=== PATIENT | female | born 1955 | race Two or more races ===

== ENCOUNTER → 2017-03-17 | Outpatient (CLI) | payer OTHER ==
[~2017-03-17] MED LIST: AMLO5TAB2 PO
[2017-03-17 13:29] LABS: Basophils # (auto) 0 uL; Basophils % (auto) 0.4 % (0.0-2.0); CONDITION Y; Eosinophils # (auto) 0 uL; Eosinophils % (auto) 0.3 % (0.0-7.0); Hematocrit 42.5 % (36.0-46.0); Hemoglobin 14.3 g/dL (12.2-16.2); Lymphocytes # (auto) 2.6 uL; Lymphocytes % (auto) 30.5 % (10.0-50.0); Mean Corpuscular Hemoglobin 31.4 pg (28.0-32.0); Mean Corpuscular Hgb Conc. 33.6 g/dL (32.0-36.0); Mean Corpuscular Volume 93.4 fL (80.0-100.0); Mean Platelet Volume 9.2 fL (7.4-10.4); Monocytes # (auto) 0.4 uL; Monocytes % (auto) 5.1 % (0.0-12.0); Neutrophils # (auto) 5.4 uL; Neutrophils % (auto) 63.7 % (37.0-80.0); Platelet Count (auto) 322 10^3/uL (140-450); Red Cell Distribution Width 15.1 % (11.6-16.0); White Blood Cell 8.6 10^3/uL (4.4-10.8)
[2017-03-17 14:03] LABS: Albumin 4.3 g/dL (3.4-5.0); BUN/Creatinine Ratio 15.7; Bilirubin, Total 0.6 mg/dL (0.2-1.0); Potassium 3.5 mmol/L (3.5-5.1)
[2017-03-17 14:06] LABS: Urine Bilirubin Negative (Negative); Urine Blood Negative /uL (Negative); Urine Color Yellow (Yellow); Urine Glucose Normal (Normal); Urine Ketone Negative (Negative); Urine Mucus FEW (None Seen); Urine RBC 4 /hpf (0 - 4); Urine Squamous Epithelial Cell MOD /hpf (<5); Urine Urobilinogen Normal (Negative); Urine pH 6.5 (5.0-8.0)
[2017-03-17 14:07] LABS: Urine Nitrite POSITIVE (Negative)
== END | disposition home or self-care (01) ==
LOC: LAB 13:08
PROVIDERS: ATTEND Internal Medicine
DX: Z00.00 Encounter for general adult medical examination without abnormal findings (principal); E78.2 Mixed hyperlipidemia; I10 Essential (primary) hypertension; E55.9 Vitamin D deficiency, unspecified
CPT/HCPCS: 36415; 80053; 80061; 81001; 82306; 84439; 84443; 84481; 85025

== ENCOUNTER 2017-07-04 08:18 | Day surgery (SDC) | payer OTHER ==
[2017-06-30 13:00] LABS: Basophils # (auto) 0 uL; Basophils % (auto) 0.7 % (0.0-2.0); Eosinophils # (auto) 0 uL; Eosinophils % (auto) 0.3 % (0.0-7.0); Hemoglobin 11.8 g/dL (12.2-16.2); Lymphocytes # (auto) 1.9 uL; Lymphocytes % (auto) 33.9 % (10.0-50.0); Mean Corpuscular Hemoglobin 29.6 pg (28.0-32.0); Mean Corpuscular Hgb Conc. 32.7 g/dL (32.0-36.0); Mean Corpuscular Volume 90.6 fL (80.0-100.0); Monocytes # (auto) 0.4 uL; Neutrophils # (auto) 3.3 uL; Neutrophils % (auto) 58.1 % (37.0-80.0); Nucleated Red Blood Cells % 0.4 %; Platelet Count (auto) 281 10^3/uL (140-450); Red Blood Cells 3.98 10^6/uL (4.0-5.20); Red Cell Distribution Width 14.1 % (11.8-14.3); White Blood Cell 5.6 10^3/uL (4.4-10.8)
[2017-06-30 13:23] LABS: INR 0.92 (0.9-1.15)
[~2017-07-04] VITALS: Ht 170.2 cm; Wt 54.4 kg
[~2017-07-04 08:18] MED LIST changes: +GEMF600T3 PO
[2017-07-04] MEDS ORDERED: LIDOCAINE VISCOUS 2% 15ML UD ONE (08:20)
[2017-07-04] MEDS ORDERED: SODIUM CHLORIDE LOCK 10 ML ONE (08:20)
[2017-07-04] MEDS ORDERED: diphenhdrAMINE HCL 50 MG/1 ML VL ONE (08:21)
[2017-07-04] MEDS: MIDAZOLAM HCL 5 MG/ML-1ML VIAL ONE ×2 (09:53→09:56)
[2017-07-04] MEDS: fentaNYL CITRATE 100 MCG/2 ML VL ONE ×2 (09:53→09:56)
[2017-07-04 10:48] VITALS: BP 117/51
== END 2017-07-04 10:58 | disposition home or self-care (01) ==
LOC: GI 08:18
PROVIDERS: ATTEND Internal Medicine Gastroenterology
DX: K29.60 Other gastritis without bleeding (principal); K25.9 Gastric ulcer, unspecified as acute or chronic, without hemorrhage or perforation; F17.210 Nicotine dependence, cigarettes, uncomplicated
CPT/HCPCS: 36415; 43239; 85025; 85610; 85730; J1200; J2250; J3010

== ENCOUNTER → 2018-05-28 | Outpatient (CLI) | payer OTHER ==
[~2018-05-28] MED LIST changes: +AMLO5TAB13 PO; -AMLO5TAB2 PO; -GEMF600T3 PO; +GEMF600T7 PO
[2018-05-28 16:09] LABS: Hepatitis B Surface Antibody Negative
[2018-05-28 16:43] LABS: Hepatitis B Surface Antigen Negative (Negative)
[2018-05-28 17:30] LABS: Hepatitis C Antibody Negative (Negative)
[2018-05-28 17:31] LABS: Hepatitis A Ab IgM Negative; Hepatitis B Core IgM Negative; Hepatitis B Core Total AB Negative
== END | disposition home or self-care (01) ==
LOC: LAB 15:14
PROVIDERS: ATTEND Internal Medicine
DX: Z20.5 Contact with and (suspected) exposure to viral hepatitis (principal)
CPT/HCPCS: 36415; 86704; 86705; 86706; 86709; 86803; 87340

== ENCOUNTER → 2018-07-08 | Outpatient (CLI) | payer OTHER | END | disposition home or self-care (01) | LOC: LAB 13:30 | PROVIDERS: ATTEND Internal Medicine Gastroenterology | DX: R10.9 Unspecified abdominal pain (principal) | CPT/HCPCS: 82270 ==

== ENCOUNTER → 2018-07-31 | Outpatient (CLI) | payer OTHER ==
[2018-07-31 13:40] LABS: Basophils # (auto) 0.1 uL; Basophils % (auto) 0.8 % (0.0-2.0); Eosinophils # (auto) 0.1 uL; Eosinophils % (auto) 0.6 % (0.0-7.0); Hematocrit 39.4 % (36.0-46.0); Hemoglobin 13.2 g/dL (12.2-16.2); Lymphocytes # (auto) 1.7 uL; Lymphocytes % (auto) 18.2 % (10.0-50.0); Mean Corpuscular Hemoglobin 33.2 pg (28.0-32.0); Mean Corpuscular Hgb Conc. 33.6 g/dL (32.0-36.0); Mean Corpuscular Volume 98.7 fL (80.0-100.0); Monocytes # (auto) 0.4 uL; Monocytes % (auto) 4.8 % (0.0-12.0); Neutrophils # (auto) 6.9 uL; Neutrophils % (auto) 75.6 % (37.0-80.0); Platelet Count (auto) 269 10^3/uL (140-450); Red Blood Cells 3.99 10^6/uL (4.0-5.20); Red Cell Distribution Width 13.9 % (11.8-14.3); White Blood Cell 9.1 10^3/uL (4.4-10.8)
[2018-07-31 14:05] LABS: Urine Bacteria NONE SEEN /hpf (None Seen); Urine Blood Negative /uL (Negative); Urine Hyaline Cast FEW /lpf (0 - 2); Urine Mucus FEW (None Seen); Urine Specific Gravity 1.016 (1.001-1.035); Urine WBC 8 /hpf (0 - 5)
[2018-07-31 14:24] LABS: Free T4 (Free Thyroxine) 0.94 ng/dL (0.89-1.76)
[2018-07-31 14:26] LABS: Albumin 4.3 g/dL (3.4-5.0); BUN/Creatinine Ratio 25.6; Calcium 11.5 mg/dL (8.5-10.1); Potassium 3.9 mmol/L (3.5-5.1)
[2018-07-31 14:31] LABS: Bilirubin, Total 0.5 mg/dL (0.2-1.0); Total Protein 7.9 g/dL (6.4-8.2)
== END | disposition home or self-care (01) ==
LOC: LAB 13:15
PROVIDERS: ATTEND Internal Medicine
DX: E55.9 Vitamin D deficiency, unspecified (principal); D64.9 Anemia, unspecified; E87.6 Hypokalemia; I10 Essential (primary) hypertension
CPT/HCPCS: 36415; 80053; 80061; 81001; 82306; 82607; 83540; 83615; 84439; 84443; 85025; 85652

== ENCOUNTER → 2018-10-26 | Outpatient (CLI) | payer OTHER ==
[2018-10-26 13:35] LABS: Potassium 3.5 mmol/L (3.5-5.1)
[2018-10-26 13:42] LABS: Calcium 11.5 mg/dL (8.5-10.1)
== END | disposition home or self-care (01) ==
LOC: LAB 12:12
PROVIDERS: ATTEND Internal Medicine
DX: E87.6 Hypokalemia (principal)
CPT/HCPCS: 36415; 82310; 83970; 84132

== ENCOUNTER → 2019-03-03 | Outpatient (CLI) | payer OTHER ==
[2019-03-03 13:46] LABS: Alanine Aminotransferase 22 U/L (13-56); Anion Gap 11 (5-15); Aspartate Aminotransferase 25 U/L (15-37); BUN/Creatinine Ratio 14.7; Blood Urea Nitrogen 15 mg/dL (7-18); Calcium 11.2 mg/dL (8.5-10.1); Carbon Dioxide 23 mmol/L (21-32); Chloride 104 mmol/L (98-107); GFR African American 70 mL/min; GFR Non-African American 58 mL/min; Glucose 171 mg/dL (74-106); Phosphorus 1.3 mg/dL (2.5-4.90); Potassium 3.7 mmol/L (3.5-5.1); Sodium 138 mmol/L (136-145)
[2019-03-03 13:49] LABS: Alkaline Phosphatase 130 U/L (45-117); Bilirubin, Total 0.6 mg/dL (0.2-1.0); Total Protein 7.9 g/dL (6.4-8.2)
[2019-03-03 14:18] LABS: Creatinine Clearance, Urine 64.08 mL/min (75-115); Creatinine, Urine 64.9 mg/dL (30.0-125.0)
[2019-03-04 08:07] LABS: Immunoglobulin G, Serum 593 mg/dL (700-1600)
== END | disposition home or self-care (01) ==
LOC: LAB 12:53
PROVIDERS: ATTEND Internal Medicine
DX: Z01.818 Encounter for other preprocedural examination (principal); E83.52 Hypercalcemia
CPT/HCPCS: 36415; 80053; 82306; 82340; 82575; 82784; 83970; 84100; 86334

== ENCOUNTER → 2020-03-31 | Outpatient (CLI) | payer OTHER ==
[~2020-03-31] MED LIST changes: -AMLO5TAB13 PO; +AMLO5TAB15 PO
[2020-03-31 12:23] LABS: Basophils # (auto) 0 10 ^3/uL (0-0.2); Basophils % (auto) 0.7 % (0.0-2.0); Eosinophils # (auto) 0.1 10 ^3/uL (0-0.8); Eosinophils % (auto) 1.4 % (0.0-7.0); Hematocrit 40.1 % (36.0-46.0); Hemoglobin 12.9 g/dL (12.2-16.2); Lymphocytes # (auto) 1.4 10 ^3/uL (0.4-5.4); Lymphocytes % (auto) 23.4 % (10.0-50.0); Mean Corpuscular Hemoglobin 29.9 pg (28.0-32.0); Mean Corpuscular Hgb Conc. 32.1 g/dL (32.0-36.0); Mean Corpuscular Volume 93.1 fL (80.0-100.0); Monocytes # (auto) 0.5 10 ^3/uL (0-1.3); Monocytes % (auto) 7.8 % (0.0-12.0); Neutrophils # (auto) 4.1 10 ^3/uL (1.6-8.6); Neutrophils % (auto) 66.7 % (37.0-80.0); Nucleated Red Blood Cells % 0.1 %; Platelet Count (auto) 250 10^3/uL (140-450); Red Blood Cells 4.31 10^6/uL (4.0-5.20); Red Cell Distribution Width 15.2 % (11.8-14.3); White Blood Cell 6.2 10^3/uL (4.4-10.8)
[2020-03-31 12:29] LABS: Urine Bacteria FEW /hpf (None Seen); Urine Blood Negative /uL (Negative); Urine Mucus FEW (None Seen); Urine Specific Gravity 1.019 (1.001-1.035); Urine WBC 639 /hpf (0 - 5); Urine WBC Clumps PRESENT /hpf (None Seen)
[2020-03-31 12:48] LABS: Potassium 3.4 mmol/L (3.5-5.1)
[2020-03-31 13:03] LABS: Albumin 3.7 g/dL (3.4-5.0); BUN/Creatinine Ratio 14.3; Bilirubin, Total 0.4 mg/dL (0.2-1.0); Calcium 10.5 mg/dL (8.5-10.1); Total Protein 7.3 g/dL (6.4-8.2)
== END | disposition home or self-care (01) ==
LOC: LAB 11:56
PROVIDERS: ATTEND Internal Medicine
DX: E83.52 Hypercalcemia (principal); M85.80 Other specified disorders of bone density and structure, unspecified site; E78.5 Hyperlipidemia, unspecified; I10 Essential (primary) hypertension
CPT/HCPCS: 36415; 80053; 80061; 81001; 82043; 83970; 84439; 84443; 85025; 85652

== ENCOUNTER → 2020-04-04 | Outpatient (CLI) | payer OTHER | END | disposition home or self-care (01) | LOC: LAB 13:10 | PROVIDERS: ATTEND Internal Medicine | DX: E78.5 Hyperlipidemia, unspecified (principal) ==

== ENCOUNTER → 2020-05-05 | Outpatient (CLI) | payer OTHER | END | disposition home or self-care (01) | LOC: LAB 14:49 | PROVIDERS: ATTEND Internal Medicine | DX: I10 Essential (primary) hypertension (principal) ==

== ENCOUNTER → 2020-06-02 | Outpatient (CLI) | payer OTHER | END | disposition home or self-care (01) | LOC: LAB 11:36 | PROVIDERS: ATTEND Internal Medicine | DX: E83.52 Hypercalcemia (principal) | CPT/HCPCS: 36415; 82565; 84520 ==

== ENCOUNTER → 2020-06-09 | Outpatient (CLI) | payer OTHER ==
[2020-06-09 13:55] LABS: Calcium 10.2 mg/dL (8.5-10.1); Potassium 4.4 mmol/L (3.5-5.1)
== END | disposition home or self-care (01) ==
LOC: LAB 12:43
PROVIDERS: ATTEND Internal Medicine
DX: Z01.818 Encounter for other preprocedural examination (principal)
CPT/HCPCS: 36415; 80048

== ENCOUNTER → 2021-04-12 | Outpatient (CLI) | payer OTHER ==
[~2021-04-12] MED LIST changes: +AMLO-489 PO; -AMLO5TAB15 PO; +GEMF-19 PO; -GEMF600T7 PO
[2021-04-12 08:28] LABS: Basophils # (auto) 0.1 10 ^3/uL (0-0.2); Basophils % (auto) 1.1 % (0.0-2.0); Eosinophils # (auto) 0.1 10 ^3/uL (0-0.8); Eosinophils % (auto) 1.5 % (0.0-7.0); Hematocrit 38.8 % (36.0-46.0); Hemoglobin 12.7 g/dL (12.2-16.2); Lymphocytes # (auto) 2.5 10 ^3/uL (0.4-5.4); Lymphocytes % (auto) 46.2 % (10.0-50.0); Mean Corpuscular Hemoglobin 29.3 pg (28.0-32.0); Mean Corpuscular Hgb Conc. 32.6 g/dL (32.0-36.0); Mean Corpuscular Volume 89.9 fL (80.0-100.0); Monocytes # (auto) 0.4 10 ^3/uL (0-1.3); Neutrophils # (auto) 2.4 10 ^3/uL (1.6-8.6); Neutrophils % (auto) 44.2 % (37.0-80.0); Red Blood Cells 4.32 10^6/uL (4.0-5.20); Red Cell Distribution Width 17.6 % (11.8-14.3); White Blood Cell 5.4 10^3/uL (4.4-10.8)
[2021-04-12 08:31] LABS: Urine Bacteria FEW /hpf (None Seen); Urine Blood Negative /uL (Negative); Urine Hyaline Cast FEW /lpf (0 - 2); Urine Specific Gravity 1.019 (1.001-1.035); Urine WBC 37 /hpf (0 - 5)
[2021-04-12 09:15] LABS: Potassium 3.1 mmol/L (3.5-5.1)
[2021-04-12 09:26] LABS: BUN/Creatinine Ratio 24.7; Bilirubin, Total 0.3 mg/dL (0.2-1.0); Calcium 9.5 mg/dL (8.5-10.1); Total Protein 6.5 g/dL (6.4-8.2)
== END | disposition home or self-care (01) ==
LOC: LAB 07:54
PROVIDERS: ATTEND Internal Medicine
DX: I10 Essential (primary) hypertension (principal)
CPT/HCPCS: 36415; 80053; 80061; 81001; 83970; 84439; 84443; 85025; 85652

== ENCOUNTER → 2021-12-18 | Outpatient (CLI) | payer OTHER ==
[2021-12-18 11:57] LABS: Basophils # (auto) 0.1 10 ^3/uL (0-0.2); Eosinophils # (auto) 0 10 ^3/uL (0-0.8); Eosinophils % (auto) 0.8 % (0.0-7.0); Hematocrit 41.2 % (36.0-46.0); Hemoglobin 13.7 g/dL (12.2-16.2); Lymphocytes # (auto) 1.7 10 ^3/uL (0.4-5.4); Lymphocytes % (auto) 31.9 % (10.0-50.0); Mean Corpuscular Hemoglobin 31.1 pg (28.0-32.0); Mean Corpuscular Hgb Conc. 33.3 g/dL (32.0-36.0); Mean Corpuscular Volume 93.5 fL (80.0-100.0); Monocytes # (auto) 0.4 10 ^3/uL (0-1.3); Monocytes % (auto) 8.2 % (0.0-12.0); Neutrophils # (auto) 3.1 10 ^3/uL (1.6-8.6); Neutrophils % (auto) 58.1 % (37.0-80.0); Nucleated Red Blood Cells % 0.2 %; Red Blood Cells 4.41 10^6/uL (4.0-5.20); Red Cell Distribution Width 16.1 % (11.8-14.3); White Blood Cell 5.3 10^3/uL (4.4-10.8)
[2021-12-18 12:10] LABS: INR 1.02 (0.9-1.15)
[2021-12-18 12:30] LABS: Albumin 3.1 g/dL (3.4-5.0); Calcium 9.2 mg/dL (8.5-10.1); Potassium 4.1 mmol/L (3.5-5.1)
[2021-12-18 12:33] LABS: Bilirubin, Total 0.5 mg/dL (0.2-1.0); Total Protein 6.2 g/dL (6.4-8.2)
== END | disposition home or self-care (01) ==
LOC: LAB 11:25
PROVIDERS: ATTEND Internal Medicine
DX: T14.8XXA Other injury of unspecified body region, initial encounter (principal); I10 Essential (primary) hypertension; R53.83 Other fatigue; X58.XXXA Exposure to other specified factors, initial encounter; Y93.89 Activity, other specified; Y92.89 Other specified places as the place of occurrence of the external cause; Y99.8 Other external cause status
CPT/HCPCS: 36415; 80053; 82140; 84439; 84443; 85025; 85610

== ENCOUNTER 2022-08-08 11:30 | Inpatient (IN) | payer OTHER ==
[~2022-08-08] VITALS: Ht 170.2 cm; Wt 54.3 kg
[2022-08-08 12:13] LABS: Basophils # (auto) 0.1 10 ^3/uL (0-0.2); Eosinophils # (auto) 0 10 ^3/uL (0-0.8); Eosinophils % (auto) 0.2 % (0.0-7.0); Hematocrit 43.5 % (36.0-46.0); Hemoglobin 14.2 g/dL (12.2-16.2); Lymphocytes # (auto) 1.5 10 ^3/uL (0.4-5.4); Lymphocytes % (auto) 29.1 % (10.0-50.0); Mean Corpuscular Hemoglobin 30.2 pg (28.0-32.0); Mean Corpuscular Hgb Conc. 32.7 g/dL (32.0-36.0); Mean Corpuscular Volume 92.6 fL (80.0-100.0); Monocytes # (auto) 0.4 10 ^3/uL (0-1.3); Monocytes % (auto) 7.9 % (0.0-12.0); Neutrophils # (auto) 3.3 10 ^3/uL (1.6-8.6); Neutrophils % (auto) 61.8 % (37.0-80.0); Nucleated Red Blood Cells % 0.1 %; Red Cell Distribution Width 16.2 % (11.8-14.3); White Blood Cell 5.3 10^3/uL (4.4-10.8)
[2022-08-08 12:24] LABS: INR 0.92 (0.9-1.15); Partial Thromboplastin Time 28.7 sec (24.6-33.4)
[2022-08-08 12:41] LABS: Albumin 2.6 g/dL (3.4-5.0); Calcium 10.3 mg/dL (8.5-10.1); Magnesium 1.8 mg/dL (1.6-2.6); Potassium 3.8 mmol/L (3.5-5.1)
[2022-08-08 12:44] LABS: Bilirubin, Total 0.4 mg/dL (0.2-1.0); Total Protein 5.6 g/dL (6.4-8.2)
[2022-08-08] MEDS ORDERED: DOCUSATE SOD 100 MG CAP PO PRN (15:00)
[2022-08-08] MEDS ORDERED: ONDANSETRON HCL 4 MG/2 ML VIAL IV PRN (15:00)
[2022-08-08] MEDS ORDERED: hydrALAZINE HCL 20 MG/ML VL IV PRN (15:30)
[2022-08-08] MEDS: HYDROcodone-ACET 5/325MG TAB PO PRN ×2 (15:52→21:22)
[2022-08-08] MEDS ORDERED: MAGN400T6 PO (19:15)
[2022-08-08] MEDS ORDERED: PANT40T PO (19:15)
[2022-08-08] MEDS ORDERED: ALEN70TA74 PO (19:15)
[2022-08-08] MEDS ORDERED: FLUT110A INH (19:15)
[2022-08-08] MEDS ORDERED: TRAM50TA2 PO (19:15)
[2022-08-08] MEDS ORDERED: POTA-264 (19:15)
[2022-08-08 20:00] VITALS: BP 132/82
[2022-08-08] MEDS: GEMFIBROZIL 600 MG TAB PO SCH (21:35)
[2022-08-08 22:00] VITALS: BP 132/82
[2022-08-09] VITALS (9 sets, daily range): BP systolic 78–140; BP diastolic 48–85
[2022-08-09] MEDS: MORPHINE SULFATE INJ 2 MG/ml SYRG IV PRN ×2 (02:45→09:06)
[2022-08-09 06:00] LABS: Basophils # (auto) 0 10 ^3/uL (0-0.2); Basophils % (auto) 0.7 % (0.0-2.0); Eosinophils # (auto) 0 10 ^3/uL (0-0.8); Eosinophils % (auto) 0.4 % (0.0-7.0); Hematocrit 39.9 % (36.0-46.0); Hemoglobin 13.1 g/dL (12.2-16.2); Lymphocytes # (auto) 1.9 10 ^3/uL (0.4-5.4); Lymphocytes % (auto) 31.2 % (10.0-50.0); Mean Corpuscular Hemoglobin 30.9 pg (28.0-32.0); Mean Corpuscular Hgb Conc. 32.9 g/dL (32.0-36.0); Mean Corpuscular Volume 94.2 fL (80.0-100.0); Monocytes # (auto) 0.6 10 ^3/uL (0-1.3); Monocytes % (auto) 10.2 % (0.0-12.0); Neutrophils # (auto) 3.6 10 ^3/uL (1.6-8.6); Neutrophils % (auto) 57.5 % (37.0-80.0); Nucleated Red Blood Cells % 0.2 %; Red Blood Cells 4.24 10^6/uL (4.0-5.20); Red Cell Distribution Width 16.1 % (11.8-14.3); White Blood Cell 6.2 10^3/uL (4.4-10.8)
[2022-08-09 06:24] LABS: Albumin 2.2 g/dL (3.4-5.0); Calcium 9.7 mg/dL (8.5-10.1); Potassium 3.9 mmol/L (3.5-5.1)
[2022-08-09 06:27] LABS: BUN/Creatinine Ratio 27.9
[2022-08-09 06:29] LABS: Bilirubin, Total 0.4 mg/dL (0.2-1.0); Total Protein 4.7 g/dL (6.4-8.2)
[2022-08-09] MEDS ORDERED: BUPIVACAINE 0.25% INJ 50ML VIAL ONE (08:22)
[2022-08-09] MEDS ORDERED: EPINEPHrine HCL 1 MG/1 ML AMP ONE (08:22)
[2022-08-09] MEDS ORDERED: TRANEXAMIC ACID 20 ML ONE (08:22)
[2022-08-09] MEDS ORDERED: VANCOMYCIN HCL 1000 MG VL ONE (08:23)
[2022-08-09] MEDS ORDERED: MORPHINE SULF PF 5 MG/10 ML VIAL ONE ×2 (08:28→10:41)
[2022-08-09] MEDS ORDERED: KETOROLAC TROMETH 30 MG/ML 1ML VIAL ONE (08:29)
[2022-08-09] MEDS: amLODIPine BESYLATE 5 MG TAB PO SCH (10:00)
[2022-08-09] MEDS: GEMFIBROZIL 600 MG TAB PO SCH ×2 (10:00→21:28)
[2022-08-09] MEDS: ENOXAPARIN SOD 40 MG/0.4 ML SYRINGE SC SCH (10:00)
[2022-08-09] MEDS ORDERED: ceFAZolin 1GM/50ML 100 ML IV ONE (10:07)
[2022-08-09] MEDS ORDERED: TETRACAINE 1% INJ 2 ML VIAL IJ ONE (10:19)
[2022-08-09] MEDS ORDERED: fentaNYL CITRATE 100 MCG/2 ML VL ONE (10:36)
[2022-08-09] MEDS ORDERED: MIDAZOLAM HCL 2MG/2ML 2ml VIAL (1mg/ml) ONE (10:36)
[2022-08-09] MEDS ORDERED: LIDOCAINE 2% (LOCAL ANESTH.) PF 5ml SDV ONE (10:38)
[2022-08-09] MEDS ORDERED: ONDANSETRON HCL 4 MG/2 ML VIAL ONE (10:38)
[2022-08-09] MEDS ORDERED: PROPOFOL 10 MG/ML 20 ML IV ONE ×2 (10:39→12:55)
[2022-08-09] MEDS ORDERED: DexAMETHasone SOD PHOS 10MG/1ML VIAL INJ IV PRN (12:45)
[2022-08-09] MEDS ORDERED: HYDROmorphone HCL 2 MG/ML VL/or syr IV PRN (12:45)
[2022-08-09] MEDS ORDERED: NALBUPHINE HCL 10 MG/1ml INJECTION SUBCUT ONE (12:45)
[2022-08-09] MEDS ORDERED: ONDANSETRON HCL 4 MG/2 ML VIAL IV PRN (12:45)
[2022-08-09] MEDS ORDERED: KETOROLAC TROMETH 30 MG/ML 1ML VIAL IV PRN (12:45)
[2022-08-09] MEDS ORDERED: diphenhdrAMINE HCL 50 MG/1 ML VL IV PRN (12:45)
[2022-08-09] MEDS ORDERED: NALOXONE HCL 0.4 MG/ML VIAL IV PRN (12:45)
[2022-08-09] MEDS ORDERED: ENOXAPARIN SOD 40 MG/0.4 ML SYRINGE SC ONE (13:15)
[2022-08-09] MEDS: ceFAZolin 2 GM in D5W 5% 100 ML IV SCH (21:29)
[2022-08-10] VITALS (23 sets, daily range): BP systolic 74–116; BP diastolic 43–74
[2022-08-10] MEDS: ceFAZolin 2 GM in D5W 5% 100 ML IV SCH (05:15)
[2022-08-10 05:41] LABS: Basophils # (auto) 0.1 10 ^3/uL (0-0.2); Basophils % (auto) 0.8 % (0.0-2.0); Eosinophils # (auto) 0 10 ^3/uL (0-0.8); Eosinophils % (auto) 0.1 % (0.0-7.0); Hematocrit 26.5 % (36.0-46.0); Hemoglobin 8.7 g/dL (12.2-16.2); Lymphocytes # (auto) 1.9 10 ^3/uL (0.4-5.4); Lymphocytes % (auto) 25.6 % (10.0-50.0); Mean Corpuscular Hemoglobin 30.9 pg (28.0-32.0); Mean Corpuscular Volume 93.8 fL (80.0-100.0); Monocytes # (auto) 0.5 10 ^3/uL (0-1.3); Monocytes % (auto) 7.3 % (0.0-12.0); Neutrophils # (auto) 4.8 10 ^3/uL (1.6-8.6); Neutrophils % (auto) 66.2 % (37.0-80.0); Red Blood Cells 2.82 10^6/uL (4.0-5.20); White Blood Cell 7.3 10^3/uL (4.4-10.8)
[2022-08-10 05:58] LABS: BUN/Creatinine Ratio 20.3; Calcium 9.1 mg/dL (8.5-10.1); Potassium 4.3 mmol/L (3.5-5.1)
[2022-08-10] MEDS: KETOROLAC TROMETH 30 MG/ML 1ML VIAL IV PRN ×2 (08:31→22:59)
[2022-08-10] MEDS: PANTOPRAZOLE 40 MG TAB PO SCH (08:32)
[2022-08-10] MEDS: ENOXAPARIN SOD 40 MG/0.4 ML SYRINGE SC SCH (08:32)
[2022-08-10] MEDS: amLODIPine BESYLATE 5 MG TAB PO SCH (08:32)
[2022-08-10] MEDS: GEMFIBROZIL 600 MG TAB PO SCH ×2 (08:32→20:35)
[2022-08-10] MEDS: HYDROcodone-ACET 5/325MG TAB PO PRN ×3 (10:51→20:34)
[2022-08-11] MEDS: HYDROcodone-ACET 5/325MG TAB PO PRN ×3 (06:05→16:16)
[2022-08-11] MEDS: ENOXAPARIN SOD 40 MG/0.4 ML SYRINGE SC SCH (08:18)
[2022-08-11] MEDS: PANTOPRAZOLE 40 MG TAB PO SCH (08:18)
[2022-08-11] MEDS: GEMFIBROZIL 600 MG TAB PO SCH ×2 (08:18→21:09)
[2022-08-11 09:01] VITALS: BP 113/59
[2022-08-11] MEDS: amLODIPine BESYLATE 5 MG TAB PO SCH (10:00)
[2022-08-11 14:20] VITALS: BP 100/59
[2022-08-11 17:00] VITALS: BP 105/63
[2022-08-11 22:00] VITALS: BP 104/61
[2022-08-12] MEDS: KETOROLAC TROMETH 30 MG/ML 1ML VIAL IV PRN ×2 (00:46→12:12)
[2022-08-12 05:00] VITALS: BP 99/60
[2022-08-12] MEDS: HYDROcodone-ACET 5/325MG TAB PO PRN ×3 (06:29→21:46)
[2022-08-12 08:30] VITALS: BP 119/68
[2022-08-12] MEDS: amLODIPine BESYLATE 5 MG TAB PO SCH (08:37)
[2022-08-12] MEDS: ENOXAPARIN SOD 40 MG/0.4 ML SYRINGE SC SCH (08:42)
[2022-08-12] MEDS: PANTOPRAZOLE 40 MG TAB PO SCH (08:42)
[2022-08-12] MEDS: GEMFIBROZIL 600 MG TAB PO SCH ×2 (08:42→21:43)
[2022-08-12 12:55] VITALS: BP 102/53
[2022-08-12 14:23] LABS: Hematocrit 21.9 % (36.0-46.0); Hemoglobin 7.4 g/dL (12.2-16.2)
[2022-08-12] MEDS ORDERED: SODIUM FERR GLUC 62.5MG/5ML 125 MG in SODIUM CHL 0.9% 100 ML IV ONE (14:45)
[2022-08-12] MEDS ORDERED: POLYETHYLENE GLYCOL 17 GM PWDR PO ONE (14:45)
[2022-08-12 15:44] LABS: % Iron Saturation 14.7 % (15-50)
[2022-08-12 15:52] LABS: Ferritin 66.4 ng/mL (10-322); Folate (Folic Acid) 8.39 ng/mL (5.38-24)
[2022-08-12 15:53] LABS: Thyroid Stimulating Hormone 6.89 uIU/mL (0.358-3.74)
[2022-08-12 16:57] VITALS: BP 113/69
[2022-08-12] MEDS ORDERED: IRON SUCROSE COMPLEX 200 MG in SODIUM CHL 0.9% 100 ML IV ONE (18:00)
[2022-08-12 18:03] LABS: Urine Bacteria FEW /hpf (None Seen); Urine Blood Negative /uL (Negative); Urine Hyaline Cast FEW /lpf (0 - 2); Urine Mucus FEW (None Seen); Urine Specific Gravity 1.015 (1.001-1.035); Urine WBC 4 /hpf (0 - 5)
[2022-08-12 22:00] VITALS: BP 99/63
[2022-08-13] MEDS: HYDROcodone-ACET 5/325MG TAB PO PRN ×4 (03:48→20:17)
[2022-08-13 05:00] VITALS: BP 92/61
[2022-08-13 05:34] LABS: Eosinophils # (auto) 0.1 10 ^3/uL (0-0.8); Hemoglobin 7.8 g/dL (12.2-16.2); Neutrophils # (auto) 4.5 10 ^3/uL (1.6-8.6); Nucleated Red Blood Cells % 0.1 %; Red Cell Distribution Width 15.5 % (11.8-14.3); White Blood Cell 8.6 10^3/uL (4.4-10.8)
[2022-08-13 05:38] LABS: Basophils # (auto) 0.1 10 ^3/uL (0-0.2); Basophils % (auto) 0.6 % (0.0-2.0); Eosinophils % (auto) 0.9 % (0.0-7.0); Hematocrit 22.7 % (36.0-46.0); Lymphocytes # (auto) 3.2 10 ^3/uL (0.4-5.4); Lymphocytes % (auto) 37.4 % (10.0-50.0); Mean Corpuscular Hgb Conc. 34.6 g/dL (32.0-36.0); Mean Corpuscular Volume 95.5 fL (80.0-100.0); Monocytes # (auto) 0.7 10 ^3/uL (0-1.3); Monocytes % (auto) 8.4 % (0.0-12.0); Neutrophils % (auto) 52.7 % (37.0-80.0); Red Blood Cells 2.37 10^6/uL (4.0-5.20)
[2022-08-13 06:00] LABS: BUN/Creatinine Ratio 32.2; Calcium 10.1 mg/dL (8.5-10.1); Potassium 5.1 mmol/L (3.5-5.1)
[2022-08-13 09:25] VITALS: BP 117/69
[2022-08-13] MEDS: POLYETHYLENE GLYCOL 17 GM PWDR PO SCH (10:47)
[2022-08-13] MEDS: ENOXAPARIN SOD 40 MG/0.4 ML SYRINGE SC SCH (10:48)
[2022-08-13] MEDS: amLODIPine BESYLATE 5 MG TAB PO SCH (10:48)
[2022-08-13] MEDS: PANTOPRAZOLE 40 MG TAB PO SCH ×2 (10:48→21:50)
[2022-08-13] MEDS: GEMFIBROZIL 600 MG TAB PO SCH ×2 (10:48→21:50)
[2022-08-13] MEDS: IRON SUCROSE COMPLEX 200 MG in SODIUM CHL 0.9% 100 ML IV SCH (11:39)
[2022-08-13 12:37] VITALS: BP 103/61
[2022-08-13 16:50] VITALS: BP 102/62
[2022-08-13 23:30] VITALS: BP 100/64
[2022-08-14] VITALS (7 sets, daily range): BP systolic 103–123; BP diastolic 54–71
[2022-08-14] MEDS: KETOROLAC TROMETH 30 MG/ML 1ML VIAL IV PRN ×2 (01:52→10:50)
[2022-08-14 05:34] LABS: Eosinophils # (auto) 0.1 10 ^3/uL (0-0.8); Monocytes # (auto) 0.7 10 ^3/uL (0-1.3); Neutrophils # (auto) 2.7 10 ^3/uL (1.6-8.6); Nucleated Red Blood Cells % 0.1 %; Red Cell Distribution Width 15.7 % (11.8-14.3)
[2022-08-14 05:39] LABS: Albumin 1.9 g/dL (3.4-5.0); Potassium 4.7 mmol/L (3.5-5.1)
[2022-08-14 05:42] LABS: Basophils # (auto) 0 10 ^3/uL (0-0.2); Basophils % (auto) 0.8 % (0.0-2.0); Eosinophils % (auto) 1.3 % (0.0-7.0); Hematocrit 21.5 % (36.0-46.0); Lymphocytes % (auto) 36.2 % (10.0-50.0); Mean Corpuscular Hgb Conc. 32.4 g/dL (32.0-36.0); Mean Corpuscular Volume 95.7 fL (80.0-100.0); Neutrophils % (auto) 48.7 % (37.0-80.0); Red Blood Cells 2.24 10^6/uL (4.0-5.20); White Blood Cell 5.6 10^3/uL (4.4-10.8)
[2022-08-14 05:43] LABS: BUN/Creatinine Ratio 29.7; Bilirubin, Total 0.8 mg/dL (0.2-1.0); Total Protein 4.6 g/dL (6.4-8.2)
[2022-08-14] MEDS: HYDROcodone-ACET 5/325MG TAB PO PRN ×2 (07:02→21:40)
[2022-08-14] MEDS: LEVOTHYROXINE SODIUM 25 MCG TAB PO SCH (07:02)
[2022-08-14] MEDS: PANTOPRAZOLE 40 MG TAB PO SCH ×2 (08:45→21:40)
[2022-08-14] MEDS: amLODIPine BESYLATE 5 MG TAB PO SCH (08:45)
[2022-08-14] MEDS: GEMFIBROZIL 600 MG TAB PO SCH ×2 (08:46→21:40)
[2022-08-14] MEDS: POLYETHYLENE GLYCOL 17 GM PWDR PO SCH (08:46)
[2022-08-14] MEDS: IRON SUCROSE COMPLEX 200 MG in SODIUM CHL 0.9% 100 ML IV SCH (13:25)
[2022-08-14] MEDS ORDERED: dilTIAZem 25 MG/5 ML VIAL IV ONE (17:00)
[2022-08-14 18:05] LABS: Basophils # (auto) 0 10 ^3/uL (0-0.2); Eosinophils # (auto) 0 10 ^3/uL (0-0.8); Neutrophils # (auto) 3.5 10 ^3/uL (1.6-8.6)
[2022-08-14 18:07] LABS: Basophils % (auto) 0.7 % (0.0-2.0); Eosinophils % (auto) 0.7 % (0.0-7.0); Hematocrit 27.5 % (36.0-46.0); Hemoglobin 9.2 g/dL (12.2-16.2); Lymphocytes # (auto) 1.8 10 ^3/uL (0.4-5.4); Lymphocytes % (auto) 29.7 % (10.0-50.0); Mean Corpuscular Hemoglobin 31.9 pg (28.0-32.0); Mean Corpuscular Hgb Conc. 33.5 g/dL (32.0-36.0); Mean Corpuscular Volume 95.1 fL (80.0-100.0); Monocytes # (auto) 0.7 10 ^3/uL (0-1.3); Monocytes % (auto) 11.5 % (0.0-12.0); Neutrophils % (auto) 57.4 % (37.0-80.0); Nucleated Red Blood Cells % 0.1 %; Red Cell Distribution Width 15.7 % (11.8-14.3); White Blood Cell 6.2 10^3/uL (4.4-10.8)
[2022-08-15] MEDS: HYDROcodone-ACET 5/325MG TAB PO PRN ×2 (01:57→09:33)
[2022-08-15 05:26] LABS: White Blood Cell 5.3 10^3/uL (4.4-10.8)
[2022-08-15 05:28] LABS: Hematocrit 26.6 % (36.0-46.0); Hemoglobin 8.8 g/dL (12.2-16.2); Mean Corpuscular Hemoglobin 31.2 pg (28.0-32.0); Mean Corpuscular Volume 94.5 fL (80.0-100.0); Red Blood Cells 2.82 10^6/uL (4.0-5.20); Red Cell Distribution Width 16.2 % (11.8-14.3)
[2022-08-15 05:41] LABS: Albumin 2.1 g/dL (3.4-5.0); Calcium 9.9 mg/dL (8.5-10.1); Magnesium 2.2 mg/dL (1.6-2.6); Potassium 4.5 mmol/L (3.5-5.1)
[2022-08-15 05:46] LABS: BUN/Creatinine Ratio 45.2; Bilirubin, Total 0.8 mg/dL (0.2-1.0); Phosphorus 2.7 mg/dL (2.5-4.90); Total Protein 4.9 g/dL (6.4-8.2)
[2022-08-15] MEDS: LEVOTHYROXINE SODIUM 25 MCG TAB PO SCH (05:59)
[2022-08-15 06:55] LABS: Basophils % (manual) 0 (0.0-2.0); Blast Cells 0; Eosinophils % (manual) 0 (0-7); Myelocytes % 0; Promyelocytes % 0; Reactive Lymphocytes 0
[2022-08-15 08:58] LABS: Band Neutrophils % (manual) 1; Lymphocytes % (manual) 27 (10.0-50.0); Metamyelocytes % 2; Monocytes % (manual) 6 (0-12)
[2022-08-15 09:00] VITALS: BP 117/76
[2022-08-15] MEDS: PANTOPRAZOLE 40 MG TAB PO SCH (09:33)
[2022-08-15] MEDS: GEMFIBROZIL 600 MG TAB PO SCH (09:33)
[2022-08-15] MEDS: POLYETHYLENE GLYCOL 17 GM PWDR PO SCH (09:34)
[2022-08-15] MEDS: amLODIPine BESYLATE 5 MG TAB PO SCH (09:34)
[2022-08-15] MEDS ORDERED: POLY33504 PO (10:51)
[2022-08-15] MEDS ORDERED: FERRTAB18 OR (10:51)
[2022-08-15] MEDS ORDERED: ERGO1CAP23 PO (10:51)
[2022-08-15] MEDS ORDERED: LEV25T PO (10:51)
[2022-08-15] MEDS ORDERED: PANT40T PO (10:51)
[2022-08-15] MEDS ORDERED: SODIUM FERR GLUC 62.5MG/5ML 125 MG in SODIUM CHL 0.9% 100 ML IV SCH (12:00)
[2022-08-15 13:17] VITALS: BP 132/76
[2022-08-15 14:04] LABS: Hemoglobin 9.6 g/dL (12.2-16.2)
== END 2022-08-15 14:05 | disposition home health service (06) | DRG 521 ==
LOC: EDBD 11:30 → ER 11:30 → OVERFLOW 15:05 → EAST 17:25 → TELE-EAST 08-09 16:59
PROVIDERS: ADMIT Nurse Practitioner Family; ATTEND Internal Medicine
PROC: 0SRS019 Replacement of Left Hip Joint, Femoral Surface with Metal Synthetic Substitute, Cemented, Open Approach (ICD-10-PCS; principal; 2022-08-09 10:46)
PROC: 30233N1 Transfusion of Nonautologous Red Blood Cells into Peripheral Vein, Percutaneous Approach (ICD-10-PCS; 2022-08-14)
DX: S72.012A Unspecified intracapsular fracture of left femur, initial encounter for closed fracture (principal); E43 Unspecified severe protein-calorie malnutrition; S02.82XA Fracture of other specified skull and facial bones, left side, initial encounter for closed fracture; I16.1 Hypertensive emergency; Z68.1 Body mass index [BMI] 19.9 or less, adult; E78.5 Hyperlipidemia, unspecified; R00.0 Tachycardia, unspecified; D64.9 Anemia, unspecified; E03.9 Hypothyroidism, unspecified; F17.210 Nicotine dependence, cigarettes, uncomplicated; Z20.822 Contact with and (suspected) exposure to COVID-19; I10 Essential (primary) hypertension; W01.0XXA Fall on same level from slipping, tripping and stumbling without subsequent striking against object, initial encounter; M81.0 Age-related osteoporosis without current pathological fracture; Z90.49 Acquired absence of other specified parts of digestive tract; Z91.81 History of falling; Z98.51 Tubal ligation status; Y93.89 Activity, other specified; Y92.89 Other specified places as the place of occurrence of the external cause; Y99.8 Other external cause status
CPT/HCPCS: 36415; 71045; 72170; 73501; 73502; 73560; 80048; 80053; 80320; 81001; 82270; 82306; 82607; 82728; 82746; 83540; 83550; 83615; 83735; 84100; 84439; 84443; 85007; 85014; 85018; 85025; 85027; 85045; 85610; 85730; 86850; 86900; 86901; 86920; 87426; 93005; 93306; 93926; 93970; 94762; 97110; 97116; 97163; 97530; A4565; G0378; J0171; J0690; J1756; J1885; J2001; J2250; J2405; J2704; J3490; J7060

== ENCOUNTER → 2022-08-20 | Outpatient (CLI) | payer OTHER ==
[~2022-08-20] MED LIST changes: +ALEN70TA74 PO; +ERGO1CAP23 PO; +FERRTAB18 OR; +FLUT110A INH; +LEV25T PO; +MAGN400T6 PO; +PANT40T PO; +POLY33504 PO; +TRAM50TA2 PO
[2022-08-20 12:40] LABS: Basophils # (auto) 0.1 10 ^3/uL (0-0.2); Eosinophils # (auto) 0 10 ^3/uL (0-0.8); Eosinophils % (auto) 0.3 % (0.0-7.0); Mean Corpuscular Volume 97.9 fL (80.0-100.0); Monocytes # (auto) 0.4 10 ^3/uL (0-1.3)
[2022-08-20 12:42] LABS: Basophils % (auto) 0.7 % (0.0-2.0); Hemoglobin 10.9 g/dL (12.2-16.2); Lymphocytes # (auto) 1.4 10 ^3/uL (0.4-5.4); Lymphocytes % (auto) 17.8 % (10.0-50.0); Mean Corpuscular Hemoglobin 33.3 pg (28.0-32.0); Monocytes % (auto) 4.8 % (0.0-12.0); Neutrophils # (auto) 5.9 10 ^3/uL (1.6-8.6); Neutrophils % (auto) 76.4 % (37.0-80.0); Red Blood Cells 3.26 10^6/uL (4.0-5.20); Red Cell Distribution Width 16.7 % (11.8-14.3); White Blood Cell 7.7 10^3/uL (4.4-10.8)
== END | disposition home or self-care (01) ==
LOC: LAB 12:29
PROVIDERS: ATTEND Internal Medicine
DX: I10 Essential (primary) hypertension (principal)
CPT/HCPCS: 36415; 85025

== ENCOUNTER → 2022-11-26 | Outpatient (CLI) | payer MEDICARE ==
[2022-11-26 11:47] LABS: Basophils # (auto) 0.1 10 ^3/uL (0-0.2); Eosinophils # (auto) 0 10 ^3/uL (0-0.8); Eosinophils % (auto) 0.3 % (0.0-7.0); Hematocrit 44.4 % (36.0-46.0); Hemoglobin 15.4 g/dL (12.2-16.2); Lymphocytes # (auto) 1.7 10 ^3/uL (0.4-5.4); Lymphocytes % (auto) 29.9 % (10.0-50.0); Mean Corpuscular Hgb Conc. 34.8 g/dL (32.0-36.0); Mean Corpuscular Volume 94.9 fL (80.0-100.0); Monocytes # (auto) 0.5 10 ^3/uL (0-1.3); Monocytes % (auto) 8.5 % (0.0-12.0); Neutrophils # (auto) 3.3 10 ^3/uL (1.6-8.6); Neutrophils % (auto) 60.3 % (37.0-80.0); Nucleated Red Blood Cells % 0.1 %; Red Blood Cells 4.68 10^6/uL (4.0-5.20); Red Cell Distribution Width 13.7 % (11.8-14.3); White Blood Cell 5.5 10^3/uL (4.4-10.8)
[2022-11-26 12:16] LABS: Albumin 3.2 g/dL (3.4-5.0); Potassium 3.8 mmol/L (3.5-5.1)
[2022-11-26 12:21] LABS: BUN/Creatinine Ratio 17.7 (10.0-20.0); Bilirubin, Total 0.5 mg/dL (0.2-1.0); Total Protein 6.9 g/dL (6.4-8.2)
[2022-11-26 12:27] LABS: Free T4 (Free Thyroxine) 0.62 ng/dL (0.89-1.76)
[2022-11-26 12:52] LABS: Urine Bacteria FEW /hpf (None Seen); Urine Blood TRACE /uL (Negative); Urine Specific Gravity 1.016 (1.001-1.035); Urine WBC 155 /hpf (0 - 5); Urine WBC Clumps PRESENT /hpf (None Seen)
[2022-11-29 12:26] LABS: Urine Bacteria FEW /hpf (None Seen); Urine Blood Negative /uL (Negative); Urine Hyaline Cast FEW /lpf (0 - 2); Urine Specific Gravity 1.009 (1.001-1.035); Urine WBC 135 /hpf (0 - 5)
== END | disposition home or self-care (01) ==
LOC: LAB 11:31
PROVIDERS: ATTEND Internal Medicine
DX: I10 Essential (primary) hypertension (principal); E03.9 Hypothyroidism, unspecified; Z86.2 Personal history of diseases of the blood and blood-forming organs and certain disorders involving the immune mechanism
CPT/HCPCS: 36415; 80053; 80061; 81001; 82607; 83540; 84439; 84443; 85025

== ENCOUNTER → 2023-02-27 | Outpatient (CLI) | payer OTHER ==
[~2023-02-27] MED LIST changes: -AMLO-489 PO; +AMLO1TAB22 PO; -GEMF-19 PO; +GEMF-66 PO
[2023-02-27 10:56] LABS: Potassium 3.3 mmol/L (3.5-5.1)
[2023-02-27 11:05] LABS: Albumin 2.8 g/dL (3.4-5.0); BUN/Creatinine Ratio 26.1 (10.0-20.0); Calcium 9.6 mg/dL (8.5-10.1)
[2023-02-27 11:07] LABS: Bilirubin, Total 0.5 mg/dL (0.2-1.0); Total Protein 5.8 g/dL (6.4-8.2)
== END | disposition home or self-care (01) ==
LOC: LAB 09:35
PROVIDERS: ATTEND Internal Medicine Endocrinology, Diabetes & Metabolism
DX: E03.9 Hypothyroidism, unspecified (principal); E21.0 Primary hyperparathyroidism
CPT/HCPCS: 36415; 80053; 82306; 82330; 82951; 83970; 84155; 84165; 84439; 84443

== ENCOUNTER → 2023-04-25 | Outpatient (CLI) | payer OTHER ==
[2023-04-25 11:43] LABS: Basophils # (auto) 0.1 10 ^3/uL (0-0.2); Eosinophils # (auto) 0 10 ^3/uL (0-0.8); Eosinophils % (auto) 0.2 % (0.0-7.0); Monocytes # (auto) 0.3 10 ^3/uL (0-1.3); Nucleated Red Blood Cells % 0.1 %; White Blood Cell 7.6 10^3/uL (4.4-10.8)
[2023-04-25 11:45] LABS: Basophils % (auto) 1.2 % (0.0-2.0); Hematocrit 44.2 % (36.0-46.0); Hemoglobin 14.9 g/dL (12.2-16.2); Lymphocytes # (auto) 1.5 10 ^3/uL (0.4-5.4); Mean Corpuscular Hemoglobin 34.6 pg (28.0-32.0); Mean Corpuscular Hgb Conc. 33.7 g/dL (32.0-36.0); Mean Corpuscular Volume 102.7 fL (80.0-100.0); Monocytes % (auto) 4.1 % (0.0-12.0); Neutrophils # (auto) 5.7 10 ^3/uL (1.6-8.6); Neutrophils % (auto) 74.5 % (37.0-80.0); Red Blood Cells 4.31 10^6/uL (4.0-5.20); Red Cell Distribution Width 13.7 % (11.8-14.3)
[2023-04-25 11:57] LABS: INR 1.01 (0.9-1.15); Prothrombin Time 10.6 sec (9.3-11.8)
[2023-04-25 12:54] LABS: Alanine Aminotransferase 26 U/L (7-40); Albumin 3.3 g/dL (3.2-4.8); Alkaline Phosphatase 181 U/L (46-116); Anion Gap 9.8 (5-15); Aspartate Aminotransferase 35 U/L (13-40); BUN/Creatinine Ratio 15.2 (10.0-20.0); Blood Urea Nitrogen 10 mg/dL (9-23); Calcium 10.7 mg/dL (8.5-10.1); Carbon Dioxide 28.2 mmol/L (20-30); Chloride 101 mmol/L (98-107); Glucose 104 mg/dL (74-106); Sodium 139 mmol/L (136-145)
[2023-04-25 12:55] LABS: Bilirubin, Total 0.6 mg/dL (0.2-1.0); Total Protein 5.7 g/dL (5.7-8.2)
[2023-04-25 14:46] LABS: Potassium 2.9 mmol/L (3.5-5.1)
== END | disposition home or self-care (01) ==
LOC: LAB 11:25
PROVIDERS: ATTEND Internal Medicine
DX: R73.01 Impaired fasting glucose (principal); E87.6 Hypokalemia
CPT/HCPCS: 36415; 80053; 82306; 83036; 84439; 84443; 85025; 85610

== ENCOUNTER 2023-09-29 14:13 | Inpatient (IN) | payer MEDICARE, OTHER ==
[~2023-09-29] VITALS: Ht 165.1 cm; Wt 45.7 kg
[2023-09-29 16:03] LABS: Basophils # (auto) 0.1 10 ^3/uL (0-0.2); Basophils % (auto) 0.6 % (0.0-2.0); Eosinophils # (auto) 0 10 ^3/uL (0-0.8); Eosinophils % (auto) 0.1 % (0.0-7.0); Hematocrit 37.4 % (36.0-46.0); Hemoglobin 12.2 g/dL (12.2-16.2); Lymphocytes # (auto) 1.6 10 ^3/uL (0.4-5.4); Lymphocytes % (auto) 16.2 % (10.0-50.0); Mean Corpuscular Hemoglobin 35.1 pg (28.0-32.0); Mean Corpuscular Hgb Conc. 32.7 g/dL (32.0-36.0); Mean Corpuscular Volume 107.3 fL (80.0-100.0); Monocytes # (auto) 0.4 10 ^3/uL (0-1.3); Monocytes % (auto) 4.4 % (0.0-12.0); Neutrophils # (auto) 7.7 10 ^3/uL (1.6-8.6); Neutrophils % (auto) 78.7 % (37.0-80.0); Red Blood Cells 3.49 10^6/uL (4.0-5.20); Red Cell Distribution Width 12.9 % (11.8-14.3); White Blood Cell 9.8 10^3/uL (4.4-10.8)
[2023-09-29 16:10] LABS: Chloride 110 mmol/L (98-107); Potassium 3.7 mmol/L (3.5-5.1); Sodium 141 mmol/L (136-145)
[2023-09-29 16:11] LABS: Anion Gap 5 (5-15); Calcium 9.5 mg/dL (8.5-10.1); Carbon Dioxide 26 mmol/L (20-30)
[2023-09-29 16:16] LABS: BUN/Creatinine Ratio 12.3 (10.0-20.0); Blood Urea Nitrogen 8 mg/dL (9-23); Glucose 158 mg/dL (74-106)
[2023-09-29] MEDS ORDERED: APIX5TAB4 PO (17:53)
[2023-09-29] MEDS: IOHEXOL 350 MG/ML 100ML IJ ONE ×2 (21:23)
[2023-09-29] MEDS ORDERED: ONDANSETRON HCL 4 MG/2 ML VIAL IV PRN (22:00)
[2023-09-29] MEDS ORDERED: NITROGLYCERIN 0.4 MG SL TAB SL PRN (22:00)
[2023-09-29] MEDS ORDERED: MORPHINE SULFATE INJ 2 MG/ml SYRG IV PRN (22:00)
[2023-09-29] MEDS ORDERED: DOCUSATE SOD 100 MG CAP PO PRN (22:00)
[2023-09-29 22:23] LABS: INR 1.17 (0.9-1.15); Partial Thromboplastin Time 27.4 SEC (24.5-34.5); Prothrombin Time 12.2 sec (9.3-11.8)
[2023-09-29] MEDS: HEPARIN SODIUM (PORCINE) 5000 UNITS/ML 1ML VIAL IV ONE (22:23)
[2023-09-29] MEDS: ENOXAPARIN SOD 100 MG/1 ML SYRINGE SC ONE (22:24)
[2023-09-29] MEDS: HEPARIN DRIP/D5W 100UNITS/ML 250 ML IV SCH (22:24)
[2023-09-29] MEDS: HYDROcodone-ACET 5/325MG TAB PO ONE (22:26)
[2023-09-29 23:11] VITALS: PULSE 88; RESP 18; O2SAT 98
[2023-09-30] VITALS (9 sets, daily range): BP systolic 106–128; BP diastolic 65–80; PULSE 73–92; RESP 18–20; TEMP 97.5–98.2; O2SAT 96–99
[2023-09-30] MEDS: MORPHINE SULFATE INJ 2 MG/ml SYRG IV PRN (04:06)
[2023-09-30 05:23] LABS: Basophils # (auto) 0 10 ^3/uL (0-0.2); Eosinophils # (auto) 0 10 ^3/uL (0-0.8); Hemoglobin 9.7 g/dL (12.2-16.2); Lymphocytes # (auto) 2.9 10 ^3/uL (0.4-5.4); Monocytes # (auto) 0.4 10 ^3/uL (0-1.3); Monocytes % (auto) 6.6 % (0.0-12.0); Neutrophils # (auto) 2.9 10 ^3/uL (1.6-8.6); White Blood Cell 6.3 10^3/uL (4.4-10.8)
[2023-09-30 05:26] LABS: Basophils % (auto) 0.6 % (0.0-2.0); Eosinophils % (auto) 0.2 % (0.0-7.0); Hematocrit 28.1 % (36.0-46.0); Mean Corpuscular Hemoglobin 36.6 pg (28.0-32.0); Mean Corpuscular Hgb Conc. 34.4 g/dL (32.0-36.0); Mean Corpuscular Volume 106.4 fL (80.0-100.0); Neutrophils % (auto) 46.6 % (37.0-80.0); Red Blood Cells 2.64 10^6/uL (4.0-5.20); Red Cell Distribution Width 12.7 % (11.8-14.3)
[2023-09-30 05:41] LABS: Alanine Aminotransferase 17 U/L (7-40); Alkaline Phosphatase 200 U/L (46-116); Anion Gap 4 (5-15); BUN/Creatinine Ratio 14.1 (10.0-20.0); Blood Urea Nitrogen 9 mg/dL (9-23); Calcium 8.7 mg/dL (8.7-10.4); Carbon Dioxide 26 mmol/L (20-30); Chloride 111 mmol/L (98-107); Glucose 94 mg/dL (74-106); Potassium 3.2 mmol/L (3.5-5.1); Sodium 141 mmol/L (136-145)
[2023-09-30 05:42] LABS: Albumin 2.2 g/dL (3.2-4.8); Aspartate Aminotransferase 24 U/L (13-40); Bilirubin, Total 0.4 mg/dL (0.2-1.0); Total Protein 4.2 g/dL (5.7-8.2)
[2023-09-30 05:49] LABS: INR 1.23 (0.9-1.15); Prothrombin Time 12.7 sec (9.3-11.8)
[2023-09-30 06:08] LABS: Partial Thromboplastin Time > 139.0 SEC (24.5-34.5)
[2023-09-30] MEDS: LEVOTHYROXINE SODIUM 25 MCG TAB PO SCH (06:10)
[2023-09-30] MEDS ORDERED: ALENDRONATE SODIUM 10 MG TAB PO SCH (06:45)
[2023-09-30] MEDS: HEPARIN DRIP/D5W 100UNITS/ML 250 ML IV SCH (07:30)
[2023-09-30] MEDS: NICOTINE 21MG/24 HR TOPICAL PATCH TD SCH (09:51)
[2023-09-30] MEDS: FLOVENT 110 MCG IN SCH (09:52)
[2023-09-30] MEDS: GEMFIBROZIL 600 MG TAB PO SCH (09:52)
[2023-09-30] MEDS: POTASSIUM CHL 10 Meq TABLET PO SCH (09:52)
[2023-09-30] MEDS: THIAMINE HCL 100 MG TAB PO SCH (09:52)
[2023-09-30] MEDS: FOLIC ACID 1 MG TAB PO SCH (09:52)
[2023-09-30] MEDS: PANTOPRAZOLE 40 MG TAB PO SCH (09:53)
[2023-09-30] MEDS: MAGNESIUM OXIDE 400 MG TAB PO SCH (09:53)
[2023-09-30] MEDS: MULTIPLE VITAMIN TAB PO SCH (09:53)
[2023-09-30] MEDS ORDERED: amLODIPine BESYLATE 5 MG TAB PO SCH (10:00)
[2023-09-30 12:33] LABS: Magnesium 1.4 mg/dL (1.6-2.6)
[2023-09-30] MEDS: SODIUM CHLORIDE 0.9% 1,000 ML IV SCH (12:43)
[2023-09-30] MEDS: POTASSIUM CHLORIDE 40 MEQ, LIDOCAINE 1% (LOCAL ANESTH.) 4 ML in SODIUM CHL 0.9% 250 ML IV ONE (12:44)
[2023-09-30 14:09] LABS: INR 1.18 (0.9-1.15); Prothrombin Time 12.3 sec (9.3-11.8)
[2023-09-30 17:17] LABS: Urine Bacteria NONE SEEN /hpf (None Seen); Urine Blood TRACE /uL (Negative); Urine Clarity HAZY (Clear); Urine Color Colorless (Yellow); Urine Protein, UAD Negative (Negative); Urine Specific Gravity 1.016 (1.001-1.035); Urine Urobilinogen Normal (Negative); Urine WBC 25 /hpf (0 - 5); Urine pH 7.5 (5.0-8.0)
[2023-09-30 17:26] LABS: Carcinoembryonic Antigen 15.65 ng/mL (<=5.0)
[2023-09-30 17:27] LABS: Amphetamine Screen, Urine Neg (NEGATIVE); Barbiturate Scree,Urine Neg (NEGATIVE); Benzodiazephine Screen, Urine Neg (NEGATIVE)
[2023-09-30 17:27] LABS: Folate (Folic Acid) 19.21 ng/mL (>5.38)
[2023-09-30 17:28] LABS: Cannabinoid Screen, Urine Pos (NEGATIVE); Cocaine Screen, Urine Neg (NEGATIVE); Opiate Scree,Urine Neg (NEGATIVE); Phencyclidine Screen, Urine Neg (NEGATIVE)
[2023-09-30 19:54] LABS: INR 1.17 (0.9-1.15); Partial Thromboplastin Time 52.4 SEC (24.5-34.5); Prothrombin Time 12.2 sec (9.3-11.8)
[2023-10-01] VITALS (8 sets, daily range): BP systolic 101–125; BP diastolic 63–83; PULSE 72–85; RESP 15–19; TEMP 97.7–98.3; O2SAT 97–99
[2023-10-01 01:53] LABS: INR 1.18 (0.9-1.15); Partial Thromboplastin Time 49.5 SEC (24.5-34.5); Prothrombin Time 12.3 sec (9.3-11.8)
[2023-10-01 06:47] LABS: Albumin 2.1 g/dL (3.2-4.8); Alkaline Phosphatase 173 U/L (46-116); Anion Gap 4 (5-15); Aspartate Aminotransferase 28 U/L (13-40); BUN/Creatinine Ratio 12.2 (10.0-20.0); Blood Urea Nitrogen 6 mg/dL (9-23); Calcium 8.3 mg/dL (8.5-10.1); Carbon Dioxide 22 mmol/L (20-30); Chloride 113 mmol/L (98-107); Glucose 90 mg/dL (74-106); Sodium 139 mmol/L (136-145)
[2023-10-01 06:48] LABS: Bilirubin, Total 0.5 mg/dL (0.2-1.0); Total Protein 3.9 g/dL (5.7-8.2)
[2023-10-01 06:49] LABS: Basophils # (auto) 0 10 ^3/uL (0-0.2); Basophils % (auto) 0.7 % (0.0-2.0); Eosinophils # (auto) 0 10 ^3/uL (0-0.8); Hemoglobin 8.6 g/dL (12.2-16.2); Monocytes # (auto) 0.4 10 ^3/uL (0-1.3); Neutrophils # (auto) 1.8 10 ^3/uL (1.6-8.6); Neutrophils % (auto) 37.7 % (37.0-80.0); Nucleated Red Blood Cells % 0.1 %
[2023-10-01 06:50] LABS: Eosinophils % (auto) 0.5 % (0.0-7.0); Hematocrit 25.9 % (36.0-46.0); Lymphocytes # (auto) 2.6 10 ^3/uL (0.4-5.4); Lymphocytes % (auto) 53.7 % (10.0-50.0); Mean Corpuscular Hemoglobin 35.9 pg (28.0-32.0); Mean Corpuscular Hgb Conc. 33.3 g/dL (32.0-36.0); Mean Corpuscular Volume 107.6 fL (80.0-100.0); Monocytes % (auto) 7.4 % (0.0-12.0); Red Blood Cells 2.41 10^6/uL (4.0-5.20); Red Cell Distribution Width 12.6 % (11.8-14.3); White Blood Cell 4.9 10^3/uL (4.4-10.8)
[2023-10-01 07:08] LABS: Alanine Aminotransferase < 9 U/L (7-40)
[2023-10-01 08:06] LABS: Cancer Antigen (CA) 125 27.2 U/mL (0.0-38.1)
[2023-10-01 09:38] LABS: INR 1.15 (0.9-1.15); Partial Thromboplastin Time 52.3 SEC (24.5-34.5)
[2023-10-01] MEDS: APIXABAN 5 MG TAB PO SCH (10:06)
[2023-10-01] MEDS: ERGOCALCIFEROL 50,000 UNIT(1.25MG) CAP PO SCH (10:07)
[2023-10-01] MEDS ORDERED: PANT40TA2 PO (10:07)
[2023-10-01] MEDS ORDERED: POTA1TAB61 PO (10:09)
[2023-10-01 12:06] LABS: CA 27.29 15.2 U/mL (0.0-38.6)
[2023-10-01] MEDS: GADOTERATE MEG 10 MMOL/20ml INJ (0.5MMOL/ml) IV ONE (14:25)
[2023-10-01] MEDS: ENOXAPARIN SOD 40 MG/0.4 ML SYRINGE SC SCH (22:13)
[2023-10-02 05:00] VITALS: BP 123/84; PULSE 80; RESP 17; TEMP 98.1; O2SAT 99
[2023-10-02 06:48] LABS: Chloride 111 mmol/L (98-107); Potassium 3.9 mmol/L (3.5-5.1); Sodium 138 mmol/L (136-145)
[2023-10-02 06:49] LABS: Anion Gap 6 (5-15); Calcium 8.5 mg/dL (8.7-10.4); Carbon Dioxide 21 mmol/L (20-30)
[2023-10-02 06:52] LABS: Basophils # (auto) 0 10 ^3/uL (0-0.2); Eosinophils # (auto) 0 10 ^3/uL (0-0.8); Eosinophils % (auto) 0.3 % (0.0-7.0); Hemoglobin 9.3 g/dL (12.2-16.2); Lymphocytes # (auto) 1.7 10 ^3/uL (0.4-5.4)
[2023-10-02 06:54] LABS: Glucose 152 mg/dL (74-106)
[2023-10-02 06:55] LABS: BUN/Creatinine Ratio 13.8 (10.0-20.0); Blood Urea Nitrogen 8 mg/dL (9-23)
[2023-10-02 06:56] LABS: Basophils % (auto) 0.4 % (0.0-2.0); Hematocrit 27.6 % (36.0-46.0); Lymphocytes % (auto) 34.1 % (10.0-50.0); Mean Corpuscular Hemoglobin 36.2 pg (28.0-32.0); Mean Corpuscular Hgb Conc. 33.6 g/dL (32.0-36.0); Mean Corpuscular Volume 107.7 fL (80.0-100.0); Monocytes # (auto) 0.4 10 ^3/uL (0-1.3); Monocytes % (auto) 8.7 % (0.0-12.0); Neutrophils # (auto) 2.9 10 ^3/uL (1.6-8.6); Neutrophils % (auto) 56.5 % (37.0-80.0); Nucleated Red Blood Cells % 0.1 %; Red Blood Cells 2.57 10^6/uL (4.0-5.20); Red Cell Distribution Width 12.7 % (11.8-14.3); White Blood Cell 5.1 10^3/uL (4.4-10.8)
[2023-10-02] MEDS ORDERED: NIC21P TD (07:34)
[2023-10-02] MEDS ORDERED: FOLI-119 PO (07:34)
[2023-10-02] MEDS ORDERED: ERGO1CAP23 PO (07:34)
[2023-10-02] MEDS ORDERED: APIX5TAB PO (07:34)
[2023-10-02] MEDS ORDERED: PANT40T PO (07:34)
[2023-10-02] MEDS ORDERED: THIA100T10 PO (07:34)
[2023-10-02 08:00] VITALS: PULSE 79
[2023-10-02 08:15] VITALS: BP 120/84; PULSE 77; PULSE 98; RESP 18; TEMP 98.1; O2SAT 97
[2023-10-02 09:00] VITALS: BP 99/65; PULSE 77; RESP 18; TEMP 98.1; O2SAT 97
[2023-10-02] MEDS: APIXABAN 5 MG TAB PO SCH (10:15)
[2023-10-02 10:56] VITALS: BP 120/84; PULSE 77; RESP 18; TEMP 98.1; O2SAT 97
[2023-10-08] MEDS ORDERED: APIXABAN 5 MG TAB PO SCH (10:00)
[2023-10-09] MEDS ORDERED: APIXABAN 5 MG TAB PO SCH (10:00)
== END 2023-10-02 12:23 | disposition home or self-care (01) | DRG 175 ==
LOC: ER 14:13 → TELE 22:00 → TELE-WESTW 23:15
PROVIDERS: ADMIT Internal Medicine; ATTEND Internal Medicine
DX: I26.92 Saddle embolus of pulmonary artery without acute cor pulmonale (principal); E43 Unspecified severe protein-calorie malnutrition; I82.402 Acute embolism and thrombosis of unspecified deep veins of left lower extremity; Z68.1 Body mass index [BMI] 19.9 or less, adult; M19.90 Unspecified osteoarthritis, unspecified site; I10 Essential (primary) hypertension; E78.5 Hyperlipidemia, unspecified; E03.9 Hypothyroidism, unspecified; E87.6 Hypokalemia; F17.210 Nicotine dependence, cigarettes, uncomplicated; F10.10 Alcohol abuse, uncomplicated; D53.9 Nutritional anemia, unspecified
CPT/HCPCS: 36415; 71045; 71275; 72195; 73502; 73562; 74181; 80048; 80053; 80061; 80307; 81001; 82270; 82306; 82378; 82607; 82746; 83036; 83605; 83615; 83690; 83735; 83880; 84443; 84484; 85025; 85610; 85730; 86300; 86301; 86304; 86850; 86900; 86901; 93306; 93926; G0378; J2001

== ENCOUNTER → 2023-12-12 | Outpatient (CLI) | payer OTHER ==
[~2023-12-12] MED LIST changes: +APIX5TAB PO; +APIX5TAB4 PO; -FERRTAB18 OR; -FLUT110A INH; +FOLI-119 PO; +NIC21P TD; +PANT40TA2 PO; -POLY33504 PO; +POTA-215 PO; +THIA100T10 PO; -TRAM50TA2 PO
[2023-12-12 11:58] LABS: Basophils # (auto) 0 10 ^3/uL (0-0.2); Basophils % (auto) 0.8 % (0.0-2.0); Eosinophils # (auto) 0 10 ^3/uL (0-0.8); Eosinophils % (auto) 0.4 % (0.0-7.0); Hematocrit 30.5 % (36.0-46.0); Lymphocytes # (auto) 1.3 10 ^3/uL (0.4-5.4); Lymphocytes % (auto) 32.1 % (10.0-50.0); Mean Corpuscular Hemoglobin 34.2 pg (28.0-32.0); Mean Corpuscular Hgb Conc. 32.7 g/dL (32.0-36.0); Mean Corpuscular Volume 104.6 fL (80.0-100.0); Monocytes # (auto) 0.4 10 ^3/uL (0-1.3); Monocytes % (auto) 8.4 % (0.0-12.0); Neutrophils # (auto) 2.4 10 ^3/uL (1.6-8.6); Neutrophils % (auto) 58.3 % (37.0-80.0); Nucleated Red Blood Cells % 0.1 %; Red Blood Cells 2.92 10^6/uL (4.0-5.20); Red Cell Distribution Width 15.6 % (11.8-14.3); White Blood Cell 4.2 10^3/uL (4.4-10.8)
[2023-12-12 12:13] LABS: Prothrombin Time 10.5 sec (9.3-11.8)
[2023-12-12 12:31] LABS: Albumin 2.9 g/dL (3.2-4.8); Alkaline Phosphatase 170 U/L (46-116); Anion Gap 9 (5-15); Aspartate Aminotransferase 22 U/L (13-40); BUN/Creatinine Ratio 16.9 (10.0-20.0); Blood Urea Nitrogen 11 mg/dL (9-23); Calcium 9.3 mg/dL (8.5-10.1); Carbon Dioxide 21 mmol/L (20-30); Chloride 109 mmol/L (98-107); Glucose 129 mg/dL (74-106); Sodium 139 mmol/L (136-145)
[2023-12-12 12:32] LABS: Bilirubin, Total 0.3 mg/dL (0.2-1.0); Total Protein 5.1 g/dL (5.7-8.2)
[2023-12-12 12:39] LABS: Alanine Aminotransferase < 9 U/L (7-40)
== END | disposition home or self-care (01) ==
LOC: LAB 11:25
PROVIDERS: ATTEND Internal Medicine
DX: I10 Essential (primary) hypertension (principal)
CPT/HCPCS: 36415; 80053; 84439; 84443; 85025; 85610

== ENCOUNTER → 2024-03-19 | Outpatient (CLI) | payer OTHER ==
[2024-03-19 11:27] LABS: Basophils # (auto) 0 10 ^3/uL (0-0.2); Basophils % (auto) 0.9 % (0.0-2.0); Eosinophils # (auto) 0 10 ^3/uL (0-0.8); Eosinophils % (auto) 0.7 % (0.0-7.0); Hematocrit 30.6 % (36.0-46.0); Hemoglobin 10.2 g/dL (12.2-16.2); Lymphocytes # (auto) 1.4 10 ^3/uL (0.4-5.4); Lymphocytes % (auto) 39.7 % (10.0-50.0); Mean Corpuscular Hemoglobin 33.7 pg (28.0-32.0); Mean Corpuscular Hgb Conc. 33.5 g/dL (32.0-36.0); Mean Corpuscular Volume 100.7 fL (80.0-100.0); Monocytes # (auto) 0.3 10 ^3/uL (0-1.3); Monocytes % (auto) 8.3 % (0.0-12.0); Neutrophils # (auto) 1.8 10 ^3/uL (1.6-8.6); Neutrophils % (auto) 50.4 % (37.0-80.0); Nucleated Red Blood Cells % 0.1 %; Red Blood Cells 3.04 10^6/uL (4.0-5.20); Red Cell Distribution Width 17.5 % (11.8-14.3); White Blood Cell 3.6 10^3/uL (4.4-10.8)
[2024-03-19 11:41] LABS: INR 1.16 (0.9-1.15); Prothrombin Time 12.2 sec (9.3-11.8)
[2024-03-19 11:55] LABS: Alanine Aminotransferase 13 U/L (7-40); Albumin 3.1 g/dL (3.2-4.8); Alkaline Phosphatase 288 U/L (46-116); Anion Gap 10 (5-15); Aspartate Aminotransferase 23 U/L (13-40); BUN/Creatinine Ratio 13.6 (10.0-20.0); Bilirubin, Total 0.7 mg/dL (0.2-1.0); Blood Urea Nitrogen 9 mg/dL (9-23); Calcium 9.8 mg/dL (8.7-10.4); Carbon Dioxide 24 mmol/L (20-30); Chloride 110 mmol/L (98-107); Glucose 161 mg/dL (74-106); Lipase 15 U/L (12-53); Potassium 3.4 mmol/L (3.5-5.1); Sodium 144 mmol/L (136-145); Total Protein 5.4 g/dL (5.7-8.2)
[2024-03-19 12:07] LABS: % Iron Saturation 35.6 % (15-50)
== END | disposition home or self-care (01) ==
LOC: LAB 10:57
PROVIDERS: ATTEND Internal Medicine Gastroenterology
DX: R19.7 Diarrhea, unspecified (principal)
CPT/HCPCS: 36415; 80053; 80202; 82746; 83540; 83550; 83690; 85025; 85610; 86301

== ENCOUNTER → 2024-04-19 | Outpatient (CLI) | payer OTHER ==
[2024-04-19 10:26] LABS: Basophils # (auto) 0 10 ^3/uL (0-0.2); Basophils % (auto) 0.4 % (0.0-2.0); Eosinophils # (auto) 0 10 ^3/uL (0-0.8); Eosinophils % (auto) 0.3 % (0.0-7.0); Hematocrit 29.7 % (36.0-46.0); Hemoglobin 10.1 g/dL (12.2-16.2); Lymphocytes # (auto) 1.3 10 ^3/uL (0.4-5.4); Lymphocytes % (auto) 31.7 % (10.0-50.0); Mean Corpuscular Hemoglobin 35.9 pg (28.0-32.0); Mean Corpuscular Volume 105.4 fL (80.0-100.0); Monocytes # (auto) 0.3 10 ^3/uL (0-1.3); Monocytes % (auto) 7.1 % (0.0-12.0); Neutrophils # (auto) 2.5 10 ^3/uL (1.6-8.6); Neutrophils % (auto) 60.5 % (37.0-80.0); Nucleated Red Blood Cells % 0.1 %; Platelet Count (auto) 211 10^3/uL (140-450); Red Blood Cells 2.82 10^6/uL (4.0-5.20); Red Cell Distribution Width 14.5 % (11.8-14.3); White Blood Cell 4.2 10^3/uL (4.4-10.8)
[2024-04-19 10:56] LABS: % Iron Saturation 85.9 % (15-50)
[2024-04-19 10:58] LABS: Alanine Aminotransferase 18 U/L (7-40); Albumin 2.8 g/dL (3.2-4.8); Alkaline Phosphatase 245 U/L (46-116); Anion Gap 7 (5-15); Aspartate Aminotransferase 34 U/L (13-40); BUN/Creatinine Ratio 12.7 (10.0-20.0); Bilirubin, Total 0.4 mg/dL (0.2-1.0); Blood Urea Nitrogen 9 mg/dL (9-23); Calcium 9.4 mg/dL (8.7-10.4); Carbon Dioxide 26 mmol/L (20-30); Chloride 107 mmol/L (98-107); Glucose 128 mg/dL (74-106); Potassium 3.3 mmol/L (3.5-5.1); Sodium 140 mmol/L (136-145); Total Protein 5.1 g/dL (5.7-8.2)
[2024-04-19 11:09] LABS: INR 1.15 (0.9-1.15); Prothrombin Time 12.1 sec (9.3-11.8)
[2024-04-19 11:24] LABS: Wright Stain Ready for Review
[2024-04-20 09:06] LABS: Immunoglobulin A 241 mg/dL (87-352); Immunoglobulin G, Serum 881 mg/dL (586-1602); Immunoglobulin M 147 mg/dL (26-217)
[2024-04-20 10:32] LABS: Albumin 2.7 g/dL (2.9-4.4); Alpha-1-Globulin 0.2 g/dL (0.0-0.4); Alpha-2-Globulin 0.5 g/dL (0.4-1.0); Globulin Total 2.3 g/dL (2.2-3.9)
== END | disposition home or self-care (01) ==
LOC: LAB 10:03
PROVIDERS: ATTEND Internal Medicine
DX: I10 Essential (primary) hypertension (principal); D64.9 Anemia, unspecified; R61 Generalized hyperhidrosis; M89.9 Disorder of bone, unspecified; E83.51 Hypocalcemia
CPT/HCPCS: 36415; 80053; 82330; 82784; 83540; 83550; 83615; 84155; 84156; 84165; 84166; 85025; 85610; 86334

== ENCOUNTER → 2024-05-11 | Outpatient (CLI) | payer OTHER, MEDICARE ==
[2024-05-11 12:20] LABS: Basophils # (auto) 0 10 ^3/uL (0-0.2); Eosinophils # (auto) 0 10 ^3/uL (0-0.8); Eosinophils % (auto) 0.2 % (0.0-7.0); Hematocrit 28.5 % (36.0-46.0); Hemoglobin 9.7 g/dL (12.2-16.2); Monocytes # (auto) 0.3 10 ^3/uL (0-1.3); Neutrophils # (auto) 2.3 10 ^3/uL (1.6-8.6); Nucleated Red Blood Cells % 0.1 %; Red Cell Distribution Width 13.9 % (11.8-14.3); White Blood Cell 3.9 10^3/uL (4.4-10.8)
[2024-05-11 12:22] LABS: Basophils % (auto) 0.9 % (0.0-2.0); Lymphocytes # (auto) 1.3 10 ^3/uL (0.4-5.4); Mean Corpuscular Hemoglobin 36.4 pg (28.0-32.0); Mean Corpuscular Hgb Conc. 34.1 g/dL (32.0-36.0); Mean Corpuscular Volume 106.6 fL (80.0-100.0); Monocytes % (auto) 7.4 % (0.0-12.0); Neutrophils % (auto) 59.5 % (37.0-80.0); Platelet Count (auto) 255 10^3/uL (140-450); Red Blood Cells 2.68 10^6/uL (4.0-5.20)
[2024-05-11 12:57] LABS: Alanine Aminotransferase 24 U/L (7-40); Alkaline Phosphatase 295 U/L (46-116); Anion Gap 7 (5-15); Aspartate Aminotransferase 43 U/L (13-40); BUN/Creatinine Ratio 8.6 (10.0-20.0); Blood Urea Nitrogen 6 mg/dL (9-23); Calcium 8.9 mg/dL (8.7-10.4); Carbon Dioxide 22 mmol/L (20-30); Chloride 112 mmol/L (98-107); Glucose 110 mg/dL (74-106); Potassium 3.9 mmol/L (3.5-5.1); Sodium 141 mmol/L (136-145)
[2024-05-11 12:58] LABS: Bilirubin, Total 0.4 mg/dL (0.2-1.0); Total Protein 5.3 g/dL (5.7-8.2)
[2024-05-12 08:06] LABS: Complement C3 57 mg/dL (82-167); Rheumatoid Arthritis Factor 10.9 IU/mL (<14.0); Thyroid Peroxidase (TPO) Ab 14 IU/mL (0-34)
[2024-05-12 11:07] LABS: Anti-Nuclear Antibody Direct Negative (Negative); Anti-dsDNA Antibody <1 IU/mL (0-9); Antiscleroderma-70 Antibody <0.2 AI (0.0-0.9); RNP Antibody <0.2 AI (0.0-0.9); Sjogren's Anti-SS-A Antibody <0.2 AI (0.0-0.9); Sjogren's Anti-SS-B Antibody <0.2 AI (0.0-0.9); Smith Antibody <0.2 AI (0.0-0.9)
[2024-05-13 13:07] LABS: Anti-Striated Muscle Antibody Negative (Neg:<1:100)
[2024-05-13 14:08] LABS: Actin (Smooth Muscle) Antibody 3 Units (0-19); Mitochondrial (M2) Antibody <20.0 Units (0.0-20.0)
[2024-05-14 12:07] LABS: Antithrombin III Antigen 121 % (72-124); Protein S-Functional 107 % (63-140)
[2024-05-14 21:06] LABS: Anticardiolipin IgG Antibody <9 GPL U/mL (0-14); Anticardiolipin IgM Antibody <9 MPL U/mL (0-12)
== END | disposition home or self-care (01) ==
LOC: LAB 11:19
PROVIDERS: ATTEND Internal Medicine
DX: I26.09 Other pulmonary embolism with acute cor pulmonale (principal); R22.2 Localized swelling, mass and lump, trunk
CPT/HCPCS: 36415; 80053; 81241; 83615; 85025; 85301; 85302; 85306; 86147; 86160; 86225; 86235; 86376; 86431

== ENCOUNTER → 2024-06-14 | Outpatient (CLI) | payer OTHER ==
[~2024-06-14] MED LIST changes: +BUPIVACAINE HCL 0.25% P/F 10 ML VIAL ONE; +LIDOCAINE 2%HCL (LOCAL ANESTH.) INJ 10ml MDV ONE
[2024-06-14 11:37] LABS: Basophils # (auto) 0 10 ^3/uL (0-0.2); Eosinophils # (auto) 0 10 ^3/uL (0-0.8); Lymphocytes # (auto) 1.5 10 ^3/uL (0.4-5.4); Monocytes # (auto) 0.3 10 ^3/uL (0-1.3)
[2024-06-14 11:41] LABS: Basophils % (auto) 0.8 % (0.0-2.0); Eosinophils % (auto) 0.5 % (0.0-7.0); Hematocrit 30.3 % (36.0-46.0); Hemoglobin 10.3 g/dL (12.2-16.2); Lymphocytes % (auto) 38.5 % (10.0-50.0); Mean Corpuscular Hemoglobin 35.9 pg (28.0-32.0); Mean Corpuscular Hgb Conc. 33.9 g/dL (32.0-36.0); Mean Corpuscular Volume 106.1 fL (80.0-100.0); Monocytes % (auto) 8.1 % (0.0-12.0); Neutrophils # (auto) 2.1 10 ^3/uL (1.6-8.6); Neutrophils % (auto) 52.1 % (37.0-80.0); Platelet Count (auto) 235 10^3/uL (140-450); Red Blood Cells 2.85 10^6/uL (4.0-5.20); Red Cell Distribution Width 13.6 % (11.8-14.3)
[2024-06-14 11:54] LABS: INR 1.15 (0.9-1.15); Partial Thromboplastin Time 25.9 SEC (24.5-34.5); Prothrombin Time 12.1 sec (9.3-11.8)
== END | disposition home or self-care (01) ==
LOC: LAB 11:05
PROVIDERS: ATTEND Internal Medicine
DX: M89.9 Disorder of bone, unspecified (principal)
CPT/HCPCS: 36415; 85025; 85610; 85730

== ENCOUNTER → 2024-06-15 | Outpatient (CLI) | payer OTHER ==
[~2024-06-15] MED LIST changes: -BUPIVACAINE HCL 0.25% P/F 10 ML VIAL ONE; -LIDOCAINE 2%HCL (LOCAL ANESTH.) INJ 10ml MDV ONE
--- NOTE | 2024-06-15 12:13 | DVH ---
EXAM: CT CT GUIDANCE FOR NEEDLE PLACEME bone marrow biopsy Axial CT images were obtained of the pelvis to localize the posterior superior iliac spine for bone m arrow aspiration and biopsy. Please see procedure note for details. IMPRESSION: 1. CT guidance provided for bone marrow biopsy and aspiration.
--- NOTE | 2024-06-15 12:17 | DVH ---
Trouble: CT-guided bone marrow aspiration and biopsy we left posterior superior iliac spine. History: Abnormal blood cell count. Consent: Informed written consent was obtained from the patient and the guardian. Anesthesia: 1% lidocaine local. 0.5% bullet begin on the periosteum. Intravenous fentanyl and Versed for conscious sedation administered and monitored by the interventional radiology nurse. Total consc ious sedation time was 45 minutes. Vital signs were continuously monitored during conscious sedation. Technique: With the patient prone on the CT table axial CT images the pelvis were obtained. The left posterior superior iliac spine was localized. Overlying skin was prepped and draped in the usual leonid rile fashion. 1% lidocaine was applied to the skin and soft tissue. 0.5% bupivacaine was applied to t he periosteum of the left posterior superior iliac spine. A 14 gauge arrow needle was then advanced i nto the left posterior superior iliac spine using a drill. Approximately 12 cc of bone marrow aspirat e was obtained. Core biopsy of the bone marrow was obtained. The needle was removed. Patient tolera isidoro procedure well without any immediate complications. IMPRESSION: 1. Successful CT-guided bone marrow aspiration and biopsy via left posterior superior iliac spine. Hi stopathology results pending.
== END | disposition home or self-care (01) ==
LOC: CT 10:02
PROVIDERS: ATTEND Internal Medicine
DX: R22.2 Localized swelling, mass and lump, trunk (principal); Z98.51 Tubal ligation status; Z86.718 Personal history of other venous thrombosis and embolism; Z87.891 Personal history of nicotine dependence; Z80.8 Family history of malignant neoplasm of other organs or systems
CPT/HCPCS: 10005; 38222; 72192; 77012

== ENCOUNTER 2024-09-05 02:47 | Inpatient (IN) | payer OTHER, MEDICAID ==
[~2024-09-05] VITALS: Ht 157.5 cm; Wt 57.3 kg
[2024-09-05] VITALS (9 sets, daily range): BP systolic 82; BP diastolic 42; PULSE 58–67; RESP 14–18; O2SAT 95–100
--- NOTE | 2024-09-05 04:07 | ED.PDOC ---
History of Present Illness HPI Comments 69-year-old female came to ER via EMS due to bilateral lower extremity swelling. Per EMS, patient was picked up at home, has history of hypertension and Alzheimer's dementia. Was noted with a past few days to be progressively getting weak, lethargic and bipedal edema. Noted also unexplained weight loss. Patient is very emaciated. Patient recently discharged at [facility]. On scene patient hypotensive at 75/50 mmHg with a blood sugar of 120. 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 Allergies: Coded Allergies: NO KNOWN ALLERGIES (Unverified , 06/30/17) Home Meds Active Scripts Thiamine Hcl (VITAMIN B-1) 100 Mg Tb, 100 MG PO DAILY for 30 Days, #30 TAB Prov:[facility] PEREZ 10/02/23 Pantoprazole Sodium Sesquihydr (Pantoprazole Sodium) 40 Mg Tab, 40 MG PO DAILY for 30 Days, #30 TAB Prov:[facility] PEREZ 10/02/23 Nicotine (Nicoderm 21MG/24HR) 1 Patch Ph, 1 PATCH TD DAILY for 30 Days, #30 PATCH Prov:[facility] PEREZ [facility] 10/02/23 Folic Acid (Folic Acid) 1 Mg Tab, 1 MG PO DAILY for 30 Days, #30 TAB Prov:[facility] PEREZ [facility] 10/02/23 Ergocalciferol (VITAMIN D 36244 UNIT) 50,000 [place], [address] UNIT PO Q7D for 10 Days, #30 CAP Prov:[facility] PEREZ 10/02/23 Apixaban Base (ELIQUIS) 5 Mg Tab, 5 MG PO BID for 30 Days, #60 TAB Take apixaban 10 mg p.o. twice daily for 7 days. Afterwards apixaban 5 mg p.o. twice daily for at least 3 months Prov:[facility]IS[facility] PEREZ 10/02/23 Apixaban Base (Eliquis Starter Pack) 5 Mg Tab, 10 MG PO BID for 7 Days, #28 TAB Prov:MATTHIAS JEAN MD 09/29/23 Levothyroxine Sodium (Levothyroxine Sodium) 25 Mcg Tab, 75 MCG PO QAM for 30 Days, #30 TAB Prov:JUANJO BAEZ MD 08/15/22 Reported Medications Potassium Chloride (Klor-Con M10) 10 Meq Tab, 1 TAB PO DAILY 10/01/23 Pantoprazole Sodium Sesquihydr (Protonix) 40 Mg Tab, 1 TAB PO DAILY 10/01/23 Magnesium Oxide (Magnesium Oxide) 400 Mg Tab, 1 TAB PO DAILYPRN 08/08/22 Alendronate Sodium (Alendronate Sodium) 70 Mg Tab, 1 TAB PO QWEEKLY 08/08/22 Gemfibrozil (Gemfibrozil) 600 Mg Tab, 600 MG PO BID for 30 Days 06/30/17 Amlodipine Besylate (Amlodipine Besylate) 5 Mg Tab, 5 MG PO DAILY 01/26/13 Information Source: Emergency Med Personnel Mode of Arrival: EMS Severity: Moderate Timing: Days Duration: Since onset Review of Systems REVIEW OF SYSTEMS: No fever, no chills, or fatigue HEENT: No sore throat, no earache, no congestion, no neck pain. Cardiac: No chest pain. No palpitations. Lungs: No shortness of breath, no cough. GI: No nausea, no vomiting, no diarrhea, no constipation, no abdominal pain : No dysuria, frequency, or urgency. No hematuria. Musculoskeletal: No joint pain , no joint swelling, no extremity edema. Skin: No rash, no itching. Neuro: No headache, no dizziness, no weakness (+) Unable to complete due to patients dementia Vital Signs Vital Signs Date Time Temp Pulse Resp B/P (MAP) Pulse Ox O2 Delivery O2 Flow Rate FiO2 09/05/24 03:31 98.2 84 20 75/52 (60) 99 Physical Exam General: Awake, alert and oriented. No acute distress. Skin: Skin in warm, dry and intact. Appropriate color for ethnicity. Nailbeds pink with no cyanosis. HEENT: The head is normocephalic and atraumatic. Conjunctivae are clear without exudates or hemorrhage. Sclera is non-icteric. EOM are intact. No signs of nystagmus. Eyelids are normal in appearance without swelling or lesions. Oral mucosa is pink and moist Neck: The neck is supple with normal range of motion. No JVD. Cardiac: Heart rate and rhythm are normal. No murmurs, gallops, or rubs are auscultated. Respiratory: No signs of respiratory distress. Lung sounds are clear in all lobes bilaterally without rales, ronchi, or wheezes. Abdominal: Abdomen is soft, non-tender without distention. Bowel sounds are present and normoactive in all four quadrants. Extremities: Upper and lower extremities are atraumatic in appearance without deformity or edema. Neurological: The patient is awake, alert and oriented to person, place, and time with normal speech. Speech is clear. There is no facial asymmetry. Psychiatric: Appropriate mood and affect. Good judgement and insight. No visual or auditory hallucinations. Past Medical History PAST MEDICAL HISTORY: Alzheimer, Dementia, High Lipids, HTN Surgical History: Pt Confused LINE SUPPLY History: Pt Confused Family History Family History: Pt Confused Social History Smoker: Pt Confused Alcohol: Pt Confused Drugs: Pt Confused Lives In: Home Was a procedure done? Was a procedure done?: No Differential Dx Considerations may include: Anemia, electrolyte imbalance, malnutrition, failure to thrive, sepsis, pneumonia, UTI X-Ray, Labs, Meds, VS Vital Signs Date Time Temp Pulse Resp B/P (MAP) Pulse Ox O2 Delivery O2 Flow Rate FiO2 09/05/24 03:31 98.2 84 20 75/52 (60) 99 Lab Test 09/05/24 03:47 09/05/24 03:30 Range/Units Ammonia 23 11-32 umol/L Creatine Kinase 416 H 34-145 U/L White Blood Count 4.3 L 4.4-10.8 10^3/uL Red Blood Count 2.30 L 4.0-5.20 10^6/uL Hemoglobin 8.7 L 12.2-16.2 g/dL Hematocrit 25.5 L 36.0-46.0 % Mean Corpuscular Volume 110.7 H 80.0-100.0 fL Mean Corpuscular Hemoglobin 37.6 H 28.0-32.0 pg Mean Corpuscular Hemoglobin Concent 34.0 32.0-36.0 g/dL Red Cell Distribution Width 15.4 H 11.8-14.3 % Platelet Count 127 L 140-450 10^3/uL Mean Platelet Volume 10.7 6.9-10.8 fL Neutrophils (%) (Auto) 80.6 H 37.0-80.0 % Lymphocytes (%) (Auto) 14.9 10.0-50.0 % Monocytes (%) (Auto) 3.3 0.0-12.0 % Eosinophils (%) (Auto) 0.4 0.0-7.0 % Basophils (%) (Auto) 0.8 0.0-2.0 % Neutrophils # (Auto) 3.5 1.6-8.6 10 ^3/uL Lymphocytes # (Auto) 0.6 0.4-5.4 10 ^3/uL Monocytes # (Auto) 0.1 0-1.3 10 ^3/uL Eosinophils # (Auto) 0 0-0.8 10 ^3/uL Basophils # (Auto) 0 0-0.2 10 ^3/uL Nucleated Red Blood Cells 1.7 % Platelet Estimate Pending Prothrombin Time 14.4 H 9.3-11.8 sec Prothrombin Time INR 1.36 H 0.9-1.15 Sodium Level 142 136-145 mmol/L Potassium Level 3.9 3.5-5.1 mmol/L Chloride Level 107 98-107 mmol/L Carbon Dioxide Level 23 20-31 mmol/L Anion Gap 12 5-15 Blood Urea Nitrogen 28 H 9-23 mg/dL Creatinine 2.70 H 0.550-1.02 mg/dL Glomerular Filtration Rate Calc 18 >90 mL/min BUN/Creatinine Ratio 10.4 10.0-20.0 Serum Glucose 109 H 74-106 mg/dL Calcium Level 7.9 L 8.7-10.4 mg/dL Total Bilirubin 1.5 H 0.2-1.0 mg/dL Aspartate Amino Transferase (AST) 105 H 13-40 U/L Alanine Aminotransferase (ALT) 57 H 7-40 U/L Alkaline Phosphatase 610 H 46-116 U/L Troponin I High Sensitivity 11 </=34 ng/L B-Type Natriuretic Peptide 87.08 0-100 pg/mL Total Protein 4.1 L 5.7-8.2 g/dL Albumin 1.9 L 3.2-4.8 g/dL Time of 1ST Reevaluation: 03:57 Reevaluation 1ST: Unchanged Patient Education/Counseling: Other (Patient has dementia) Family Education/Counseling: No Family Present Departure 1 Departure Time of Disposition: 05:25 Impression: Primary Impression: Alzheimer's dementia Additional Impressions: Hypoalbuminemia Hepatic failure Renal failure Pulmonary edema Ascites Anasarca Disposition: ADMITTED INPATIENT Condition: Guarded Comments 69-year-old female who presented to the emergency department with EMS. Patient has a history of Alzheimer's, appears cachetic severe lower extremity edema. She lives alone with her . Unable to care for herself. Chest x-ray showing mild pulmonary edema. She has large hematoma over her left lower extremity and apparent acute hepatic failure. Her LFTs are elevated. Her albumin is 1.9. She also has acute renal failure with a GFR of 18. Patient admitted for further treatment, evaluation and monitoring. CT head, chest abdomen and pelvis pending. Coagulation studies pending. Patient administered Lasix and antibiotics in the ED. Critical Care Note Critical Care Time?: Yes (35 min-critical care time only) Critical care comment: Hypotension Stability Stability form required: No I personally scribed for STACY LUA MD ([email or web address]) on 09/05/24 at 04:07. Electronically submitted by Abhishek Gonsalez ([email or web address]). STACY LUA MD Sep 05, 2024 04:07
[2024-09-05 04:32] LABS: Basophils # (auto) 0 10 ^3/uL (0-0.2); Eosinophils # (auto) 0 10 ^3/uL (0-0.8); Hemoglobin 8.7 g/dL (12.2-16.2); Lymphocytes # (auto) 0.6 10 ^3/uL (0.4-5.4)
[2024-09-05 04:37] LABS: Basophils % (auto) 0.8 % (0.0-2.0); Eosinophils % (auto) 0.4 % (0.0-7.0); Hematocrit 25.5 % (36.0-46.0); Lymphocytes % (auto) 14.9 % (10.0-50.0); Mean Corpuscular Hemoglobin 37.6 pg (28.0-32.0); Mean Corpuscular Volume 110.7 fL (80.0-100.0); Monocytes # (auto) 0.1 10 ^3/uL (0-1.3); Monocytes % (auto) 3.3 % (0.0-12.0); Neutrophils # (auto) 3.5 10 ^3/uL (1.6-8.6); Neutrophils % (auto) 80.6 % (37.0-80.0); Nucleated Red Blood Cells % 1.7 %; Platelet Count (auto) 127 10^3/uL (140-450); Red Cell Distribution Width 15.4 % (11.8-14.3); White Blood Cell 4.3 10^3/uL (4.4-10.8)
[2024-09-05 04:49] LABS: Anion Gap 12 (5-15); BUN/Creatinine Ratio 10.4 (10.0-20.0); Carbon Dioxide 23 mmol/L (20-31); Potassium 3.9 mmol/L (3.5-5.1); Sodium 142 mmol/L (136-145)
[2024-09-05 04:51] LABS: Alanine Aminotransferase 57 U/L (7-40); Albumin 1.9 g/dL (3.2-4.8); Alkaline Phosphatase 610 U/L (46-116); Aspartate Aminotransferase 105 U/L (13-40); Bilirubin, Total 1.5 mg/dL (0.2-1.0); Blood Urea Nitrogen 28 mg/dL (9-23); Calcium 7.9 mg/dL (8.7-10.4); Chloride 107 mmol/L (98-107); Glucose 109 mg/dL (74-106); Total Protein 4.1 g/dL (5.7-8.2)
--- NOTE | 2024-09-05 05:14 | DVH ---
EXAM: XY CHEST XRAY 1 VIEW Indication: Rule out pulmonary edema, shortness of breath Technique: Single frontal view of the chest was obtained Comparison: XY CHEST PORTABLE on DOS: 09/30/23, CXRP on DOS: 08/08/22, CHEST PORTABLE on DOS: 08/08/22 FINDINGS: Lines and Tubes: None Lungs: Mild pulmonary edema. Ill-defined right lower lung opacity. Pleura: No effusion. No pneumothorax. Cardiomediastinal contours: Unremarkable Bones: No acute osseous abnormality. IMPRESSION: Mild pulmonary edema. Ill-defined right lower lung opacity which may reflect atelectasis or developin g pneumonia.
--- NOTE | 2024-09-05 05:15 | DVH ---
CLINICAL INDICATION: Pain TECHNIQUE: 4 radiographic views of the left tibia/ fibula were obtained. Comparison: None FINDINGS/IMPRESSION: There is no evidence of acute fracture or dislocation. Postsurgical changes are visualized in the proximal tibia.
[2024-09-05] MEDS: FUROSEMIDE 20 MG/2 ML VIAL IV ONE (05:30)
--- NOTE | 2024-09-05 05:38 | DVH ---
EXAM: CT HEAD WITHOUT CONTRAST INDICATION: ams TECHNIQUE: CT of the head without intravenous contrast. Radiation Dose Information: CT Dose: CTDI volume is 25 mGy. Dose-length product is 250 mGy*cm The dose indicators for CT are the volume Computed Tomography (CT) Dose Index (CTDIvol) and the Dose Length Product (DLP), and are measured in units of mGy and mGy-cm, respectively. These indicators are not patient dose, but values generated from the CT scanner acquisition factors. The report includes radiation exposure data for exposures received during this examination. COMPARISON: None FINDINGS: There is no evidence of acute intracranial hemorrhage, extra-axial collection, mass effect, midline s hift, herniation or hydrocephalus. The ventricles, sulci and cisterns are age appropriate. The erazo-white differentiation is intact. Patchy periventricular and subcortical white matter hypoattenuation is nonspecific but may be related to small vessel ischemic disease. The visualized paranasal sinuses and mastoid air cells are clear. The surrounding soft tissues and osseous structures are unremarkable. IMPRESSION: No acute intracranial abnormality.
[2024-09-05 05:40] LABS: INR 1.36 (0.9-1.15); Prothrombin Time 14.4 sec (9.3-11.8)
--- NOTE | 2024-09-05 05:48 | DVH ---
History: failure to thrive Comparison Study: None available at time of dictation. TECHNIQUE: Multidetector CT of the chest, abdomen and pelvis was performed from lower neck to pubic s ymphysis without the use of intravenous contrast. Axial, coronal and sagittal multiplanar reformats w ere performed by the technologist on a separate workstation. Radiation Dose : CTDIvol 5.8 mGy, DLP 403.3 mGy*cm. FINDINGS: Evaluation is limited due to streak artifact from upper extremities. Lower neck: Normal thyroid. Lungs: No focal consolidation, suspicious pulmonary nodules or pulmonary masses. Pulmonary emphysema. Heart/Vascular Structures: Normal heart size. Calcifications at the aortic root. Moderate coronary ar aubrie atherosclerotic vascular disease. Lymph Nodes: No adenopathy. Pleura: Small bilateral pleural effusions with adjacent atelectasis. Liver: Diffuse hypoattenuation of the liver suggestive of fatty infiltration. Non-contrast appearance of liver. Gallbladder and Biliary Tree: Unremarkable. Spleen: Unremarkable. Pancreas: Unremarkable. Adrenal Glands: Unremarkable. Kidneys: Nonobstructive left renal calcification measuring 5 mm. Bladder: Unremarkable. Bowel: Diffuse colonic wall thickening. The appendix is not visualized; however, no secondary finding s of acute appendicitis identified. Peritoneum: No pneumoperitoneum. Large volume ascites. Lymphadenopathy: No enlarged lymph nodes. Vasculature: The visualized abdominal aorta is normal in size and caliber. Evaluation of the vascular structures is limited due to lack of intravenous contrast. Severe atherosclerotic vascular disease o f the abdominal aorta and its branches. Pelvic Organs: Unremarkable. Musculoskeletal: No acute osseous abnormality. Dextroscoliosis. Status post left hip arthroplasty. Soft tissues: Unremarkable. IMPRESSION: Severe hepatic steatosis. Large volume ascites. Small bilateral pleural effusions and bibasilar atelectasis. Findings suggestive of colitis. All CT scans at this medical facility are performed using dose modulation techniques as appropriate t o a performed exam including the following: Automated exposure control was utilized; adjustment of th e MA and/or KV according to patient size; and use of iterative reconstruction technique.
[2024-09-05] MEDS: CEFEPIME 1GM/ 50ML 50 ML IV ONE (06:23)
[2024-09-05 06:53] LABS: Macrocytosis Moderate
[2024-09-05 06:54] LABS: Large Platelets FEW; Platelet Estimate Decrea
[2024-09-05 06:55] LABS: Target Cell FEW
--- NOTE | 2024-09-05 08:07 | DVH ---
CLINICAL HISTORY: Bilateral lower extremity edema. COMPARISON: BLDVT on DOS: 08/08/22 TECHNIQUE: Bilateral lower extremity venous duplex exam was performed. Grayscale, color flow, and spe ctral waveform analysis was performed. The deep veins of the lower extremity were evaluated for compr ession, phasic flow, and augmentation. FINDINGS: There is acute DVT in the right lower extremity involving the proximal to mid femoral vein. The right common femoral and popliteal veins are patent with normal spontaneous phasic flow, yaquelin sibility, and augmentation. There is also flow demonstrated at the trifurcation in the calf. No flow demonstrated in the posterior tibial vein. Acute occlusive DVT of the left lower extremity at proximal aspect of the femoral vein, incompletely occlusive, with some flow visualized at the level of the DVT. The left common femoral and popliteal v eins are patent with normal spontaneous phasic flow, compressibility, and augmentation. There is flow demonstrated at the trifurcation. Left posterior tibial vein not visualized. Incidental note is made of a cystic structure in the popliteal fossa measuring up to 5.8 x 2.3 x 4.4 cm, likely popliteal cyst IMPRESSION: 1. Acute DVT in the right lower extremity involving the proximal to mid femoral vein. 2. Acute DVT in the left lower extremity involving the proximal femoral vein. Findings were reported to Dr. Liz by the electronic masking system operator at approximately 7:40 a.m..
[2024-09-05] MEDS ORDERED: ALBUTEROL SULF 2.5 MG/0.5ML(0.5%) NEB SOLN NEB PRN (11:00)
[2024-09-05] MEDS ORDERED: HEPARIN SODIUM (PORCINE) 5000 UNITS/ML 1ML VIAL IV ONE ×2 (11:00)
[2024-09-05] MEDS ORDERED: HEPARIN DRIP/D5W 100UNITS/ML 250 ML IV SCH (11:00)
[2024-09-05] MEDS ORDERED: NITROGLYCERIN 0.4 MG SL TAB SL PRN (11:30)
[2024-09-05] MEDS: SODIUM CHLORIDE 0.9% 2,000 ML IV ONE (11:30)
[2024-09-05] MEDS ORDERED: ACETAMINOPHEN 325 MG TAB PO PRN (11:30)
[2024-09-05] MEDS: SODIUM CHLORIDE 0.9% 1,000 ML IV SCH (11:30)
[2024-09-05] MEDS ORDERED: MORPHINE SULFATE INJ 2 MG/ml SYRG IV PRN (11:30)
[2024-09-05] MEDS ORDERED: ONDANSETRON HCL 4 MG/2 ML VIAL IV PRN (11:30)
[2024-09-05] MEDS: ERGOCALCIFEROL 50,000 UNIT(1.25MG) CAP PO SCH (11:45)
[2024-09-05] MEDS ORDERED: PATIENTS OWN MEDICATION (Alendronate Sodium 1 TAB) PO SCH (11:45)
--- NOTE | 2024-09-05 12:14 | DVH ---
INDICATION: Elevated liver enzyme TECHNIQUE: Multiple real-time sonographic images of the abdomen were obtained. COMPARISON: CT 09/05/2024 FINDINGS: Liver is increased in echogenicity. The liver measures 16.2 cm. No intrahepatic biliary ductal dilatation is noted. The gallbladder wall is surgically absent. The common duct measures 0.9 cm and likely within normal limits status post cholecystectomy. The right kidney measures 9.0 cm. No hydronephrosis. The left kidney measures 7.2 cm. No hydronephros is. Bilateral renal cysts are noted measuring up to 2.1 cm. The spleen measures 6.9 cm, within normal limits. The echogenicity is within normal limits. The pancreas is not well visualized due to obscuration from bowel gas. The visualized portions of the IVC and aorta are grossly unremarkable. Moderate ascites is noted. Bilateral pleural effusions are noted. IMPRESSION: 1. Hepatic steatosis. 2. Cholecystectomy. 3. Moderate volume ascites. 4. Bilateral pleural effusions.
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
[2024-09-05 12:51] LABS: % Iron Saturation 57.4 % (15-50)
[2024-09-05 13:03] LABS: INR 1.36 (0.9-1.15); Prothrombin Time 14.4 sec (9.3-11.8)
[2024-09-05 13:04] LABS: Partial Thromboplastin Time 35.3 SEC (24.5-34.5)
[2024-09-05] MEDS: HEPARIN DRIP/D5W 100UNITS/ML 250 ML IV SCH (13:50)
[2024-09-05] MEDS: IPRATROPIUM BROM 0.5 MG/2.5ML INH SOL NEB SCH (14:05)
[2024-09-05] MEDS: ALBUTEROL SULF 2.5 MG/0.5ML(0.5%) NEB SOLN NEB SCH (14:05)
[2024-09-05 14:29] LABS: Basophils # (auto) 0 10 ^3/uL (0-0.2); Eosinophils # (auto) 0 10 ^3/uL (0-0.8); Hemoglobin 8.5 g/dL (12.2-16.2); Lymphocytes # (auto) 0.5 10 ^3/uL (0.4-5.4); Monocytes # (auto) 0.1 10 ^3/uL (0-1.3); Red Blood Cells 2.33 10^6/uL (4.0-5.20)
[2024-09-05 14:33] LABS: Basophils % (auto) 0.6 % (0.0-2.0); Eosinophils % (auto) 0.5 % (0.0-7.0); Hematocrit 26.1 % (36.0-46.0); Lymphocytes % (auto) 14.8 % (10.0-50.0); Mean Corpuscular Hemoglobin 36.8 pg (28.0-32.0); Mean Corpuscular Hgb Conc. 32.7 g/dL (32.0-36.0); Mean Corpuscular Volume 112.4 fL (80.0-100.0); Monocytes % (auto) 2.9 % (0.0-12.0); Neutrophils # (auto) 2.5 10 ^3/uL (1.6-8.6); Neutrophils % (auto) 81.2 % (37.0-80.0); Nucleated Red Blood Cells % 1.6 %; Platelet Count (auto) 101 10^3/uL (140-450); Red Cell Distribution Width 15.4 % (11.8-14.3); White Blood Cell 3.1 10^3/uL (4.4-10.8)
[2024-09-05] MEDS: ALBUTEROL SULF 2.5 MG/0.5ML(0.5%) NEB SOLN ONE ×2 (18:50→22:14)
[2024-09-05] MEDS: IPRATROPIUM BROM 0.5 MG/2.5ML INH SOL ONE ×2 (18:50→22:14)
[2024-09-05 21:28] LABS: INR 1.72 (0.9-1.15); Prothrombin Time 17.5 sec (9.3-11.8)
[2024-09-05] MEDS: PHENYLEPHRINE IV 250 ML IV SCH (22:00)
[2024-09-05] MEDS: ASCORBIC ACID 500 MG TAB PO SCH (22:44)
[2024-09-06] VITALS (38 sets, daily range): BP systolic 80–167; BP diastolic 15–75; PULSE 71–119; RESP 14–34; TEMP 86.1–98.3; O2SAT 90–100
[2024-09-06] LABS: Partial Thromboplastin Time 42.7 SEC (24.5-34.5)
[2024-09-06] MEDS: ALBUMIN 25% 100 ML IV ONE (00:40)
[2024-09-06] MEDS: HEPARIN DRIP/D5W 100UNITS/ML 250 ML IV SCH (00:45)
[2024-09-06 01:39] LABS: Hemoglobin 5.6 g/dL (12.2-16.2)
[2024-09-06] MEDS: PHENTOLAMINE MESYLATE 5 MG INJ VIAL SUBCUT ONE (04:43)
[2024-09-06] MEDS ORDERED: ALENDRONATE SODIUM 10 MG TAB PO SCH (06:00)
[2024-09-06 06:24] LABS: Hematocrit 17.2 % (36.0-46.0); Platelet Count (auto) 82 10^3/uL (140-450); Red Blood Cells 1.53 10^6/uL (4.0-5.20); Red Cell Distribution Width 15.2 % (11.8-14.3); White Blood Cell 2.1 10^3/uL (4.4-10.8)
[2024-09-06 06:30] LABS: Hemoglobin 5.7 g/dL (12.2-16.2)
[2024-09-06 06:31] LABS: Basophils % (manual) 0 (0.0-2.0); Blast Cells 0; Eosinophils % (manual) 0 (0-7); Metamyelocytes % 0; Myelocytes % 0; Promyelocytes % 0; Reactive Lymphocytes 0
[2024-09-06 06:38] LABS: Anion Gap 12 (5-15); BUN/Creatinine Ratio 11.8 (10.0-20.0)
[2024-09-06 06:45] LABS: Alanine Aminotransferase 53 U/L (7-40); Alkaline Phosphatase 396 U/L (46-116); Aspartate Aminotransferase 128 U/L (13-40); Bilirubin, Total 1.4 mg/dL (0.2-1.0); Blood Urea Nitrogen 27 mg/dL (9-23); Calcium 6.7 mg/dL (8.7-10.4); Carbon Dioxide 20 mmol/L (20-31); Chloride 114 mmol/L (98-107); Glucose 140 mg/dL (74-106); Potassium 2.5 mmol/L (3.5-5.1); Sodium 146 mmol/L (136-145); Total Protein 3.6 g/dL (5.7-8.2)
[2024-09-06] MEDS: LEVOTHYROXINE SODIUM 25 MCG TAB PO SCH (07:00)
[2024-09-06] MEDS: IPRATROPIUM BROM 0.5 MG/2.5ML INH SOL ONE ×5 (07:12→22:52)
[2024-09-06] MEDS: ALBUTEROL SULF 2.5 MG/0.5ML(0.5%) NEB SOLN ONE ×5 (07:12→22:52)
[2024-09-06 07:49] LABS: INR 1.65 (0.9-1.15); Prothrombin Time 16.9 sec (9.3-11.8)
[2024-09-06] MEDS: NOREPINEPHRINE 8 MG/250ML KIT 250 ML IV SCH (07:50)
[2024-09-06 07:52] LABS: Band Neutrophils % (manual) 3; Lymphocytes % (manual) 21 (10.0-50.0); Monocytes % (manual) 4 (0-12)
[2024-09-06 07:53] LABS: Platelet Estimate Decreased
[2024-09-06 07:54] LABS: Macrocytosis Moderate; Partial Thromboplastin Time > 139.0 SEC (24.5-34.5)
[2024-09-06] MEDS: VASOPRESSIN 20 UNIT/ML ONE (09:47)
[2024-09-06] MEDS: ETOMIDATE (2MG/ML) 20ML VIAL IV ONE ×2 (09:47→09:49)
[2024-09-06] MEDS: SUCCINYLCHOLINE CHLORIDE 20 MG/ML 10ML VIAL IV ONE ×2 (09:47→09:49)
[2024-09-06] MEDS: VASOPRESSIN 20 UNITS in SODIUM CHL 0.9% 99 ML IV SCH (09:53)
--- NOTE | 2024-09-06 09:59 | ED.PDOC ---
Was a procedure done? Was a procedure done?: Yes Sedation Sedation?: Yes Informed consent obtained: No Sedation start time: 09:50 Sedation end time: 09:51 Sedation total time: 1 minute Intubation Indication: Respiratory Insufficiency, Altered Mental Status Prep: Preoxygenation Pretreated with: Sedation Medicated with: Succinylcholine, Other (ETomidate) Intubation Approach: Orotracheal Informed consent obtained: No (Patient unresponsive, emergent.) Risks/benefits/alt described: No (Patient unresponsive, emergent.) Notes Call to bedside by nurse for emergent intubation due to change in patients mental status and agonal breathing. Intubation performed successfully after one attempt under video laryngoscopy. Tube secured, breath sounds auscultated b/l. Pending radiographic confirmation. (See RT notes for further details) I personally scribed for STACY LUA MD ([email or web address]) on 09/06/24 at 09:59. Electronically submitted by Trent Pond ([email or web address]). STACY LUA MD Sep 06, 2024 09:59
[2024-09-06] MEDS: MULTIPLE VITAMIN TAB PO SCH (10:00)
[2024-09-06] MEDS ORDERED: PATIENTS OWN MEDICATION (Folic Acid 1 MG) PO SCH (10:00)
[2024-09-06] MEDS: FOLIC ACID 1 MG TAB PO SCH (10:00)
[2024-09-06] MEDS ORDERED: MAGNESIUM OXIDE 400 MG TAB PO SCH (10:00)
[2024-09-06] MEDS: NICOTINE 21MG/24 HR TOPICAL PATCH TD SCH (10:00)
[2024-09-06] MEDS: PANTOPRAZOLE 40 MG TAB PO SCH (10:00)
[2024-09-06] MEDS: amLODIPine BESYLATE 5 MG TAB PO SCH (10:00)
[2024-09-06] MEDS: ZINC SULFATE 220mg CAP or TAB PO SCH (10:00)
[2024-09-06] MEDS: THIAMINE HCL 100 MG TAB PO SCH (10:00)
[2024-09-06] MEDS ORDERED: PATIENTS OWN MEDICATION (Magnesium Oxide 1 TAB) PO SCH (10:00)
[2024-09-06] MEDS: GELATIN 1 SPONGE SIZE 100 TOP ONE (10:41)
[2024-09-06] MEDS: Surgicel PA 2X3 INCH TOP ONE (10:41)
[2024-09-06] MEDS: MIDAZOLAM DRIP 50 mg/50mL 50 ML IV SCH (11:00)
--- NOTE | 2024-09-06 11:18 | DVH ---
CLINICAL INFORMATION: 69 years old, Female; SP CENTRAL LINE AND INTUBATION. TECHNIQUE: Single AP portable chest radiograph was obtained. COMPARISON: XY CHEST XRAY 1 VIEW on DOS: 09/05/24, XY CHEST PORTABLE on DOS: 09/30/23, CXRP on DOS: 07/25 01/13 FINDINGS: Interval placement of an endotracheal tube, with the distal tip approximately 2.2 cm above the level of the maricarmen. Right internal jugular central venous catheter reaches the proximal right atrium, just distal to the SVC/RA junction. No pneumothorax. Ill-defined bilateral airspace opacities and interst itial opacities slight increase in opacity in the left upper lobe/perihilar region. IMPRESSION: 1. Interval placement of an endotracheal tube and right internal jugular central venous catheter as d escribed above. 2. No pneumothorax. 3. Bilateral airspace opacities, with increasing airspace opacity in the left upper lobe / perihilar region.
[2024-09-06 11:22] LABS: Base Excess -12.1 mmol/L (-2.0-3.0)
--- NOTE | 2024-09-06 12:22 | DVHPN2 ---
Subjective Patient intubated Reviewed: Care Plan, H&P, Labs, Medications Changes from previous H/P or p: No Changes General: Per HPI Cardiovascular: Edema (3+ pitting edema to bilateral lower extremity) Respiratory: Dry Musculoskeletal: leg pain (Bilateral lower extremity) Skin: Bruising Objective Vitals Vital Signs Date Time Temp Pulse Resp B/P (MAP) Pulse Ox O2 Delivery O2 Flow Rate FiO2 09/06/24 11:35 192/98 09/06/24 11:28 99 19 100 60 09/06/24 10:45 89.1 89.1 09/06/24 06:18 Room Air 0.0 Intake/Output Intake and Output 09/06/24 07:00 Intake Total 2800.0 ml Output Total 5 ml Balance 2795.0 ml IV Total 2800.0 ml Output Urine Total 5 ml General Appearance: severe distress, Other (Encephalopathic) HEENT: Other (Bruising to right neck. JVD noted.) Lungs: Other Cardiovascular: Normal S1, Normal S2 Musculoskeletal: Normal sensory function Skin: Dry, Intact Psych/Mental Status: Other (Altered mental status) Medications Current Medications Medications Dose Ordered Sig/Abebe Route Start Time Stop Time Status Last Admin Dose Admin Albuterol 2.5 mg Q2HPRN PRN NEB 09/05/24 11:00 Albuterol 2.5 mg Q4HR NEB 09/05/24 14:00 09/06/24 11:14 2.5 MG Ipratropium [place] 0.5 mg Q4HR NEB 09/05/24 14:00 09/06/24 11:14 0.5 MG Ondansetron HCl 4 mg Q4HP PRN IV 09/05/24 11:30 Zinc Sulfate 220 mg DAILY PO 09/06/24 10:00 Ascorbic Acid 500 mg BID PO 09/05/24 22:00 Multivitamins 1 tab DAILY PO 09/06/24 10:00 Acetaminophen 650 mg Q6HP PRN PO 09/05/24 11:30 Nitroglycerin 0.4 mg Q5MINP PRN SL 09/05/24 11:30 Morphine Sulfate 2 mg Q30M PRN IV 09/05/24 11:30 Amlodipine Besylate 5 mg DAILY PO 09/06/24 10:00 Ergocalciferol 50,000 unit Q7D PO 09/05/24 11:45 Levothyroxine Sodium 75 mcg QAM PO 09/06/24 07:00 Nicotine 1 patch DAILY TD 09/06/24 10:00 Pantoprazole Sodium 40 mg DAILY PO 09/06/24 10:00 Thiamine HCl 100 mg DAILY PO 09/06/24 10:00 Folic Acid 1 mg DAILY PO 09/06/24 10:00 Magnesium Oxide 400 mg DAILY PO 09/06/24 10:00 Hold Phenylephrine HCl 250 ml @ 30 mls/hr Q8H20M IV 09/05/24 21:45 09/06/24 07:59 135 MLS/HR Norepinephrine Bitartrate 250 ml @ 3.75 mls/hr Q24H IV 09/06/24 07:30 09/06/24 07:50 3.75 MLS/HR Midazolam HCl 50 ml @ 1 mls/hr Q24H IV 09/06/24 09:45 09/06/24 11:00 1 MLS/HR Vasopressin 20 units/Sodium Chloride 100 ml @ 9 mls/hr Q11H7M IV 09/06/24 09:45 09/06/24 09:53 9 MLS/HR Folic Acid 1 mg/ Multivitamins 10 ml/Magnesium Sulfate 8 meq/ Thiamine HCl 100 mg/Dextrose 1,013.2 ml @ 125.001 mls/hr DAILY@1800 INJ 09/06/24 12:00 UNV Potassium Chloride 100 ml @ 50 mls/hr Q2H IV 09/06/24 12:00 09/06/24 15:59 UNV Meropenem 50 ml @ 17 mls/hr Q12HR IV 09/06/24 22:00 UNV Pantoprazole Sodium 40 mg BID IV 09/06/24 22:00 UNV Laboratory Results Laboratory Tests 09/06/24 05:40 Chemistry Test 09/06/24 05:40 Albumin 2.0 g/dL (3.2-4.8) L Calcium Level 6.7 mg/dL (8.7-10.4) L Total Protein 3.6 g/dL (5.7-8.2) L Coagulation Test 09/05/24 20:00 09/06/24 05:40 Prothrombin Time 17.5 sec (9.3-11.8) H 16.9 sec (9.3-11.8) H Prothrombin Time INR 1.72 (0.9-1.15) H 1.65 (0.9-1.15) H Activated Partial Thromboplast Time 42.7 SEC (24.5-34.5) H > 139.0 SEC (24.5-34.5) *H LFT Test 09/06/24 05:40 Alanine Aminotransferase (ALT) 53 U/L (7-40) H Alkaline Phosphatase 396 U/L (46-116) H Aspartate Amino Transferase (AST) 128 U/L (13-40) H Total Bilirubin 1.4 mg/dL (0.2-1.0) H Blood Gas Results Test 09/06/24 11:16 Arterial Blood pH 7.178 (7.350-7.450) FiO2 % 100.0 Labs and/or images reviewed: Labs reviewed by me, Image(s) reviewed by me Assessment/Plan Assessment/Plan Impression: -metabolic encephalopathy -history of alcoholism -? Dementia -bilateral DVTs -liver cirrhosis -probable GI bleed with worsening anemia -hypoalbuminemia -acute kidney injury, hemodynamically mediated,? V MN -acute hypoxic respiratory failure -rule out aspiration pneumonia -shock, probable septic and hemorrhagic etiology -hypothermia Plan: -patient was emergently intubated by the ER doctor. Central line placed by myself. Patient on multiple vasopressors at this time. -continue with 2 units PRBC -continue vasopressor therapy with norepinephrine and phenylephrine -Protonix 40 mg IV b.i.d. -NPO including medications -GI consultation -nephrology consultation -banana bag daily -potassium replacement -repeat CMP and CBC yet 1500 today -vent settings: A.c. 18, tidal volume 400, peep of five, FiO2 titrating down from 100% given recent ABG. -daily ABG, chest x-ray, CBC, CMP. Critical care time spent with patient discussing and formulating plan of care: 40 minutes. This does not include time spent performing procedures. This medical document was created using an electronic medical record system with [employer] system. Although this document has been carefully reviewed, there may still be some phonetic and typographical errors. These areas are purely typographical due to imperfections of the software programs, and do not reflect any compromise in the patient's medical care. Plan discussed with: Patient, Other (RN) My Orders Orders - PAULINO HAMMER CHILDR[employer]'S TUTOR Procedure Category Date Status Time Chest Xray 1 View XY 09/06/24 Resulted 10:46 Respiratory Misc. RT 09/06/24 Transmitted Order 11:00 Ventilator Orders RT 09/06/24 Transmitted 11:24 Folic Acid... PHA 09/06/24 Logged 12:00 Potassium Chl PHA 09/06/24 Logged 20meq/100ml 12:00 Meropenem 500mg Ivpb PHA 09/06/24 Logged (Merrem 500mg/Ns) 22:00 Carcinoembryonic LAB 09/06/24 Logged Antigen 11:48 Pantoprazole PHA 09/06/24 Logged (Protonix) 22:00 Complete Blood Count LAB 09/06/24 Logged 15:00 Comprehensive LAB 09/06/24 Logged Metabolic Panel 15:00 Basic Metabolic Panel LAB 09/07/24 Verified 05:00 Basic Metabolic Panel LAB 09/08/24 Verified 05:00 Basic Metabolic Panel LAB 09/09/24 Verified 05:00 Complete Blood Count LAB 09/07/24 Verified 05:00 Complete Blood Count LAB 09/08/24 Verified 05:00 Complete Blood Count LAB 09/09/24 Verified 05:00 Chest Portable XY 09/07/24 Logged 05:00 Chest Portable XY 09/08/24 Logged 05:00 Chest Portable XY 09/09/24 Logged 05:00 Abg W/ Co-Ox RT 09/07/24 Logged 05:00 Abg W/ Co-Ox RT 09/08/24 Logged 05:00 Abg W/ Co-Ox RT 09/09/24 Logged 05:00 Thyroid Stimulating LAB 09/06/24 Verified Hormone 11:56 Date of Service: Sep 06, 2024 Billing Provider: PAULINO HAMMER CHILDREN'S TUTOR Common Visit Codes: [id number] CARE 30-74 MIN PAULINO HAMMER NP Sep 06, 2024 12:21
--- NOTE | 2024-09-06 12:38 | DVHINCON2 ---
Date of service: Sep 06, 2024 Referring Physician Hospitalist Reason for Consultation Acute kidney injury History of Present Illness 69-year-old female unable to obtain history as patient was intubated. Patient presents to the hospital complaining of weakness. Patient is noted to be hypotensive nephrology consulted due to elevated creatinine level. Baseline renal function is unknown. The patient has a hemoglobin of 5.7 at presentation. Patient has imaging that shows bilateral DVTs. Allergies: Coded Allergies: NO KNOWN ALLERGIES (Unverified , 06/30/17) Home Meds Active Scripts Thiamine Hcl (VITAMIN B-1) 100 Mg Tb, 100 MG PO DAILY for 30 Days, #30 TAB Prov:[facility] 10/02/23 Pantoprazole Sodium Sesquihydr (Pantoprazole Sodium) 40 Mg Tab, 40 MG PO DAILY for 30 Days, #30 TAB Prov:[facility] 10/02/23 Nicotine (Nicoderm 21MG/24HR) 1 Patch Ph, 1 PATCH TD DAILY for 30 Days, #30 PATCH Prov:[facility] 10/02/23 Folic Acid (Folic Acid) 1 Mg Tab, 1 MG PO DAILY for 30 Days, #30 TAB Prov:[facility] 10/02/23 Ergocalciferol (VITAMIN D 57465 UNIT) 50,000 [place], [address] UNIT PO Q7D for 10 Days, #30 CAP Prov:[facility] 10/02/23 Apixaban Base (ELIQUIS) 5 Mg Tab, 5 MG PO BID for 30 Days, #60 TAB Take apixaban 10 mg p.o. twice daily for 7 days. Afterwards apixaban 5 mg p.o. twice daily for at least 3 months Prov:[facility] 10/02/23 Apixaban Base (Eliquis Starter Pack) 5 Mg Tab, 10 MG PO BID for 7 Days, #28 TAB Prov:MATTHIAS JEAN MD 09/29/23 Levothyroxine Sodium (Levothyroxine Sodium) 25 Mcg Tab, 75 MCG PO QAM for 30 Day s, #30 TAB Prov:JUANJO BAEZ MD 08/15/22 Reported Medications Potassium Chloride (Klor-Con M10) 10 Meq Tab, 1 TAB PO DAILY 10/01/23 Pantoprazole Sodium Sesquihydr (Protonix) 40 Mg Tab, 1 TAB PO DAILY 10/01/23 Magnesium Oxide (Magnesium Oxide) 400 Mg Tab, 1 TAB PO DAILYPRN 08/08/22 Alendronate Sodium (Alendronate Sodium) 70 Mg Tab, 1 TAB PO QWEEKLY 08/08/22 Gemfibrozil (Gemfibrozil) 600 Mg Tab, 600 MG PO BID for 30 Days 06/30/17 Amlodipine Besylate (Amlodipine Besylate) 5 Mg Tab, 5 MG PO DAILY 01/26/13 Current Medications Current Medications Medications (Trade) Dose Ordered Sig/Abebe Route PRN Reason Start Time Stop Time Status Last Admin Albuterol (Ventolin Medneb) 2.5 mg Q4HR NEB 09/05/24 14:00 09/06/24 11:14 Ipratropium [place] (Atrovent Medneb) 0.5 mg Q4HR NEB 09/05/24 14:00 09/06/24 11:14 Zinc Sulfate 220 mg DAILY PO 09/06/24 10:00 Ascorbic Acid (Vitamin C Tablet) 500 mg BID PO 09/05/24 22:00 Multivitamins (Mvi Tab) 1 tab DAILY PO 09/06/24 10:00 Amlodipine Besylate (Norvasc Tablet) 5 mg DAILY PO 09/06/24 10:00 Levothyroxine Sodium (Synthroid Tablet) 75 mcg QAM PO 09/06/24 07:00 Nicotine (Nicoderm 21MG/ 24HR) 1 patch DAILY TD 09/06/24 10:00 Pantoprazole Sodium (Protonix Tablet) 40 mg DAILY PO 09/06/24 10:00 09/06/24 12:18 DC Thiamine HCl 100 mg DAILY PO 09/06/24 10:00 Patient Own Medication 1 mg DAILY PO 09/06/24 10:00 09/05/24 11:51 DC Patient Own Medication 1 tab DAILYPRN PO 09/06/24 10:00 09/05/24 11:51 DC Alendronate Sodium (Fosamax) 70 mg QWEEKLY PO 09/06/24 06:00 09/06/24 11:57 DC Folic Acid 1 mg DAILY PO 09/06/24 10:00 Magnesium Oxide (Mag-Ox Tablet) 400 mg DAILY PO 09/06/24 10:00 Hold Phenylephrine HCl 250 ml @ 30 mls/hr Q8H20M IV 09/05/24 21:45 09/06/24 07:59 Heparin Sodium/ Dextrose 250 ml @ 12 mls/hr [id number] IV 09/06/24 00:45 09/06/24 11:57 DC Norepinephrine Bitartrate 250 ml @ 3.75 mls/hr Q24H IV 09/06/24 07:30 09/06/24 07:50 Midazolam HCl 50 ml @ 1 mls/hr Q24H IV 09/06/24 09:45 09/06/24 11:00 Vasopressin 20 units/Sodium Chloride 100 ml @ 9 mls/hr Q11H7M IV 09/06/24 09:45 09/06/24 09:53 Folic Acid 1 mg/ Multivitamins 10 ml/Magnesium Sulfate 8 meq/ Thiamine HCl 100 mg/Dextrose 1,013.2 ml @ 125 mls/ hr DAILY@1800 INJ 09/07/24 18:00 09/10/24 17:59 Potassium Chloride 100 ml @ 50 mls/hr Q2H IV 09/06/24 12:00 09/06/24 15:59 Meropenem 50 ml @ 17 mls/hr Q12HR IV 09/06/24 22:00 Pantoprazole Sodium (Protonix) 40 mg BID IV 09/06/24 22:00 Family History: FH: cancer G8 MOTHER G8 FATHER Review of Systems Can not obtain due to critical illness H&P Exam Vital Signs/I&O Vital Sign Date Time Temp Pulse Resp B/P (MAP) Pulse Ox O2 Delivery O2 Flow Rate FiO2 09/06/24 11:35 192/98 09/06/24 11:28 99 19 100 60 09/06/24 10:45 89.1 89.1 09/06/24 06:18 Room Air 0.0 Intake and Output 09/05/24 09/06/24 19:00 07:00 Intake Total 2800.0 ml Output Total 5 ml Balance 2795.0 ml IV Total 2800.0 ml Output Urine Total 5 ml Physical Exam Critically ill frail appearing female Intubated Multiple bruises Central line Distended abdomen with fluid wave Camacho catheter without urine Labs/Diagnostic Data Labs/Diagnostic Data Laboratory Tests Test 09/06/24 11:16 09/06/24 05:40 09/06/24 01:16 09/05/24 20:00 Range/Units Blood Gas Specimen Type Arterial Blood Gas Sample Site Right radial Blood Gas Patient Temperature 37.0 Arterial Blood Date Drawn [id number] Arterial Blood pH 7.178 *L 7.350-7.450 Arterial Blood Partial Pressure CO2 43.1 32.0-45.0 mmHg Arterial Blood Partial Pressure O2 233.7 H 83.0-108.0 mmHg Arterial Blood HCO3 15.7 L 21.0-28.0 mmol/L Arterial Blood Oxygen Saturation 98.9 H 94.0-98.0 % Arterial Blood Base Excess -12.1 L -2.0-3.0 mmol/L Arterial Blood Oxyhemoglobin 97.9 94.0-98.0 % Arterial Blood Carboxyhemoglobin 0.3 L 0.5-1.5 % Arterial Blood Methemoglobin 0.7 0.0-1.5 % Damián Test Modified Blood Gas Total Hemoglobin 10.50 L 12.0-16.0 g/dL Blood Gas Set Respiration Rate 16.0 Blood Gas Modality Vent - ac FiO2 % 100.0 Blood Gas Tidal Volume 400.0 Blood Gas PEEP or CPAP 5.0 Blood Gas Critical Value Read Back Yes Blood Gas Notified Whom Keenan wheeler np Blood Gas Notified Time [id number] Blood Gas Notified By Randy hare rrt White Blood Count 2.1 L 4.4-10.8 10^3/uL Red Blood Count 1.53 L 4.0-5.20 10^6/uL Hemoglobin 5.7 *L 5.6 #*L 12.2-16.2 g/dL Hematocrit 17.2 L 17.0 #L 36.0-46.0 % Mean Corpuscular Volume 112.0 H 80.0-100.0 fL Mean Corpuscular Hemoglobin 37.0 H 28.0-32.0 pg Mean Corpuscular Hemoglobin Concent 33.0 32.0-36.0 g/dL Red Cell Distribution Width 15.2 H 11.8-14.3 % Platelet Count 82 L 140-450 10^3/uL Mean Platelet Volume 11.1 H 6.9-10.8 fL Neutrophils (%) (Auto) 37.0-80.0 % Lymphocytes (%) (Auto) 10.0-50.0 % Monocytes (%) (Auto) 0.0-12.0 % Basophils (%) (Auto) 0.0-2.0 % Neutrophils # (Auto) 1.6-8.6 10 ^3/uL Lymphocytes # (Auto) 0.4-5.4 10 ^3/uL Monocytes # (Auto) 0-1.3 10 ^3/uL Differential Total Cells Counted 100.0 100 Neutrophils % (Manual) 72 37.0-80.0 Band Neutrophils % (Manual) 3 Lymphocytes % (Manual) 21 10.0-50.0 Monocytes % (Manual) 4 0-12 Eosinophils % (Manual) 0 0-7 Basophils % (Manual) 0 0.0-2.0 Metamyelocytes % (manual) 0 Myelocytes % (Manual) 0 Promyelocytes % (Manual) 0 Blast Cells % (Manual) 0 Nucleated Red Blood Cells 1.0 % Reactive Lymphocytes 0 Platelet Estimate Decreased Macrocytosis Moderate Prothrombin Time 16.9 H 17.5 H 9.3-11.8 sec Prothrombin Time INR 1.65 H 1.72 H 0.9-1.15 Activated Partial Thromboplast Time > 139.0 *H 42.7 H 24.5-34.5 SEC Sodium Level 146 H 136-145 mmol/L Potassium Level 2.5 *L 3.5-5.1 mmol/L Chloride Level 114 H 98-107 mmol/L Carbon Dioxide Level 20 20-31 mmol/L Anion Gap 12 5-15 Blood Urea Nitrogen 27 H 9-23 mg/dL Creatinine 2.28 H 0.550-1.02 mg/dL Glomerular Filtration Rate Calc 22 >90 mL/min BUN/Creatinine Ratio 11.8 10.0-20.0 Serum Glucose 140 H 74-106 mg/dL Calcium Level 6.7 L 8.7-10.4 mg/dL Total Bilirubin 1.4 H 0.2-1.0 mg/dL Aspartate Amino Transferase (AST) 128 H 13-40 U/L Alanine Aminotransferase (ALT) 53 H 7-40 U/L Alkaline Phosphatase 396 H 46-116 U/L Total Protein 3.6 L 5.7-8.2 g/dL Albumin 2.0 L 3.2-4.8 g/dL Carcinoembryonic Antigen 18.56 <=5.0 ng/mL Thyroid Stimulating Hormone (TSH) 1.84 0.55-4.78 uIU/mL Test 09/05/24 14:20 09/05/24 11:59 09/05/24 03:47 09/05/24 03:30 Range/Units White Blood Count 3.1 #L 4.3 L 4.4-10.8 10^3/uL Red Blood Count 2.33 L 2.30 L 4.0-5.20 10^6/uL Hemoglobin 8.5 L 8.7 L 12.2-16.2 g/dL Hematocrit 26.1 L 25.5 L 36.0-46.0 % Mean Corpuscular Volume 112.4 H 110.7 H 80.0-100.0 fL Mean Corpuscular Hemoglobin 36.8 H 37.6 H 28.0-32.0 pg Mean Corpuscular Hemoglobin Concent 32.7 34.0 32.0-36.0 g/dL Red Cell Distribution Width 15.4 H 15.4 H 11.8-14.3 % Platelet Count 101 L 127 L 140-450 10^3/uL Mean Platelet Volume 10.9 H 10.7 6.9-10.8 fL Neutrophils (%) (Auto) 81.2 H 80.6 H 37.0-80.0 % Lymphocytes (%) (Auto) 14.8 14.9 10.0-50.0 % Monocytes (%) (Auto) 2.9 3.3 0.0-12.0 % Eosinophils (%) (Auto) 0.5 0.4 0.0-7.0 % Basophils (%) (Auto) 0.6 0.8 0.0-2.0 % Neutrophils # (Auto) 2.5 3.5 1.6-8.6 10 ^3/uL Lymphocytes # (Auto) 0.5 0.6 0.4-5.4 10 ^3/uL Monocytes # (Auto) 0.1 0.1 0-1.3 10 ^3/uL Eosinophils # (Auto) 0 0 0-0.8 10 ^3/uL Basophils # (Auto) 0 0 0-0.2 10 ^3/uL Nucleated Red Blood Cells 1.6 1.7 % Prothrombin Time 14.4 H 14.4 H 9.3-11.8 sec Prothrombin Time INR 1.36 H 1.36 H 0.9-1.15 Activated Partial Thromboplast Time 35.3 H 24.5-34.5 SEC Serum Osmolality 304 H 278-298 mOsm/kg Iron Level 66 50-170 ug/dL Total Iron Binding Capacity 115 L 250-425 ug/dL Percent Iron Saturation 57.4 H 15-50 % Direct Bilirubin 1.3 H <0.3 mg/dL Ammonia 23 11-32 umol/L Creatine Kinase 416 H 34-145 U/L Platelet Estimate Decrea Large Platelets Few Macrocytosis Moderate Target Cells Few Sodium Level 142 136-145 mmol/L Potassium Level 3.9 3.5-5.1 mmol/L Chloride Level 107 98-107 mmol/L Carbon Dioxide Level 23 20-31 mmol/L Anion Gap 12 5-15 Blood Urea Nitrogen 28 H 9-23 mg/dL Creatinine 2.70 H 0.550-1.02 mg/dL Glomerular Filtration Rate Calc 18 >90 mL/min BUN/Creatinine Ratio 10.4 10.0-20.0 Serum Glucose 109 H 74-106 mg/dL Calcium Level 7.9 L 8.7-10.4 mg/dL Total Bilirubin 1.5 H 0.2-1.0 mg/dL Aspartate Amino Transferase (AST) 105 H 13-40 U/L Alanine Aminotransferase (ALT) 57 H 7-40 U/L Alkaline Phosphatase 610 H 46-116 U/L Troponin I High Sensitivity 11 </=34 ng/L B-Type Natriuretic Peptide 87.08 0-100 pg/mL Total Protein 4.1 L 5.7-8.2 g/dL Albumin 1.9 L 3.2-4.8 g/dL Assessment Acute kidney injury hemodynamically mediated in setting of shock Cirrhosis with ascites History of CHF Nonobstructing kidney stone Acute bilateral DVT Acute respiratory failure Anemia due to blood loss Hypokalemia Replace potassium Start IV fluid Start PRBC Recommend IV heparin Recommend pressors to keep mean arterial pressure greater than 65 Patient is critically ill, critical care time 33 minutes Plan discussed with: Other GRACIA BAY MD Sep 06, 2024 12:38
[2024-09-06] MEDS: SODIUM CHLORIDE 0.9% 1,000 ML IV SCH (12:45)
[2024-09-06] MEDS: NOREPINEPHRINE BITARTRATE 16 MG in SODIUM CHL 0.9% 234 ML IV SCH (13:37)
[2024-09-06] MEDS: FOLIC ACID 1 MG, MULTIPLE VITAMIN 10 ML, MAGNESIUM SULF SDV 50% 8 MEQ, THIAMINE INJ 100... INJ ONE (14:00)
[2024-09-06] MEDS: SODIUM BICARB 8.4% 50Meq/50ml SYR Vial IV ONE (15:00)
[2024-09-06] MEDS: POTASSIUM CHL 20MEQ/100ML 100 ML IV SCH ×2 (15:14→20:08)
[2024-09-06 15:35] LABS: Hemoglobin 9.1 g/dL (12.2-16.2)
[2024-09-06 15:36] LABS: Hematocrit 26.6 % (36.0-46.0); Mean Corpuscular Hemoglobin 33.1 pg (28.0-32.0); Mean Corpuscular Hgb Conc. 34.4 g/dL (32.0-36.0); Mean Corpuscular Volume 96.3 fL (80.0-100.0); Platelet Count (auto) 61 10^3/uL (140-450); Red Blood Cells 2.76 10^6/uL (4.0-5.20); Red Cell Distribution Width 19.5 % (11.8-14.3)
[2024-09-06 15:43] LABS: White Blood Cell 1.7 10^3/uL (4.4-10.8)
[2024-09-06 15:45] LABS: Band Neutrophils % (manual) 0; Basophils % (manual) 0 (0.0-2.0); Blast Cells 0; Eosinophils % (manual) 0 (0-7); Metamyelocytes % 0; Myelocytes % 0; Promyelocytes % 0; Reactive Lymphocytes 0
[2024-09-06 16:00] LABS: Anion Gap 11 (5-15); BUN/Creatinine Ratio 12.7 (10.0-20.0); Carbon Dioxide 27 mmol/L (20-31)
[2024-09-06 16:01] LABS: Alanine Aminotransferase 48 U/L (7-40); Albumin 1.6 g/dL (3.2-4.8); Alkaline Phosphatase 331 U/L (46-116); Aspartate Aminotransferase 115 U/L (13-40); Bilirubin, Total 1.2 mg/dL (0.2-1.0); Blood Urea Nitrogen 28 mg/dL (9-23); Calcium 6.2 mg/dL (8.7-10.4); Chloride 112 mmol/L (98-107); Glucose 205 mg/dL (74-106); Sodium 150 mmol/L (136-145); Total Protein 2.9 g/dL (5.7-8.2)
[2024-09-06 16:03] LABS: Potassium 2.5 mmol/L (3.5-5.1)
[2024-09-06] MEDS: SOD CHL 0.45% 1,000 ML IV SCH (17:15)
[2024-09-06 17:54] LABS: Lymphocytes % (manual) 43 (10.0-50.0); Monocytes % (manual) 7 (0-12)
[2024-09-06 17:55] LABS: Anisocytosis Slight; Platelet Estimate Decreased
[2024-09-06 21:54] LABS: Hematocrit 30.5 % (36.0-46.0); Hemoglobin 10.4 g/dL (12.2-16.2)
[2024-09-06 22:15] LABS: Base Excess -7.6 mmol/L (-2.0-3.0)
[2024-09-06] MEDS: ALBUMIN 5% 250 ML IV ONE (22:30)
[2024-09-06] MEDS: PANTOPRAZOLE 40 MG/10 ML VIAL INJ IV SCH (22:32)
[2024-09-06] MEDS: MEROPENEM 500MG IVPB 50 ML IV SCH (22:32)
[2024-09-07] VITALS (106 sets, daily range): BP systolic 70–115; BP diastolic 38–78; PULSE 98–122; RESP 18–34; TEMP 94.4–99.3; O2SAT 84–100
[2024-09-07] MEDS: VASOPRESSIN 20 UNIT/ML ONE (00:49)
[2024-09-07] MEDS: ALBUMIN 5% 250 ML IV ONE (00:53)
[2024-09-07] MEDS: IPRATROPIUM BROM 0.5 MG/2.5ML INH SOL ONE ×4 (02:30→21:52)
[2024-09-07] MEDS: ALBUTEROL SULF 2.5 MG/0.5ML(0.5%) NEB SOLN ONE ×4 (02:30→21:52)
[2024-09-07] MEDS: EPINEPHrine HCL 250 ML IV SCH (02:46)
[2024-09-07] MEDS: EPINEPHrine HCL 250 ML IV ONE (02:48)
[2024-09-07 04:29] LABS: Hematocrit 27.7 % (36.0-46.0); Hemoglobin 9.2 g/dL (12.2-16.2)
[2024-09-07 04:32] LABS: Sodium 141 mmol/L (136-145)
[2024-09-07 04:33] LABS: Anion Gap 13 (5-15)
[2024-09-07 04:38] LABS: Blood Urea Nitrogen 22 mg/dL (9-23)
[2024-09-07 04:47] LABS: Mean Corpuscular Hemoglobin 32.8 pg (28.0-32.0); Mean Corpuscular Hgb Conc. 33.2 g/dL (32.0-36.0); Platelet Count (auto) 53 10^3/uL (140-450); White Blood Cell 3.3 10^3/uL (4.4-10.8)
[2024-09-07 04:51] LABS: Basophils % (manual) 0 (0.0-2.0); Blast Cells 0; Eosinophils % (manual) 0 (0-7); Promyelocytes % 0; Reactive Lymphocytes 0
[2024-09-07 04:56] LABS: Calcium 6.3 mg/dL (8.7-10.4); Carbon Dioxide 17 mmol/L (20-31); Chloride 111 mmol/L (98-107); Glucose 218 mg/dL (74-106); Potassium 3.5 mmol/L (3.5-5.1)
--- NOTE | 2024-09-07 05:40 | DVH ---
CHEST RADIOGRAPH Indication: line placement, pna Technique: Single frontal view of the chest was obtained COMPARISON: XY CHEST XRAY 1 VIEW on DOS: 09/06/24, XY CHEST XRAY 1 VIEW on DOS: 09/05/24, XY CHEST PORT ABLE on DOS: 09/30/23, CXRP on DOS: 08/08/22, CHEST PORTABLE on DOS: 08/08/22 FINDINGS: Lines and Tubes: Endotracheal tube, enteric catheter and right central venous catheter in satisfactor y position. Lungs: Increased congestion. Pleura: No effusion. No pneumothorax. Cardiomediastinal contours: Unremarkable Bones: Unremarkable IMPRESSION: Increased congestion.
[2024-09-07] MEDS: NOREPINEPHRINE 8 MG/250ML KIT 250 ML IV ONE (07:06)
[2024-09-07] MEDS: NOREPINEPHRINE BITARTRATE 2 ML IV ONE (07:08)
[2024-09-07 07:28] LABS: Band Neutrophils % (manual) 17; Lymphocytes % (manual) 25 (10.0-50.0); Metamyelocytes % 8; Monocytes % (manual) 6 (0-12); Myelocytes % 1
[2024-09-07 07:29] LABS: Platelet Estimate Decreased
[2024-09-07 07:30] LABS: Anisocytosis Slight
[2024-09-07 07:41] LABS: Base Excess -11.6 mmol/L (-2.0-3.0)
[2024-09-07] MEDS: LEVOTHYROXINE SODIUM 25 MCG TAB ONE (07:54)
[2024-09-07] MEDS: LEVOTHYROXINE SODIUM 50 MCG TAB ONE (07:54)
[2024-09-07] MEDS: LEVOTHYROXINE SODIUM 25 MCG TAB PO SCH (07:55)
--- NOTE | 2024-09-07 09:12 | DVHPN2 ---
Subjective Patient intubated and sedated Reviewed: Care Plan, H&P, Labs, Medications Changes from previous H/P or p: Changes General: Per HPI Cardiovascular: Edema (3+ pitting edema to bilateral lower extremity) Respiratory: Dry Musculoskeletal: leg pain (Bilateral lower extremity) Skin: Bruising Objective Vitals Vital Signs Date Time Temp Pulse Resp B/P (MAP) Pulse Ox O2 Delivery O2 Flow Rate FiO2 09/07/24 08:15 117 18 94/53 (67) 09/07/24 08:06 96 45 09/07/24 08:00 97.9 97.9 09/06/24 20:58 Mechanical Ventilator+ 09/06/24 07:30 0 Intake/Output Intake and Output 09/07/24 07:00 Intake Total 6698.250 ml Output Total 28 ml Balance 6670.250 ml Intake Oral 0 ml IV Total 4948.250 ml Blood Product 1400 ml Other 350 ml Output Urine Total 28 ml General Appearance: severe distress, Other (Encephalopathic) HEENT: Other (Bruising to right neck. JVD noted.) Lungs: Other Cardiovascular: Normal S1, Normal S2 Musculoskeletal: Normal sensory function Skin: Dry, Intact Psych/Mental Status: Other (Altered mental status) Medications Current Medications Medications Dose Ordered Sig/Abebe Route Start Time Stop Time Status Last Admin Dose Admin Albuterol 2.5 mg Q2HPRN PRN NEB 09/05/24 11:00 Albuterol 2.5 mg Q4HR NEB 09/05/24 14:00 09/07/24 06:10 2.5 MG Ipratropium [place] 0.5 mg Q4HR NEB 09/05/24 14:00 09/07/24 06:09 0.5 MG Ondansetron HCl 4 mg Q4HP PRN IV 09/05/24 11:30 Zinc Sulfate 220 mg DAILY PO 09/06/24 10:00 Ascorbic Acid 500 mg BID PO 09/05/24 22:00 Multivitamins 1 tab DAILY PO 09/06/24 10:00 Acetaminophen 650 mg Q6HP PRN PO 09/05/24 11:30 Nitroglycerin 0.4 mg Q5MINP PRN SL 09/05/24 11:30 Morphine Sulfate 2 mg Q30M PRN IV 09/05/24 11:30 Ergocalciferol 50,000 unit Q7D PO 09/05/24 11:45 Nicotine 1 patch DAILY TD 09/06/24 10:00 Thiamine HCl 100 mg DAILY PO 09/06/24 10:00 Folic Acid 1 mg DAILY PO 09/06/24 10:00 Magnesium Oxide 400 mg DAILY PO 09/06/24 10:00 Hold Phenylephrine HCl 250 ml @ 30 mls/hr Q8H20M IV 09/05/24 21:45 09/07/24 07:55 135 MLS/HR Midazolam HCl 50 ml @ 1 mls/hr Q24H IV 09/06/24 09:45 09/07/24 06:40 14 MLS/HR Vasopressin 20 units/Sodium Chloride 100 ml @ 9 mls/hr Q11H7M IV 09/06/24 09:45 09/06/24 09:53 9 MLS/HR Folic Acid 1 mg/ Multivitamins 10 ml/Magnesium Sulfate 8 meq/ Thiamine HCl 100 mg/Dextrose 1,013.2 ml @ 125 mls/ hr DAILY@1800 INJ 09/07/24 18:00 09/10/24 17:59 Meropenem 50 ml @ 17 mls/hr Q12HR IV 09/06/24 22:00 09/06/24 22:32 17 MLS/HR Pantoprazole Sodium 40 mg BID IV 09/06/24 22:00 09/06/24 22:32 40 MG Norepinephrine Bitartrate 16 mg/ Sodium Chloride 250 ml @ 1.875 mls/ hr Q24H IV 09/06/24 13:00 09/07/24 07:55 28.125 MLS/HR Sodium Chloride 1,000 ml @ 100 mls/hr Q10H IV 09/06/24 17:15 09/06/24 17:15 100 MLS/HR Epinephrine HCl 250 ml @ 7.5 mls/hr Q24H IV 09/07/24 02:30 09/07/24 02:46 7.5 MLS/HR Levothyroxine Sodium 75 mcg QAM PO 09/08/24 07:00 09/07/24 07:55 75 MCG Laboratory Results Laboratory Tests 09/07/24 04:07 Chemistry Test 09/06/24 15:00 09/07/24 04:07 Albumin 1.6 g/dL (3.2-4.8) L Calcium Level 6.2 mg/dL (8.7-10.4) L 6.3 mg/dL (8.7-10.4) L Total Protein 2.9 g/dL (5.7-8.2) L Coagulation Test 09/07/24 08:39 Prothrombin Time Pending Prothrombin Time INR Pending Activated Partial Thromboplast Time Pending LFT Test 09/06/24 15:00 Alanine Aminotransferase (ALT) 48 U/L (7-40) H Alkaline Phosphatase 331 U/L (46-116) H Aspartate Amino Transferase (AST) 115 U/L (13-40) H Total Bilirubin 1.2 mg/dL (0.2-1.0) H Blood Gas Results Test 09/06/24 11:16 09/06/24 22:11 09/07/24 07:30 Arterial Blood pH 7.178 (7.350-7.450) 7.378 (7.350-7.450) 7.317 (7.350-7.450) FiO2 % 100.0 45.0 45.0 Labs and/or images reviewed: Labs reviewed by me, Image(s) reviewed by me Assessment/Plan Assessment/Plan Impression: -metabolic encephalopathy -history of alcoholism -? Dementia -bilateral DVTs -liver cirrhosis -probable GI bleed with worsening anemia -hypoalbuminemia -acute kidney injury, hemodynamically mediated,? V MN -acute hypoxic respiratory failure -rule out aspiration pneumonia -shock, probable septic and hemorrhagic etiology -hypothermia Plan: Events: Patient now on vasopressors x 4. H&H stable. Now anuric. Pupils sluggish. A line placement -CT head when stable -continue vasopressor therapy with norepinephrine and phenylephrine -Protonix 40 mg IV b.i.d. -NPO including medications -GI consultation -nephrology consultation -banana bag daily -potassium replacement -repeat CMP and CBC yet 1500 today -vent settings: AC 18, TV 400, +5, 50% -daily ABG, chest x-ray, CBC, CMP. Critical care time spent with patient discussing and formulating plan of care: 40 minutes. This does not include time spent performing procedures. This medical document was created using an electronic medical record system with [employer] system. Although this document has been carefully reviewed, there may still be some phonetic and typographical errors. These areas are purely typographical due to imperfections of the software programs, and do not reflect any compromise in the patient's medical care. Plan discussed with: Patient, Other (RN) My Orders Orders - PAULINO HAMMER NP Procedure Category Date Status Time Chest Xray 1 View XY 09/06/24 Resulted 10:46 Respiratory Misc. RT 09/06/24 Transmitted Order 11:00 Ventilator Orders RT 09/06/24 Transmitted 11:24 Meropenem 500mg Ivpb PHA 09/06/24 In Process (Merrem 500mg/Ns) 22:00 Pantoprazole PHA 09/06/24 In Process (Protonix) 22:00 Basic Metabolic Panel LAB 09/08/24 Verified 05:00 Basic Metabolic Panel LAB 09/09/24 Verified 05:00 Complete Blood Count LAB 09/08/24 Verified 05:00 Complete Blood Count LAB 09/09/24 Verified 05:00 Chest Portable XY 09/07/24 Resulted 05:00 Chest Portable XY 09/08/24 Logged 05:00 Chest Portable XY 09/09/24 Logged 05:00 Abg W/ Co-Ox RT 09/07/24 Logged 05:00 Abg W/ Co-Ox RT 09/08/24 Logged 05:00 Abg W/ Co-Ox RT 09/09/24 Logged 05:00 Folic Acid... PHA 09/07/24 In Process 18:00 Mrsa Screen HECTOR 09/07/24 In Process 07:00 PTPTT LAB 09/07/24 In Process 08:22 Gastric Occult Blood LAB 09/07/24 Verified 09:00 Stool Occult Blood LAB 09/07/24 Verified 09:00 Bumetanide Injection PHA 09/07/24 Verified (Bumex Injection) 10:00 Cvp Monitoring ED NURSING 09/07/24 Verified Date of Service: Sep 07, 2024 Billing Provider: PAULINO HAMMER NP Common Visit Codes: [id number] CARE 30-74 MIN PAULINO HAMMER NP Sep 07, 2024 09:12
[2024-09-07 09:40] LABS: INR 1.79 (0.9-1.15); Partial Thromboplastin Time 69.4 SEC (24.5-34.5); Prothrombin Time 17.9 sec (9.3-11.8)
--- NOTE | 2024-09-07 10:12 | DVHNC2 ---
Arterial Puncture Indication: Assess ventilatory status, Assess acid-base status Procedure: Sterile Preparation, Arterial Punct Obtained Location: Right Femoral Informed consent obtained: Yes Notes Indications: Septic shock EBL 5 ml Ultrasound Guidance: [id number] Date of Service: Sep 07, 2024 Billing Provider: PAULINO HAMMER NP Common Visit Codes: PROCEDURE ONLY Procedure Codes: [id number] LINE PAULINO HAMMER NP Sep 07, 2024 10:12
[2024-09-07] MEDS: SODIUM BICARB 8.4% 50Meq/50ml SYR Vial IV ONE ×2 (10:34→22:53)
[2024-09-07] MEDS: BUMETANIDE 2.5mg/10ml (0.25 mg/ml) INJ IV ONE (10:36)
[2024-09-07] MEDS: THIAMINE 100mg/ml INJ (200mg/2ml VIAL) IV SCH (10:36)
[2024-09-07] MEDS: FOLIC ACID 1 MG in D5W 5% 50 ML INJ SCH (11:15)
--- NOTE | 2024-09-07 12:45 | DVHPN2 ---
Progress Note Date Seen: Sep 07, 2024 Medical Necessity Reason Pt with a Central, PICC or Fol: Yes The following are medically ne: Central Line, Camacho Catheter Subjective Patient reports: Feels worse Review of Systems: Deferred Objective vital signs Vital Sign Date Time Temp Pulse Resp B/P (MAP) Pulse Ox O2 Delivery O2 Flow Rate FiO2 09/07/24 12:30 99/64 09/07/24 12:15 108 22 09/07/24 12:00 45 09/07/24 12:00 94.4 94.4 09/07/24 09:35 94 09/07/24 08:00 Mechanical Ventilator+ 09/06/24 07:30 0 Total Intake and Output 09/06/24 09/06/24 09/07/24 15:00 23:00 07:00 Intake Total 1765 ml 2225.625 ml 2707.625 ml Output Total 0 ml 28 ml Balance 1765 ml 2225.625 ml 2679.625 ml medications Current Medications Medications Dose Ordered Sig/Abebe Route Start Time Stop Time Status Last Admin Dose Admin Albuterol 2.5 mg Q2HPRN PRN NEB 09/05/24 11:00 Albuterol 2.5 mg Q4HR NEB 09/05/24 14:00 09/07/24 09:34 2.5 MG Ipratropium [place] 0.5 mg Q4HR NEB 09/05/24 14:00 09/07/24 09:34 0.5 MG Ondansetron HCl 4 mg Q4HP PRN IV 09/05/24 11:30 Acetaminophen 650 mg Q6HP PRN PO 09/05/24 11:30 Nitroglycerin 0.4 mg Q5MINP PRN SL 09/05/24 11:30 Morphine Sulfate 2 mg Q30M PRN IV 09/05/24 11:30 Magnesium Oxide 400 mg DAILY PO 09/06/24 10:00 Hold Phenylephrine HCl 250 ml @ 30 mls/hr Q8H20M IV 09/05/24 21:45 09/07/24 11:45 135 MLS/HR Midazolam HCl 50 ml @ 1 mls/hr Q24H IV 09/06/24 09:45 09/07/24 10:36 10 MLS/HR Vasopressin 20 units/Sodium Chloride 100 ml @ 9 mls/hr Q11H7M IV 09/06/24 09:45 09/07/24 12:30 9 MLS/HR Folic Acid 1 mg/ Multivitamins 10 ml/Magnesium Sulfate 8 meq/ Thiamine HCl 100 mg/Dextrose 1,013.2 ml @ 125 mls/ hr DAILY@1800 INJ 09/07/24 18:00 09/10/24 17:59 Meropenem 50 ml @ 17 mls/hr Q12HR IV 09/06/24 22:00 09/07/24 11:15 17 MLS/HR Pantoprazole Sodium 40 mg BID IV 09/06/24 22:00 09/07/24 10:37 40 MG Norepinephrine Bitartrate 16 mg/ Sodium Chloride 250 ml @ 1.875 mls/ hr Q24H IV 09/06/24 13:00 09/07/24 07:55 28.125 MLS/HR Epinephrine HCl 250 ml @ 7.5 mls/hr Q24H IV 09/07/24 02:30 09/07/24 02:46 7.5 MLS/HR Thiamine HCl 100 mg DAILY IV 09/07/24 10:00 09/07/24 10:36 100 MG Folic Acid 1 mg/ Dextrose 50.2 ml @ 200.8 mls/ hr DAILY INJ 09/07/24 10:00 09/07/24 11:15 200.8 MLS/HR Examination: GENERAL:Abnormal, LUNGS:Abnormal, CVS:Abnormal, ABDOMEN:Abnormal, SKIN:Abnormal, NEURO:Abnormal laboratory and microbiology Laboratory Tests 09/07/24 04:07 Test 09/07/24 04:07 Range/Units Serum Glucose 218 H 74-106 mg/dL Microbiology Date/Time Source Procedure Growth Status 09/06/24 09:55 Sputum Gram Stain - Final Resulted 09/06/24 09:55 Sputum Respiratory Culture - Preliminary Resulted Problem List/Assessment/Plan Problem List/Assessment/Plan Acute kidney injury hemodynamically mediated in setting of shock Cirrhosis with ascites History of CHF Nonobstructing kidney stone Acute bilateral DVT Acute respiratory failure Anemia due to blood loss multiorgan failure shock IV fluid currently unstable on multiple pressors Recommend IV heparin Recommend pressors to keep mean arterial pressure greater than 65 Patient is critically ill, critical care time 33 minutes grim prognosis , expectation of survivial is very low Plan discussed with: Other Dietary Evaluation Review Comments: 1) If GI is accessible consider Jevity 1.2 @ 35 ml/hr x 24hr goal rate as tolerated 2) If pt remains NPO >7 days consider TPN to meet at least 75% of estimated needs 3) Advance pt diet when medically feasible to a 2gm Sodium diet modified per [employer] recommendations Expected Outcomes/Goals: 1) Pt to receive nutrition support within 7 days of NPO status 2) Pt diet to advance 3) F/U in 2-3 days CC Plasma Assessment Blood Product Administration S: [id number] GRACIA BAY MD Sep 07, 2024 12:45
[2024-09-07 14:53] LABS: Sodium 142 mmol/L (136-145)
[2024-09-07 14:54] LABS: Anion Gap 12 (5-15)
[2024-09-07 14:59] LABS: BUN/Creatinine Ratio 11.9 (10.0-20.0)
[2024-09-07 15:06] LABS: Blood Urea Nitrogen 26 mg/dL (9-23); Carbon Dioxide 18 mmol/L (20-31); Chloride 112 mmol/L (98-107); Glucose 204 mg/dL (74-106); Potassium 3.4 mmol/L (3.5-5.1)
[2024-09-07 15:08] LABS: Calcium 5.9 mg/dL (8.7-10.4)
[2024-09-07] MEDS: POTASSIUM CHL 20MEQ/100ML 100 ML IV ONE (15:49)
[2024-09-07] MEDS: CALCIUM GLUC 1,000mg/50ml-NS 50 ML IV ONE (15:49)
[2024-09-07] MEDS: FOLIC ACID 1 MG, MULTIPLE VITAMIN 10 ML, MAGNESIUM SULF SDV 50% 8 MEQ, THIAMINE INJ 100... INJ SCH (17:24)
[2024-09-07] MEDS: PHENYLEPHRINE INJ 80 MG in SODIUM CHL 0.9% 242 ML IV SCH (19:30)
[2024-09-07] MEDS: EPINEPHrine HCL INJECTION 16 MG in D5W 5% 234 ML IV SCH (19:30)
[2024-09-07] MEDS: NOREPINEPHRINE BITARTRATE 32 MG in SODIUM CHL 0.9% 218 ML IV SCH (19:30)
[2024-09-07] MEDS: ALBUMIN 25% 100 ML IV ONE (22:07)
[2024-09-07 22:36] LABS: Base Excess -12.2 mmol/L (-2.0-3.0)
[2024-09-07 23:34] LABS: Hematocrit 25.4 % (36.0-46.0); Hemoglobin 8.5 g/dL (12.2-16.2)
[2024-09-08] VITALS (107 sets, daily range): BP systolic 74–130; BP diastolic 40–75; PULSE 109–120; RESP 15–44; TEMP 97.9–99.5; O2SAT 82–100
[2024-09-08 03:35] LABS: Hemoglobin 8.5 g/dL (12.2-16.2)
[2024-09-08 03:38] LABS: Hematocrit 25.2 % (36.0-46.0); Mean Corpuscular Hemoglobin 33.3 pg (28.0-32.0); Mean Corpuscular Hgb Conc. 33.7 g/dL (32.0-36.0); Mean Corpuscular Volume 98.8 fL (80.0-100.0); Platelet Count (auto) 26 10^3/uL (140-450); Red Blood Cells 2.55 10^6/uL (4.0-5.20); White Blood Cell 11.7 10^3/uL (4.4-10.8)
[2024-09-08 03:43] LABS: Red Cell Distribution Width 21.3 % (11.8-14.3)
[2024-09-08 03:45] LABS: Basophils % (manual) 0 (0.0-2.0); Eosinophils % (manual) 0 (0-7); Promyelocytes % 0; Reactive Lymphocytes 0; Sodium 139 mmol/L (136-145)
[2024-09-08 03:46] LABS: Anion Gap 13 (5-15)
[2024-09-08 03:51] LABS: BUN/Creatinine Ratio 10.4 (10.0-20.0)
[2024-09-08 04:08] LABS: Blood Urea Nitrogen 23 mg/dL (9-23); Calcium 6.3 mg/dL (8.7-10.4); Carbon Dioxide 15 mmol/L (20-31); Chloride 111 mmol/L (98-107); Glucose 187 mg/dL (74-106); Potassium 3.4 mmol/L (3.5-5.1)
[2024-09-08 04:58] LABS: Blast Cells 1; Lymphocytes % (manual) 14 (10.0-50.0); Monocytes % (manual) 2 (0-12)
[2024-09-08 05:00] LABS: Anisocytosis Slight; Platelet Estimate Decreased; Target Cell FEW
[2024-09-08 05:01] LABS: Giant Platelets Few; Large Platelets FEW; Myelocytes % 6; Ovalocytes FEW
[2024-09-08 05:02] LABS: Band Neutrophils % (manual) 39; Metamyelocytes % 7
--- NOTE | 2024-09-08 05:26 | DVH ---
CHEST RADIOGRAPH Indication: line placement, pna Technique: Single frontal view of the chest was obtained Comparison: XY CHEST PORTABLE on DOS: 09/07/24 FINDINGS: Lines and Tubes: The endotracheal tube terminates 0.4 cm above the maricarmen. Right IJ access central ve nous catheter terminates in the right atrium. The enteric tube courses below the left hemidiaphragm a nd the tip extends outside the field of view. Lungs: Bilateral airspace disease is unchanged. Pleura: No effusion. No pneumothorax. Cardiomediastinal contours: Stable cardiovascular silhouette. Bones: No acute osseous abnormality. IMPRESSION: 1. Stable position of the support lines and tubes. 2. Bilateral airspace disease, unchanged.
[2024-09-08 05:37] LABS: Urine Bacteria FEW /hpf (None Seen); Urine Blood 1+ /uL (Negative); Urine Budding Yeast MANY /hpf (None Seen); Urine Clarity Turbid (Clear); Urine Color Yellow (Yellow); Urine Mucus FEW (None Seen); Urine Protein, UAD 1+ (Negative); Urine Specific Gravity 1.009 (1.001-1.035); Urine Squamous Epithelial Cell FEW /hpf (<5); Urine Urobilinogen Normal (Negative); Urine WBC 25 /hpf (0 - 5)
[2024-09-08] MEDS: ALBUTEROL SULF 2.5 MG/0.5ML(0.5%) NEB SOLN ONE ×2 (06:08→12:24)
[2024-09-08] MEDS ORDERED: LEVOTHYROXINE SODIUM 25 MCG TAB PO SCH (07:00)
[2024-09-08] MEDS: DOPamine 1600MCG/ML D5W 250 ML IV SCH (07:27)
[2024-09-08 08:03] LABS: Base Excess -12.4 mmol/L (-2.0-3.0)
[2024-09-08] MEDS: POTASSIUM CHL 20MEQ/100ML 100 ML IV ONE (08:23)
[2024-09-08] MEDS: SODIUM BICARB 8.4% 50Meq/50ml SYR Vial IV ONE (08:24)
[2024-09-08] MEDS: DOBUTamine 1000MCG/ML 250 ML IV SCH (08:25)
--- NOTE | 2024-09-08 09:03 | DVHPN2 ---
Subjective Patient intubated and sedated Reviewed: Care Plan, H&P, Labs, Medications Changes from previous H/P or p: No Changes General: Per HPI Cardiovascular: Edema (3+ pitting edema to bilateral lower extremity) Respiratory: Dry Musculoskeletal: leg pain (Bilateral lower extremity) Skin: Bruising Objective Vitals Vital Signs Date Time Temp Pulse Resp B/P (MAP) Pulse Ox O2 Delivery O2 Flow Rate FiO2 09/08/24 08:25 99/53 09/08/24 08:00 114 20 Mechanical Ventilator+ 45 45 09/08/24 07:15 92 09/08/24 04:15 97.9 97.9 09/06/24 07:30 0 Intake/Output Intake and Output 09/08/24 07:00 Intake Total 5088.893 ml Output Total 225 ml Balance 4863.893 ml Intake Oral 0 ml IV Total 5088.893 ml Output Urine Total 225 ml Stool Total 0 ml General Appearance: severe distress, Other (Encephalopathic) HEENT: Other (Sclerae icteric) Lungs: Other Cardiovascular: Normal S1, Normal S2 Abdomen: Normal bowel sounds, Soft, No tenderness Genitourinary: No Apparent Abnormalities (Camacho catheter) Musculoskeletal: Normal sensory function Skin: Dry, Intact Psych/Mental Status: Other (Altered mental status) Medications Current Medications Medications Dose Ordered Sig/Abebe Route Start Time Stop Time Status Last Admin Dose Admin Albuterol 2.5 mg Q2HPRN PRN NEB 09/05/24 11:00 Albuterol 2.5 mg Q4HR NEB 09/05/24 14:00 09/08/24 06:17 2.5 MG Ipratropium [place] 0.5 mg Q4HR NEB 09/05/24 14:00 09/08/24 06:17 0.5 MG Ondansetron HCl 4 mg Q4HP PRN IV 09/05/24 11:30 Acetaminophen 650 mg Q6HP PRN PO 09/05/24 11:30 Nitroglycerin 0.4 mg Q5MINP PRN SL 09/05/24 11:30 Morphine Sulfate 2 mg Q30M PRN IV 09/05/24 11:30 Magnesium Oxide 400 mg DAILY PO 09/06/24 10:00 Hold Midazolam HCl 50 ml @ 1 mls/hr Q24H IV 09/06/24 09:45 09/07/24 18:54 5 MLS/HR Vasopressin 20 units/Sodium Chloride 100 ml @ 9 mls/hr Q11H7M IV 09/06/24 09:45 09/08/24 03:21 9 MLS/HR Folic Acid 1 mg/ Multivitamins 10 ml/Magnesium Sulfate 8 meq/ Thiamine HCl 100 mg/Dextrose 1,013.2 ml @ 125 mls/ hr DAILY@1800 INJ 09/07/24 18:00 09/10/24 17:59 09/07/24 17:24 125 MLS/HR Meropenem 50 ml @ 17 mls/hr Q12HR IV 09/06/24 22:00 09/07/24 22:02 17 MLS/HR Pantoprazole Sodium 40 mg BID IV 09/06/24 22:00 09/07/24 22:05 40 MG Thiamine HCl 100 mg DAILY IV 09/07/24 10:00 09/07/24 10:36 100 MG Folic Acid 1 mg/ Dextrose 50.2 ml @ 200.8 mls/ hr DAILY INJ 09/07/24 10:00 09/07/24 11:15 200.8 MLS/HR Phenylephrine HCl 80 mg/Sodium Chloride 250 ml @ 7.5 mls/hr Q24H IV 09/07/24 19:30 09/07/24 19:30 33.75 MLS/HR Norepinephrine Bitartrate 32 mg/ Sodium Chloride 250 ml @ 0.938 mls/ hr Q24H IV 09/07/24 19:30 09/07/24 19:30 14.063 MLS/HR Epinephrine HCl 16 mg/Dextrose 250 ml @ 1.875 mls/ hr Q24H IV 09/07/24 19:30 09/07/24 19:30 9.375 MLS/HR Dopamine HCl/ Dextrose 250 ml @ 11.831 mls/ hr Q21H8M IV 09/07/24 23:00 Dobutamine HCl/ Dextrose 250 ml @ 9.465 mls/ hr Q24H IV 09/08/24 08:00 09/08/24 08:25 9.465 MLS/HR Laboratory Results Laboratory Tests 09/08/24 03:10 Chemistry Test 09/07/24 14:14 09/08/24 03:10 Calcium Level 5.9 mg/dL (8.7-10.4) *L 6.3 mg/dL (8.7-10.4) L Urinalysis Test 09/08/24 05:05 Urine Color Yellow (Yellow) Urine Clarity Turbid (Clear) H Urine pH 6.0 (5.0-9.0) Urine Specific [place] 1.009 (1.001-1.035) Urine Protein 1+ (Negative) H Urine Ketones Negative (Negative) Urine Blood 1+ /uL (Negative) H Urine Nitrite Negative (Negative) Urine Bilirubin Negative (Negative) Urine Urobilinogen Normal mg/dL (Negative) Urine Leukocyte Esterase 3+ /uL (Negative) Urine RBC 17 /hpf (0 - 4) Urine WBC 25 /hpf (0 - 5) Urine Squamous Epithelial Cells Few /hpf (<5) Urine Bacteria Few /hpf (None Seen) H Urine Mucus Few (None Seen) Urine Yeast (Budding) Many /hpf (None Seen) Urine Glucose Normal mg/dL (Normal) Blood Gas Results Test 09/07/24 22:31 09/08/24 07:33 Arterial Blood pH 7.270 (7.350-7.450) 7.243 (7.350-7.450) FiO2 % 45.0 45.0 Microbiology Microbiology Date/Time Source Procedure Growth Status 09/07/24 07:00 Nose MRSA Screen - Final Complete 09/06/24 09:55 Sputum Gram Stain - Final Resulted 09/06/24 09:55 Sputum Respiratory Culture - Preliminary Resulted Labs and/or images reviewed: Labs reviewed by me, Image(s) reviewed by me Assessment/Plan Assessment/Plan Impression: -metabolic encephalopathy -history of alcoholism -? Dementia -bilateral DVTs -liver cirrhosis -probable GI bleed with worsening anemia -hypoalbuminemia -acute kidney injury, hemodynamically mediated,? V MN -acute hypoxic respiratory failure -rule out aspiration pneumonia -shock, probable septic and hemorrhagic etiology -hypothermia Plan: Events: Patient continues to be unstable with vasopressors x4. Echocardiogram was performed with ejection fraction preliminary reading of 13%. Minimal urine output. -start Bumex drip -start Dobutrex at fixed dose of 2.5 micrograms/minute -sodium bicarbonate two amps IV push -CT head when stable -continue current vasopressor therapy. -Protonix 40 mg IV b.i.d. -NPO including medications -GI consultation -nephrology consultation -banana bag daily -potassium replacement -repeat CMP and CBC yet 1500 today -vent settings: AC 18, TV 400, +5, 50% -daily ABG, chest x-ray, CBC, CMP. Critical care time spent with patient discussing and formulating plan of care: 40 minutes. This does not include time spent performing procedures. This medical document was created using an electronic medical record system with [employer] dictation system. Although this document has been carefully reviewed, there may still be some phonetic and typographical errors. These areas are purely typographical due to imperfections of the software programs, and do not reflect any compromise in the patient's medical care. Plan discussed with: Patient, Other (RN) My Orders Orders - PAULINO HAMMER NP Procedure Category Date Status Time Gastric Occult Blood LAB 09/07/24 Logged 09:00 Stool Occult Blood LAB 09/07/24 Logged 09:00 Cvp Monitoring ED NURSING 09/07/24 Transmitted Thiamine Inj PHA 09/07/24 In Process 10:00 Folic Acid PHA 09/07/24 In Process 10:00 Dobutamine 1000mcg/Ml PHA 09/08/24 In Process (Dobutrex) 08:00 Potassium Chl PHA 09/08/24 In Process 20meq/100ml 08:00 Comprehensive LAB 09/08/24 Logged Metabolic Panel 07:50 Complete Blood Count LAB 09/09/24 Verified 04:00 Ammonia LAB 09/09/24 Verified 04:00 Albuterol Medneb PHA 09/08/24 Transmitted (Ventolin Medneb) 12:00 Ipratropium Medneb PHA 09/08/24 Transmitted (Atrovent Medneb) 12:00 Bumex Drip PHA 09/08/24 Transmitted 09:00 Date of Service: Sep 08, 2024 Billing Provider: PAULINO HAMMER NP Common Visit Codes: [id number] CARE 30-74 MIN PAULINO HAMMER NP Sep 08, 2024 09:03
[2024-09-08] MEDS: BUMETANIDE INJECTION 25 MG in GIVE UN-DILUTED 0 ML IV SCH (10:15)
[2024-09-08] MEDS: ALBUTEROL SULF 2.5 MG/0.5ML(0.5%) NEB SOLN NEB SCH (12:00)
[2024-09-08] MEDS: IPRATROPIUM BROM 0.5 MG/2.5ML INH SOL NEB SCH (12:00)
[2024-09-08] MEDS: IPRATROPIUM BROM 0.5 MG/2.5ML INH SOL ONE ×2 (12:23→12:28)
--- NOTE | 2024-09-08 12:46 | DVHSR ---
APPROVED REPORT EXAM: Two-dimensional and M-mode echocardiogram with Doppler and color Doppler. Blood Pressure: 95/55 mmHg INDICATION Shock RISK FACTORS Weight: 139 DIMENSIONS LVDd4.5 (3.8-5.7cm)LA (2D)3.2 (1.9-4.0cm)Aortic Root2.2 (2.0-3.7cm) LVDs4.2 (2.5-4.0cm)LA (MM) (1.9-4.0cm)Aortic Cusp Exc2.0 (1.5-2.0cm) EF (%) 13.0 (55-70%)Rt. Atrium3.5 (1.9-4.0cm)Asc. Aorta3.3 cm IVSd0.6 (0.7-1.1cm)RV (D)2.9 (1.8-2.4cm) PWd0.5 (0.7-1.1cm) Mitral Valve MitralMitral Stenosis E/A ratio0.02D MVAcm2 Aortic Valve Aortic ValveAortic Stenosis V10.62m/Karolyn Mean GR.1mmHg V20.72m/Karolyn Peak GR.2mmHg LVOT Diameter2.2 (1.8-2.4cm)Doppler AVA3.27cm2 Tricuspid Valve TR Velocity1.69m/s [id number] Other Information Quality : Technically LimitedRhythm : Technically limited study due to on vent. Conclusion severe global LV dysfunction LVEF 20% dilated LV RV dysfunction noted and enlargement marked left atrium enlarged pleural effusion noted mild to moderate mitral regurg (could be underestimated) at least moderate tricuspid regurg ascites suspected
[2024-09-08 13:56] LABS: Alanine Aminotransferase 32 U/L (7-40); Anion Gap 11 (5-15); Aspartate Aminotransferase 38 U/L (13-40); BUN/Creatinine Ratio 9.7 (10.0-20.0); Bilirubin, Total 1.2 mg/dL (0.2-1.0); Blood Urea Nitrogen 21 mg/dL (9-23); Potassium 3.8 mmol/L (3.5-5.1); Sodium 140 mmol/L (136-145)
[2024-09-08 14:00] LABS: Chloride 111 mmol/L (98-107)
[2024-09-08 14:01] LABS: Albumin 2.2 g/dL (3.2-4.8); Alkaline Phosphatase 392 U/L (46-116); Carbon Dioxide 18 mmol/L (20-31); Glucose 156 mg/dL (74-106); Total Protein 3.4 g/dL (5.7-8.2)
--- NOTE | 2024-09-08 14:53 | DVHPN2 ---
Progress Note Date Seen: Sep 08, 2024 Medical Necessity Reason Pt with a Central, PICC or Fol: Yes The following are medically ne: Central Line, Camacho Catheter Objective vital signs Vital Sign Date Time Temp Pulse Resp B/P (MAP) Pulse Ox O2 Delivery O2 Flow Rate FiO2 09/08/24 14:00 113 09/08/24 14:00 45 09/08/24 13:15 27 90/57 (68) 93 107/60 (76) 09/08/24 12:00 98.7 98.7 09/08/24 08:00 Mechanical Ventilator+ 09/06/24 07:30 0 Total Intake and Output 09/07/24 09/07/24 09/08/24 15:00 23:00 07:00 Intake Total 2148.2 ml 1977.377 ml 963.316 ml Output Total 100 ml 125 ml Balance 2148.2 ml 1877.377 ml 838.316 ml medications Current Medications Medications Dose Ordered Sig/Abebe Route Start Time Stop Time Status Last Admin Dose Admin Albuterol 2.5 mg Q2HPRN PRN NEB 09/05/24 11:00 Ondansetron HCl 4 mg Q4HP PRN IV 09/05/24 11:30 Acetaminophen 650 mg Q6HP PRN PO 09/05/24 11:30 Nitroglycerin 0.4 mg Q5MINP PRN SL 09/05/24 11:30 Morphine Sulfate 2 mg Q30M PRN IV 09/05/24 11:30 Magnesium Oxide 400 mg DAILY PO 09/06/24 10:00 Hold Midazolam HCl 50 ml @ 1 mls/hr Q24H IV 09/06/24 09:45 09/07/24 18:54 5 MLS/HR Vasopressin 20 units/Sodium Chloride 100 ml @ 9 mls/hr Q11H7M IV 09/06/24 09:45 09/08/24 10:17 9 MLS/HR Meropenem 50 ml @ 17 mls/hr Q12HR IV 09/06/24 22:00 09/08/24 09:29 17 MLS/HR Pantoprazole Sodium 40 mg BID IV 09/06/24 22:00 09/08/24 09:29 40 MG Thiamine HCl 100 mg DAILY IV 09/07/24 10:00 09/08/24 09:29 100 MG Folic Acid 1 mg/ Dextrose 50.2 ml @ 200.8 mls/ hr DAILY INJ 09/07/24 10:00 09/08/24 09:28 200.8 MLS/HR Phenylephrine HCl 80 mg/Sodium Chloride 250 ml @ 7.5 mls/hr Q24H IV 09/07/24 19:30 09/08/24 09:55 33.75 MLS/HR Norepinephrine Bitartrate 32 mg/ Sodium Chloride 250 ml @ 0.938 mls/ hr Q24H IV 09/07/24 19:30 09/08/24 12:20 14.063 MLS/HR Epinephrine HCl 16 mg/Dextrose 250 ml @ 1.875 mls/ hr Q24H IV 09/07/24 19:30 09/07/24 19:30 9.375 MLS/HR Dobutamine HCl/ Dextrose 250 ml @ 9.465 mls/ hr Q24H IV 09/08/24 08:00 09/08/24 08:25 9.465 MLS/HR Albuterol 2.5 mg Q6HR NEB 09/08/24 12:00 Ipratropium [place] 0.5 mg Q6HR NEB 09/08/24 12:00 Bumetanide 25 mg/ Miscellaneous 100 ml @ 4 mls/hr Q24H IV 09/08/24 09:00 09/08/24 10:15 4 MLS/HR Examination: GENERAL:Abnormal, LUNGS:Abnormal, CVS:Abnormal laboratory and microbiology Laboratory Tests 09/08/24 13:20 09/08/24 03:10 Test 09/08/24 13:20 Range/Units Serum Glucose 156 H 74-106 mg/dL Microbiology Date/Time Source Procedure Growth Status 09/07/24 07:00 Nose MRSA Screen - Final Complete 09/06/24 09:55 Sputum Gram Stain - Final Resulted 09/06/24 09:55 Respiratory Culture - Preliminary Klebsiella oxytoca Resulted Problem List/Assessment/Plan Problem List/Assessment/Plan Acute kidney injury hemodynamically mediated in setting of shock Cirrhosis with ascites History of CHF ef 25% Nonobstructing kidney stone Acute bilateral DVT Acute respiratory failure Anemia due to blood loss multiorgan failure shock hypocalcemia bumex drip currently replace potassium Recommend IV heparin Recommend pressors to keep mean arterial pressure greater than 65 Patient is critically ill, critical care time 33 minutes grim prognosis Plan discussed with: Other Dietary Evaluation Review Comments: 1) If GI is accessible consider Jevity 1.2 @ 35 ml/hr x 24hr goal rate as tolerated 2) If pt remains NPO >7 days consider TPN to meet at least 75% of estimated needs 3) Advance pt diet when medically feasible to a 2gm Sodium diet modified per [employer] recommendations Expected Outcomes/Goals: 1) Pt to receive nutrition support within 7 days of NPO status 2) Pt diet to advance 3) F/U in 2-3 days CC Plasma Assessment Blood Product Administration S: [id number] GRACIA BAY MD Sep 08, 2024 14:53
[2024-09-08] MEDS: CALCIUM GLUC 1,000mg/50ml-NS 50 ML IV SCH (15:16)
[2024-09-09] VITALS (108 sets, daily range): BP systolic 83–123; BP diastolic 47–93; PULSE 99–113; RESP 14–43; TEMP 97.4–98.4; O2SAT 91–100
[2024-09-09 04:18] LABS: Hemoglobin 9.3 g/dL (12.2-16.2); Mean Corpuscular Volume 100.7 fL (80.0-100.0)
[2024-09-09 04:20] LABS: Hematocrit 28.1 % (36.0-46.0); Mean Corpuscular Hemoglobin 33.2 pg (28.0-32.0); Platelet Count (auto) 25 10^3/uL (140-450); Red Blood Cells 2.79 10^6/uL (4.0-5.20)
[2024-09-09 04:31] LABS: Alanine Aminotransferase 33 U/L (7-40); Albumin 2.2 g/dL (3.2-4.8); Alkaline Phosphatase 467 U/L (46-116); Anion Gap 10 (5-15); Aspartate Aminotransferase 37 U/L (13-40); BUN/Creatinine Ratio 10.1 (10.0-20.0); Bilirubin, Total 1.3 mg/dL (0.2-1.0); Blood Urea Nitrogen 22 mg/dL (9-23); Calcium 6.3 mg/dL (8.7-10.4); Carbon Dioxide 19 mmol/L (20-31); Chloride 111 mmol/L (98-107); Glucose 133 mg/dL (74-106); Sodium 140 mmol/L (136-145); Total Protein 3.5 g/dL (5.7-8.2)
[2024-09-09 04:35] LABS: Red Cell Distribution Width 21.3 % (11.8-14.3)
[2024-09-09 04:36] LABS: Basophils % (manual) 0 (0.0-2.0); Blast Cells 0; Eosinophils % (manual) 0 (0-7); Myelocytes % 0; Promyelocytes % 0; Reactive Lymphocytes 0
--- NOTE | 2024-09-09 05:40 | DVH ---
CHEST RADIOGRAPH Indication: line placement, pna Technique: Single frontal view of the chest was obtained Comparison: XY CHEST PORTABLE on DOS: 09/08/24 FINDINGS: Lines and Tubes: Right central venous catheter terminates in the right atrium. The endotracheal tube terminates 3.1 cm above the maricarmen. The enteric tube terminates in the stomach. Lungs: Bilateral opacities similar to prior study. Pleura: Bilateral pleural effusions similar to prior study. No pneumothorax. Cardiomediastinal contours: Stable cardiovascular silhouette. Bones: No acute osseous abnormality. IMPRESSION: 1. No significant interval change.
[2024-09-09 06:51] LABS: Anisocytosis Slight; Band Neutrophils % (manual) 22; Lymphocytes % (manual) 4 (10.0-50.0); Macrocytosis Slight; Metamyelocytes % 1; Monocytes % (manual) 7 (0-12)
[2024-09-09 06:52] LABS: Platelet Estimate Markedly Decreased
[2024-09-09 06:53] LABS: Stomatocytes Few; Target Cell FEW
[2024-09-09 09:02] LABS: Base Excess -8.8 mmol/L (-2.0-3.0)
--- NOTE | 2024-09-09 09:30 | DVHPN2 ---
Subjective Patient intubated and sedated Reviewed: Care Plan, H&P, Labs, Medications Changes from previous H/P or p: No Changes General: Per HPI Cardiovascular: Edema (3+ pitting edema to bilateral lower extremity) Respiratory: Dry Musculoskeletal: leg pain (Bilateral lower extremity) Skin: Bruising Objective Vitals Vital Signs Date Time Temp Pulse Resp B/P (MAP) Pulse Ox O2 Delivery O2 Flow Rate FiO2 09/09/24 08:32 104/57 09/09/24 07:00 109 23 09/09/24 06:14 96 40 09/09/24 04:00 98.4 98.4 09/08/24 20:00 Mechanical Ventilator+ Intake/Output Intake and Output 09/09/24 07:00 Intake Total 2158.0 ml Output Total 600 ml Balance 1558.0 ml Intake Oral 0 ml IV Total 2158.0 ml Output Urine Total 600 ml Stool Total 0 ml General Appearance: severe distress, Other (Encephalopathic) HEENT: Other (Sclerae icteric) Lungs: Other Cardiovascular: Normal S1, Normal S2 Abdomen: Normal bowel sounds, Soft, No tenderness Genitourinary: No Apparent Abnormalities (Camacho catheter) Musculoskeletal: Normal sensory function Skin: Dry, Intact Psych/Mental Status: Other (Altered mental status) Medications Current Medications Medications Dose Ordered Sig/Abebe Route Start Time Stop Time Status Last Admin Dose Admin Albuterol 2.5 mg Q2HPRN PRN NEB 09/05/24 11:00 Ondansetron HCl 4 mg Q4HP PRN IV 09/05/24 11:30 Acetaminophen 650 mg Q6HP PRN PO 09/05/24 11:30 Nitroglycerin 0.4 mg Q5MINP PRN SL 09/05/24 11:30 Morphine Sulfate 2 mg Q30M PRN IV 09/05/24 11:30 Magnesium Oxide 400 mg DAILY PO 09/06/24 10:00 Hold Midazolam HCl 50 ml @ 1 mls/hr Q24H IV 09/06/24 09:45 09/07/24 18:54 5 MLS/HR Vasopressin 20 units/Sodium Chloride 100 ml @ 9 mls/hr Q11H7M IV 09/06/24 09:45 09/08/24 22:16 9 MLS/HR Meropenem 50 ml @ 17 mls/hr Q12HR IV 09/06/24 22:00 09/08/24 22:11 17 MLS/HR Pantoprazole Sodium 40 mg BID IV 09/06/24 22:00 09/08/24 22:10 40 MG Thiamine HCl 100 mg DAILY IV 09/07/24 10:00 09/08/24 09:29 100 MG Folic Acid 1 mg/ Dextrose 50.2 ml @ 200.8 mls/ hr DAILY INJ 09/07/24 10:00 09/08/24 09:28 200.8 MLS/HR Phenylephrine HCl 80 mg/Sodium Chloride 250 ml @ 7.5 mls/hr Q24H IV 09/07/24 19:30 09/09/24 08:34 33.75 MLS/HR Norepinephrine Bitartrate 32 mg/ Sodium Chloride 250 ml @ 0.938 mls/ hr Q24H IV 09/07/24 19:30 09/09/24 06:02 14.063 MLS/HR Epinephrine HCl 16 mg/Dextrose 250 ml @ 1.875 mls/ hr Q24H IV 09/07/24 19:30 09/07/24 19:30 9.375 MLS/HR Dobutamine HCl/ Dextrose 250 ml @ 9.465 mls/ hr Q24H IV 09/08/24 08:00 09/09/24 08:32 9.465 MLS/HR Albuterol 2.5 mg Q6HR NEB 09/08/24 12:00 09/09/24 06:14 2.5 MG Ipratropium [place] 0.5 mg Q6HR NEB 09/08/24 12:00 09/09/24 06:14 0.5 MG Bumetanide 25 mg/ Miscellaneous 100 ml @ 4 mls/hr Q24H IV 09/08/24 09:00 09/09/24 03:51 4 MLS/HR Laboratory Results Laboratory Tests 09/09/24 03:50 Chemistry Test 09/08/24 13:20 09/09/24 03:50 Albumin 2.2 g/dL (3.2-4.8) L 2.2 g/dL (3.2-4.8) L Calcium Level 6.0 mg/dL (8.7-10.4) *L 6.3 mg/dL (8.7-10.4) L Total Protein 3.4 g/dL (5.7-8.2) L 3.5 g/dL (5.7-8.2) L LFT Test 09/08/24 13:20 09/09/24 03:50 Alanine Aminotransferase (ALT) 32 U/L (7-40) 33 U/L (7-40) Alkaline Phosphatase 392 U/L (46-116) H 467 U/L (46-116) H Aspartate Amino Transferase (AST) 38 U/L (13-40) 37 U/L (13-40) Total Bilirubin 1.2 mg/dL (0.2-1.0) H 1.3 mg/dL (0.2-1.0) H Urinalysis Test 09/08/24 05:05 Urine Color Yellow (Yellow) Urine Clarity Turbid (Clear) H Urine pH 6.0 (5.0-9.0) Urine Specific [place] 1.009 (1.001-1.035) Urine Protein 1+ (Negative) H Urine Ketones Negative (Negative) Urine Blood 1+ /uL (Negative) H Urine Nitrite Negative (Negative) Urine Bilirubin Negative (Negative) Urine Urobilinogen Normal mg/dL (Negative) Urine Leukocyte Esterase 3+ /uL (Negative) Urine RBC 17 /hpf (0 - 4) Urine WBC 25 /hpf (0 - 5) Urine Squamous Epithelial Cells Few /hpf (<5) Urine Bacteria Few /hpf (None Seen) H Urine Mucus Few (None Seen) Urine Yeast (Budding) Many /hpf (None Seen) Urine Glucose Normal mg/dL (Normal) Blood Gas Results Test 09/09/24 07:46 Arterial Blood pH 7.265 (7.350-7.450) FiO2 % 40.0 Microbiology Microbiology Date/Time Source Procedure Growth Status 09/08/24 05:05 Urine - Catheterized Urine Culture - Preliminary Resulted 09/07/24 07:00 Nose MRSA Screen - Final Complete 09/06/24 09:55 Sputum Gram Stain - Final Resulted 09/06/24 09:55 Respiratory Culture - Preliminary Klebsiella oxytoca Yeast, not Basia albicans Resulted Labs and/or images reviewed: Labs reviewed by me, Image(s) reviewed by me Assessment/Plan Assessment/Plan Impression: -metabolic encephalopathy -history of alcoholism -? Dementia -bilateral DVTs -liver cirrhosis -probable GI bleed with worsening anemia -hypoalbuminemia -acute kidney injury, hemodynamically mediated,? V MN -acute hypoxic respiratory failure -rule out aspiration pneumonia -shock, probable septic and hemorrhagic etiology -hypothermia Plan: Events: Patient had improvement with urine output. Continues to have generalized edema. No active bleeding from NG tube. H&H stable. Start tube feeds -continue Bumex drip -continue Dobutrex at fixed dose of 2.5 micrograms/minute -CT head when stable -continue current vasopressor therapy. Wean phenylephrine at possible -Protonix 40 mg IV b.i.d. -GI consultation -nephrology consultation -start tube feeds -potassium replacement -continue current ventilator settings -daily ABG, chest x-ray, CBC, CMP. Critical care time spent with patient discussing and formulating plan of care: 40 minutes. This does not include time spent performing procedures. This medical document was created using an electronic medical record system with [employer] system. Although this document has been carefully reviewed, there may still be some phonetic and typographical errors. These areas are purely typographical due to imperfections of the software programs, and do not reflect any compromise in the patient's medical care. Plan discussed with: Patient, Other (RN) My Orders Orders - PAULINO HAMMER NP Procedure Category Date Status Time Nutritional PHA 09/09/24 Verified Supplements (Nepro 09:30 Multiple Vitamin PHA 09/09/24 Verified Tablet (Mvi Tab) 10:00 Thiamine Tab PHA 09/09/24 Verified 10:00 Comprehensive LAB 09/10/24 Verified Metabolic Panel 05:00 Comprehensive LAB 09/11/24 Verified Metabolic Panel 05:00 Comprehensive LAB 09/12/24 Verified Metabolic Panel 05:00 Complete Blood Count LAB 09/10/24 Verified 05:00 Complete Blood Count LAB 09/11/24 Verified 05:00 Complete Blood Count LAB 09/12/24 Verified 05:00 Date of Service: Sep 09, 2024 Billing Provider: PAULINO HAMMER NP Common Visit Codes: [id number] CARE 30-74 MIN PAULINO HAMMER NP Sep 09, 2024 09:30
[2024-09-09] MEDS: THIAMINE HCL 100 MG TAB PO SCH (10:28)
[2024-09-09] MEDS: MULTIPLE VITAMIN TAB PO SCH (10:28)
[2024-09-09] MEDS: Nepro With Carb Steady 1 Liter Bottle GT SCH (15:14)
--- NOTE | 2024-09-09 16:16 | DVHPN2 ---
Progress Note Date Seen: Sep 09, 2024 Medical Necessity Reason Pt with a Central, PICC or Fol: Yes The following are medically ne: Central Line, Camacho Catheter Subjective Patient reports: Feels worse Review of Systems: CVS:Abnormal, RESPIRATORY:Abnormal Objective vital signs Vital Sign Date Time Temp Pulse Resp B/P (MAP) Pulse Ox O2 Delivery O2 Flow Rate FiO2 09/09/24 15:57 103 09/09/24 15:45 97.5 18 99/54 (69) 97 97.5 09/09/24 14:00 40 09/09/24 08:00 Mechanical Ventilator+ Total Intake and Output 09/08/24 09/08/24 09/09/24 15:00 23:00 07:00 Intake Total 813.2 ml 739.5 ml 675.45 ml Output Total 250 ml 350 ml Balance 813.2 ml 489.5 ml 325.45 ml medications Current Medications Medications Dose Ordered Sig/Abebe Route Start Time Stop Time Status Last Admin Dose Admin Albuterol 2.5 mg Q2HPRN PRN NEB 09/05/24 11:00 Ondansetron HCl 4 mg Q4HP PRN IV 09/05/24 11:30 Acetaminophen 650 mg Q6HP PRN PO 09/05/24 11:30 Nitroglycerin 0.4 mg Q5MINP PRN SL 09/05/24 11:30 Morphine Sulfate 2 mg Q30M PRN IV 09/05/24 11:30 Magnesium Oxide 400 mg DAILY PO 09/06/24 10:00 Hold Midazolam HCl 50 ml @ 1 mls/hr Q24H IV 09/06/24 09:45 09/07/24 18:54 5 MLS/HR Vasopressin 20 units/Sodium Chloride 100 ml @ 9 mls/hr Q11H7M IV 09/06/24 09:45 09/09/24 09:41 9 MLS/HR Meropenem 50 ml @ 17 mls/hr Q12HR IV 09/06/24 22:00 09/09/24 10:30 17 MLS/HR Pantoprazole Sodium 40 mg BID IV 09/06/24 22:00 09/09/24 10:28 40 MG Phenylephrine HCl 80 mg/Sodium Chloride 250 ml @ 7.5 mls/hr Q24H IV 09/07/24 19:30 09/09/24 08:34 33.75 MLS/HR Norepinephrine Bitartrate 32 mg/ Sodium Chloride 250 ml @ 0.938 mls/ hr Q24H IV 09/07/24 19:30 09/09/24 06:02 14.063 MLS/HR Epinephrine HCl 16 mg/Dextrose 250 ml @ 1.875 mls/ hr Q24H IV 09/07/24 19:30 09/07/24 19:30 9.375 MLS/HR Dobutamine HCl/ Dextrose 250 ml @ 9.465 mls/ hr Q24H IV 09/08/24 08:00 09/09/24 08:32 9.465 MLS/HR Albuterol 2.5 mg Q6HR NEB 09/08/24 12:00 09/09/24 12:05 2.5 MG Ipratropium [place] 0.5 mg Q6HR NEB 09/08/24 12:00 09/09/24 12:05 0.5 MG Bumetanide 25 mg/ Miscellaneous 100 ml @ 4 mls/hr Q24H IV 09/08/24 09:00 09/09/24 03:51 4 MLS/HR Enteral Nutritional Formula 1,000 ml 30ML/HR GT 09/09/24 09:30 09/09/24 15:14 1,000 ML Multivitamins 1 tab DAILY PO 09/09/24 10:00 09/09/24 10:28 1 TAB Thiamine HCl 100 mg DAILY PO 09/09/24 10:00 09/09/24 10:28 100 MG Examination: GENERAL:Abnormal, LUNGS:Abnormal, CVS:Abnormal, ABDOMEN:Abnormal laboratory and microbiology Laboratory Tests 09/09/24 03:50 Test 09/09/24 03:50 Range/Units Serum Glucose 133 H 74-106 mg/dL Microbiology Date/Time Source Procedure Growth Status 09/08/24 05:05 Urine - Catheterized Urine Culture - Preliminary Resulted 09/07/24 07:00 Nose MRSA Screen - Final Complete 09/06/24 09:55 Sputum Gram Stain - Final Resulted 09/06/24 09:55 Respiratory Culture - Preliminary Klebsiella oxytoca Yeast, not Basia albicans Resulted Problem List/Assessment/Plan Problem List/Assessment/Plan Acute kidney injury hemodynamically mediated in setting of shock Cirrhosis with ascites History of CHF ef 25% Nonobstructing kidney stone Acute bilateral DVT Acute respiratory failure Anemia due to blood loss multiorgan failure shock hypocalcemia bumex drip currently on max dose, remains very swollen max on 5 pressors on multiple pressors with low BP electrolytes replacement IV heparin Recommend pressors to keep mean arterial pressure greater than 65 not candidate for retirement dialysis and remains unstable for acute HD Patient is critically ill, critical care time 33 minutes grim prognosis Plan discussed with: Other Dietary Evaluation Review Comments: 1) If GI is accessible consider Jevity 1.2 @ 35 ml/hr x 24hr goal rate as tolerated 2) If pt remains NPO >7 days consider TPN to meet at least 75% of estimated needs 3) Advance pt diet when medically feasible to a 2gm Sodium diet modified per [employer] recommendations Expected Outcomes/Goals: 1) Pt to receive nutrition support within 7 days of NPO status 2) Pt diet to advance 3) F/U in 2-3 days CC Plasma Assessment Blood Product Administration S: [id number] GRACIA BAY MD Sep 09, 2024 16:16
[2024-09-10] VITALS (107 sets, daily range): BP systolic 86–115; BP diastolic 49–72; PULSE 96–105; RESP 11–41; TEMP 97.4–97.6; O2SAT 95–100
[2024-09-10 03:56] LABS: Basophils # (auto) 0 10 ^3/uL (0-0.2); Hemoglobin 9.5 g/dL (12.2-16.2); White Blood Cell 13.1 10^3/uL (4.4-10.8)
[2024-09-10 04:02] LABS: Basophils % (auto) 0.4 % (0.0-2.0); Eosinophils # (auto) 0 10 ^3/uL (0-0.8); Eosinophils % (auto) 0.1 % (0.0-7.0); Hematocrit 28.8 % (36.0-46.0); Lymphocytes # (auto) 0.9 10 ^3/uL (0.4-5.4); Lymphocytes % (auto) 7.1 % (10.0-50.0); Mean Corpuscular Hemoglobin 32.9 pg (28.0-32.0); Mean Corpuscular Hgb Conc. 32.8 g/dL (32.0-36.0); Mean Corpuscular Volume 100.1 fL (80.0-100.0); Monocytes # (auto) 0.2 10 ^3/uL (0-1.3); Monocytes % (auto) 1.3 % (0.0-12.0); Neutrophils # (auto) 11.9 10 ^3/uL (1.6-8.6); Neutrophils % (auto) 91.1 % (37.0-80.0); Nucleated Red Blood Cells % 2.6 %; Red Blood Cells 2.88 10^6/uL (4.0-5.20)
[2024-09-10 04:09] LABS: Alanine Aminotransferase 32 U/L (7-40); Anion Gap 12 (5-15); BUN/Creatinine Ratio 10.7 (10.0-20.0); Potassium 3.6 mmol/L (3.5-5.1); Sodium 140 mmol/L (136-145)
[2024-09-10 04:21] LABS: Alkaline Phosphatase 474 U/L (46-116); Aspartate Aminotransferase 41 U/L (13-40); Bilirubin, Total 1.4 mg/dL (0.2-1.0); Blood Urea Nitrogen 23 mg/dL (9-23); Calcium 6.4 mg/dL (8.7-10.4); Carbon Dioxide 17 mmol/L (20-31); Chloride 111 mmol/L (98-107); Glucose 144 mg/dL (74-106); Total Protein 3.4 g/dL (5.7-8.2)
[2024-09-10 04:42] LABS: Red Cell Distribution Width 21.5 % (11.8-14.3)
[2024-09-10 05:01] LABS: Platelet Count (auto) 29 10^3/uL (140-450)
[2024-09-10 05:02] LABS: Large Platelets FEW; Platelet Estimate Decrea
--- NOTE | 2024-09-10 06:16 | DVH ---
CHEST RADIOGRAPH Indication: INTUBATED Technique: Single frontal view of the chest was obtained Comparison: XY CHEST PORTABLE on DOS: 09/09/24, XY CHEST PORTABLE on DOS: 09/08/24, XY CHEST PORTABLE o n DOS: 09/07/24, XY CHEST XRAY 1 VIEW on DOS: 09/06/24, XY CHEST XRAY 1 VIEW on DOS: 09/05/24, XY CHEST PORTABLE on DOS: 09/09/24 FINDINGS: Lines and Tubes: Right central venous catheter terminates in the right atrium. The endotracheal tube terminates 3.1 cm above the maricarmen. The enteric tube terminates in the stomach. Lungs: Bilateral opacities similar to prior study. Pleura: Bilateral pleural effusions similar to prior study. No pneumothorax. Cardiomediastinal contours: Stable cardiovascular silhouette. Bones: No acute osseous abnormality. IMPRESSION: 1. No significant interval change.
[2024-09-10 07:55] LABS: Base Excess -10.2 mmol/L (-2.0-3.0)
--- NOTE | 2024-09-10 08:41 | DVHPN2 ---
Subjective Patient intubated and sedated Reviewed: Care Plan, H&P, Labs, Medications Changes from previous H/P or p: No Changes General: Per HPI Cardiovascular: Edema (3+ pitting edema to bilateral lower extremity) Respiratory: Dry Musculoskeletal: leg pain (Bilateral lower extremity) Skin: Bruising Objective Vitals Vital Signs Date Time Temp Pulse Resp B/P (MAP) Pulse Ox O2 Delivery O2 Flow Rate FiO2 09/10/24 07:00 97 18 98/52 (67) 99 40 09/10/24 04:00 97.5 97.5 09/09/24 20:00 Mechanical Ventilator+ Intake/Output Intake and Output 09/10/24 07:00 Intake Total 1621.015 ml Output Total 375 ml Balance 1246.015 ml Intake Oral 50 ml IV Total 1403.015 ml Tube Feeding 168 ml Output Urine Total 375 ml Stool Total 0 ml General Appearance: severe distress, Other (Encephalopathic) HEENT: Other (Sclerae icteric) Lungs: Other Cardiovascular: Normal S1, Normal S2 Abdomen: Normal bowel sounds, Soft, No tenderness Genitourinary: No Apparent Abnormalities (Camacho catheter) Musculoskeletal: Normal sensory function Skin: Dry, Intact Psych/Mental Status: Other (Altered mental status) Medications Current Medications Medications Dose Ordered Sig/Abebe Route Start Time Stop Time Status Last Admin Dose Admin Albuterol 2.5 mg Q2HPRN PRN NEB 09/05/24 11:00 Ondansetron HCl 4 mg Q4HP PRN IV 09/05/24 11:30 Acetaminophen 650 mg Q6HP PRN PO 09/05/24 11:30 Nitroglycerin 0.4 mg Q5MINP PRN SL 09/05/24 11:30 Morphine Sulfate 2 mg Q30M PRN IV 09/05/24 11:30 Magnesium Oxide 400 mg DAILY PO 09/06/24 10:00 Hold Midazolam HCl 50 ml @ 1 mls/hr Q24H IV 09/06/24 09:45 09/07/24 18:54 5 MLS/HR Vasopressin 20 units/Sodium Chloride 100 ml @ 9 mls/hr Q11H7M IV 09/06/24 09:45 09/10/24 03:53 9 MLS/HR Meropenem 50 ml @ 17 mls/hr Q12HR IV 09/06/24 22:00 09/09/24 21:45 17 MLS/HR Pantoprazole Sodium 40 mg BID IV 09/06/24 22:00 09/09/24 21:47 40 MG Phenylephrine HCl 80 mg/Sodium Chloride 250 ml @ 7.5 mls/hr Q24H IV 09/07/24 19:30 09/09/24 22:46 10.313 MLS/HR Norepinephrine Bitartrate 32 mg/ Sodium Chloride 250 ml @ 0.938 mls/ hr Q24H IV 09/07/24 19:30 09/09/24 16:53 14.063 MLS/HR Epinephrine HCl 16 mg/Dextrose 250 ml @ 1.875 mls/ hr Q24H IV 09/07/24 19:30 09/09/24 17:00 9.375 MLS/HR Dobutamine HCl/ Dextrose 250 ml @ 9.465 mls/ hr Q24H IV 09/08/24 08:00 09/09/24 08:32 9.465 MLS/HR Albuterol 2.5 mg Q6HR NEB 09/08/24 12:00 09/10/24 07:00 2.5 MG Ipratropium [place] 0.5 mg Q6HR NEB 09/08/24 12:00 09/10/24 07:00 0.5 MG Bumetanide 25 mg/ Miscellaneous 100 ml @ 4 mls/hr Q24H IV 09/08/24 09:00 09/10/24 04:44 4 MLS/HR Enteral Nutritional Formula 1,000 ml 30ML/HR GT 09/09/24 09:30 09/09/24 15:14 1,000 ML Multivitamins 1 tab DAILY PO 09/09/24 10:00 09/09/24 10:28 1 TAB Thiamine HCl 100 mg DAILY PO 09/09/24 10:00 09/09/24 10:28 100 MG Micafungin Sodium 100 mg/Sodium Chloride 100 ml @ 100 mls/hr DAILY IV 09/10/24 10:00 Metoclopramide HCl 5 mg Q8HR GT 09/10/24 14:00 Laboratory Results Laboratory Tests 09/10/24 03:23 Chemistry Test 09/10/24 03:23 Albumin 2.0 g/dL (3.2-4.8) L Calcium Level 6.4 mg/dL (8.7-10.4) L Total Protein 3.4 g/dL (5.7-8.2) L LFT Test 09/10/24 03:23 Alanine Aminotransferase (ALT) 32 U/L (7-40) Alkaline Phosphatase 474 U/L (46-116) H Aspartate Amino Transferase (AST) 41 U/L (13-40) H Total Bilirubin 1.4 mg/dL (0.2-1.0) H Urinalysis Test 09/08/24 05:05 Urine Color Yellow (Yellow) Urine Clarity Turbid (Clear) H Urine pH 6.0 (5.0-9.0) Urine Specific [place] 1.009 (1.001-1.035) Urine Protein 1+ (Negative) H Urine Ketones Negative (Negative) Urine Blood 1+ /uL (Negative) H Urine Nitrite Negative (Negative) Urine Bilirubin Negative (Negative) Urine Urobilinogen Normal mg/dL (Negative) Urine Leukocyte Esterase 3+ /uL (Negative) Urine RBC 17 /hpf (0 - 4) Urine WBC 25 /hpf (0 - 5) Urine Squamous Epithelial Cells Few /hpf (<5) Urine Bacteria Few /hpf (None Seen) H Urine Mucus Few (None Seen) Urine Yeast (Budding) Many /hpf (None Seen) Urine Glucose Normal mg/dL (Normal) Blood Gas Results Test 09/10/24 07:37 Arterial Blood pH 7.236 (7.350-7.450) FiO2 % 40.0 Microbiology Microbiology Date/Time Source Procedure Growth Status 09/08/24 05:05 Urine - Catheterized Urine Culture - Preliminary Resulted 09/07/24 07:00 Nose MRSA Screen - Final Complete 09/06/24 09:55 Sputum Gram Stain - Final Resulted 09/06/24 09:55 Respiratory Culture - Preliminary Klebsiella oxytoca Yeast, not Basia albicans Resulted Labs and/or images reviewed: Labs reviewed by me, Image(s) reviewed by me Assessment/Plan Assessment/Plan Impression: -metabolic encephalopathy -history of alcoholism -? Dementia -bilateral DVTs -liver cirrhosis -probable GI bleed with worsening anemia -hypoalbuminemia -acute kidney injury, hemodynamically mediated,? V MN -acute hypoxic respiratory failure -rule out aspiration pneumonia -shock, probable septic and hemorrhagic etiology -hypothermia Plan: Events: No events overnight. Phenylephrine is being weaned. -continue Bumex drip -continue Dobutrex at fixed dose of 2.5 micrograms/minute -CT head when stable -continue current vasopressor therapy. Wean phenylephrine if possible -Protonix 40 mg IV b.i.d. -GI consultation -nephrology consultation -continue tube feeds with bowel regimen -potassium replacement -continue current ventilator settings: Increase respiratory rate 20 -daily ABG, chest x-ray, CBC, CMP. Critical care time spent with patient discussing and formulating plan of care: 40 minutes. This does not include time spent performing procedures. This medical document was created using an electronic medical record system with [employer] dictation system. Although this document has been carefully reviewed, there may still be some phonetic and typographical errors. These areas are purely typographical due to imperfections of the software programs, and do not reflect any compromise in the patient's medical care. Plan discussed with: Patient, Other (Rn) My Orders Orders - PAULINO HAMMER NP Procedure Category Date Status Time Nutritional PHA 09/09/24 In Process Supplements (Nepro 09:30 Multiple Vitamin PHA 09/09/24 In Process Tablet (Mvi Tab) 10:00 Thiamine Tab PHA 09/09/24 In Process 10:00 Comprehensive LAB 09/11/24 Verified Metabolic Panel 05:00 Comprehensive LAB 09/12/24 Verified Metabolic Panel 05:00 Complete Blood Count LAB 09/11/24 Verified 05:00 Complete Blood Count LAB 09/12/24 Verified 05:00 Chest Portable XY 09/10/24 Resulted 04:00 Abg W/ Co-Ox RT 09/10/24 Logged 06:00 Micafungin Sodium PHA 09/10/24 In Process (Mycamine) 10:00 Ventilator Orders RT 09/10/24 Transmitted 07:12 Metoclopramide Oral PHA 09/10/24 In Process Soln (Reglan Oral So 14:00 Abg W/ Co-Ox RT 09/11/24 Logged 05:00 Abg W/ Co-Ox RT 09/12/24 Logged 05:00 Abg W/ Co-Ox RT 09/13/24 Logged 05:00 Chest Portable XY 09/11/24 Logged 05:00 Chest Portable XY 09/12/24 Logged 05:00 Chest Portable XY 09/13/24 Logged 05:00 Date of Service: Sep 10, 2024 Billing Provider: PAULINO HAMMER NP Common Visit Codes: [id number]/OBS DISCH DAY >30min, [id number] CARE 30-74 MIN PAULINO HAMMER NP Sep 10, 2024 08:41
[2024-09-10] MEDS: SODIUM BICARB 8.4% 50Meq/50ml SYR Vial IV ONE (09:01)
[2024-09-10] MEDS: POTASSIUM EFFERVESENT TAB 25 MEQ PO ONE (09:02)
[2024-09-10] MEDS: MICAFUNGIN SODIUM 100 MG in SODIUM CHL 0.9% 100 ML IV SCH (11:20)
[2024-09-10] MEDS: METOCLOPRAMIDE 10 mg/10ml ORAL soln GT SCH (13:42)
--- NOTE | 2024-09-10 20:12 | DVHPN2 ---
Progress Note Date Seen: Sep 10, 2024 Medical Necessity Reason Pt with a Central, PICC or Fol: Yes The following are medically ne: Central Line, Camacho Catheter Subjective Patient reports: Other Review of Systems: Deferred Objective vital signs Vital Sign Date Time Temp Pulse Resp B/P (MAP) Pulse Ox O2 Delivery O2 Flow Rate FiO2 09/10/24 19:59 101 20 105/71 (82) 100 40 09/10/24 16:00 97.4 97.4 09/10/24 08:00 Mechanical Ventilator+ Total Intake and Output 09/09/24 09/09/24 09/10/24 15:00 23:00 07:00 Intake Total 544.09 ml 580.665 ml 557.160 ml Output Total 275 ml 100 ml Balance 544.09 ml 305.665 ml 457.160 ml medications Current Medications Medications Dose Ordered Sig/Abebe Route Start Time Stop Time Status Last Admin Dose Admin Albuterol 2.5 mg Q2HPRN PRN NEB 09/05/24 11:00 Ondansetron HCl 4 mg Q4HP PRN IV 09/05/24 11:30 Acetaminophen 650 mg Q6HP PRN PO 09/05/24 11:30 Nitroglycerin 0.4 mg Q5MINP PRN SL 09/05/24 11:30 Morphine Sulfate 2 mg Q30M PRN IV 09/05/24 11:30 Magnesium Oxide 400 mg DAILY PO 09/06/24 10:00 Hold Midazolam HCl 50 ml @ 1 mls/hr Q24H IV 09/06/24 09:45 09/07/24 18:54 5 MLS/HR Vasopressin 20 units/Sodium Chloride 100 ml @ 9 mls/hr Q11H7M IV 09/06/24 09:45 09/10/24 15:07 9 MLS/HR Meropenem 50 ml @ 17 mls/hr Q12HR IV 09/06/24 22:00 09/10/24 10:26 17 MLS/HR Pantoprazole Sodium 40 mg BID IV 09/06/24 22:00 09/10/24 10:26 40 MG Phenylephrine HCl 80 mg/Sodium Chloride 250 ml @ 7.5 mls/hr Q24H IV 09/07/24 19:30 09/10/24 12:22 15 MLS/HR Norepinephrine Bitartrate 32 mg/ Sodium Chloride 250 ml @ 0.938 mls/ hr Q24H IV 09/07/24 19:30 09/10/24 11:22 14.063 MLS/HR Epinephrine HCl 16 mg/Dextrose 250 ml @ 1.875 mls/ hr Q24H IV 09/07/24 19:30 09/09/24 17:00 9.375 MLS/HR Dobutamine HCl/ Dextrose 250 ml @ 9.465 mls/ hr Q24H IV 09/08/24 08:00 09/10/24 09:13 9.465 MLS/HR Albuterol 2.5 mg Q6HR NEB 09/08/24 12:00 09/10/24 18:19 2.5 MG Ipratropium [place] 0.5 mg Q6HR NEB 09/08/24 12:00 09/10/24 18:20 0.5 MG Bumetanide 25 mg/ Miscellaneous 100 ml @ 4 mls/hr Q24H IV 09/08/24 09:00 09/10/24 04:44 4 MLS/HR Enteral Nutritional Formula 1,000 ml 30ML/HR GT 09/09/24 09:30 09/09/24 15:14 1,000 ML Multivitamins 1 tab DAILY PO 09/09/24 10:00 09/10/24 10:27 1 TAB Thiamine HCl 100 mg DAILY PO 09/09/24 10:00 09/10/24 10:27 100 MG Micafungin Sodium 100 mg/Sodium Chloride 100 ml @ 100 mls/hr DAILY IV 09/10/24 10:00 09/10/24 11:20 100 MLS/HR Metoclopramide HCl 5 mg Q8HR GT 09/10/24 14:00 09/10/24 13:42 5 MG Examination: MSK:Abnormal, NEURO:Abnormal laboratory and microbiology Laboratory Tests 09/10/24 03:23 Test 09/10/24 03:23 Range/Units Serum Glucose 144 H 74-106 mg/dL Microbiology Date/Time Source Procedure Growth Status 09/08/24 05:05 Urine - Catheterized Urine Culture - Preliminary Citrobacter koseri Resulted 09/07/24 07:00 Nose MRSA Screen - Final Complete 09/06/24 09:55 Sputum Gram Stain - Final Resulted 09/06/24 09:55 Respiratory Culture - Preliminary Klebsiella oxytoca Yeast, not Basia albicans Resulted Problem List/Assessment/Plan Problem List/Assessment/Plan Acute kidney injury hemodynamically mediated in setting of shock Cirrhosis with ascites History of CHF ef 25% Nonobstructing kidney stone Acute bilateral DVT Acute respiratory failure Anemia due to blood loss multiorgan failure shock hypocalcemia bumex drip max on 5 pressors on multiple pressors with low BP will f/u Plan discussed with: Patient Dietary Evaluation Review Comments: 1) If GI is accessible consider Jevity 1.2 @ 35 ml/hr x 24hr goal rate as tolerated 2) If pt remains NPO >7 days consider TPN to meet at least 75% of estimated needs 3) Advance pt diet when medically feasible to a 2gm Sodium diet modified per [employer] recommendations Expected Outcomes/Goals: 1) Pt to receive nutrition support within 7 days of NPO status 2) Pt diet to advance 3) F/U in 2-3 days CC Plasma Assessment Blood Product Administration S: [id number] EDEN DELEON MD Sep 10, 2024 20:12
[2024-09-11] VITALS (109 sets, daily range): BP systolic 92–118; BP diastolic 55–77; PULSE 100–113; RESP 16–45; TEMP 97.5–98.8; O2SAT 92–100
[2024-09-11 04:33] LABS: Basophils # (auto) 0 10 ^3/uL (0-0.2); Basophils % (auto) 0.1 % (0.0-2.0); Eosinophils # (auto) 0 10 ^3/uL (0-0.8); Hemoglobin 9.8 g/dL (12.2-16.2); Monocytes # (auto) 0.3 10 ^3/uL (0-1.3); Neutrophils # (auto) 9.4 10 ^3/uL (1.6-8.6)
[2024-09-11 04:37] LABS: Eosinophils % (auto) 0.4 % (0.0-7.0); Hematocrit 29.6 % (36.0-46.0); Lymphocytes # (auto) 0.9 10 ^3/uL (0.4-5.4); Lymphocytes % (auto) 8.8 % (10.0-50.0); Mean Corpuscular Hgb Conc. 33.2 g/dL (32.0-36.0); Mean Corpuscular Volume 99.4 fL (80.0-100.0); Monocytes % (auto) 2.8 % (0.0-12.0); Neutrophils % (auto) 87.9 % (37.0-80.0); Red Blood Cells 2.98 10^6/uL (4.0-5.20); Red Cell Distribution Width 21.2 % (11.8-14.3); White Blood Cell 10.7 10^3/uL (4.4-10.8)
[2024-09-11 04:46] LABS: Alanine Aminotransferase 35 U/L (7-40); Anion Gap 10 (5-15); BUN/Creatinine Ratio 11.6 (10.0-20.0); Potassium 4.1 mmol/L (3.5-5.1); Sodium 138 mmol/L (136-145)
[2024-09-11 04:53] LABS: Albumin 2.1 g/dL (3.2-4.8); Alkaline Phosphatase 670 U/L (46-116); Aspartate Aminotransferase 60 U/L (13-40); Bilirubin, Total 1.6 mg/dL (0.2-1.0); Blood Urea Nitrogen 25 mg/dL (9-23); Calcium 6.7 mg/dL (8.7-10.4); Carbon Dioxide 19 mmol/L (20-31); Chloride 109 mmol/L (98-107); Glucose 145 mg/dL (74-106); Total Protein 3.5 g/dL (5.7-8.2)
--- NOTE | 2024-09-11 05:36 | DVH ---
CHEST RADIOGRAPH Indication: pna Technique: Single frontal view of the chest was obtained COMPARISON: XY CHEST PORTABLE on DOS: 09/10/24, XY CHEST PORTABLE on DOS: 09/09/24, XY CHEST PORTABLE o n DOS: 09/08/24, XY CHEST PORTABLE on DOS: 09/07/24, XY CHEST XRAY 1 VIEW on DOS: 09/06/24 FINDINGS: Lines and Tubes: Endotracheal tube, enteric catheter and right central venous catheter in satisfactor y position. Lungs: Multifocal airspace disease. Pleura: No effusion. No pneumothorax. Cardiomediastinal contours: Unremarkable Bones: Unremarkable IMPRESSION: Lines and tubes in satisfactory position. No significant interval change.
[2024-09-11 07:05] LABS: Platelet Count (auto) 24 10^3/uL (140-450)
[2024-09-11 07:06] LABS: Giant Platelets Few; Large Platelets FEW; Platelet Estimate Marked
[2024-09-11 09:11] LABS: Base Excess -7.1 mmol/L (-2.0-3.0)
--- NOTE | 2024-09-11 12:03 | DVHPN2 ---
Subjective Seen and examined at bedside, patient is on 30% Fio2, PEEP 5. Patient is on multiple vasopressors. I had a detailed explanation to the patients spouse Jesús on the phone. He will meet me tomorrow Friday at 9AM. Reviewed: Care Plan, H&P, Labs, Medications Changes from previous H/P or p: No Changes General: Per HPI Cardiovascular: Edema (3+ pitting edema to bilateral lower extremity) Objective Vitals Vital Signs Date Time Temp Pulse Resp B/P (MAP) Pulse Ox O2 Delivery O2 Flow Rate FiO2 09/11/24 11:55 105 09/11/24 10:00 30 09/11/24 09:57 20 106/57 (73) 100 09/11/24 08:00 Mechanical Ventilator+ 09/11/24 04:00 98.2 98.2 Intake/Output Intake and Output 09/11/24 07:00 Intake Total 1813.425 ml Output Total 175 ml Balance 1638.425 ml Intake Oral 100 ml IV Total 1465.425 ml Tube Feeding 248 ml Output Urine Total 175 ml Exam Gen: in bed intubated Cvs: N S1/S2 Resp: BLAE Abd: Soft Disc Jockey: Sedated Skin: Dry, Intact Medications Current Medications Medications Dose Ordered Sig/Abebe Route Start Time Stop Time Status Last Admin Dose Admin Albuterol 2.5 mg Q2HPRN PRN NEB 09/05/24 11:00 Ondansetron HCl 4 mg Q4HP PRN IV 09/05/24 11:30 Acetaminophen 650 mg Q6HP PRN PO 09/05/24 11:30 Nitroglycerin 0.4 mg Q5MINP PRN SL 09/05/24 11:30 Morphine Sulfate 2 mg Q30M PRN IV 09/05/24 11:30 Magnesium Oxide 400 mg DAILY PO 09/06/24 10:00 Hold Midazolam HCl 50 ml @ 1 mls/hr Q24H IV 09/06/24 09:45 09/07/24 18:54 5 MLS/HR Vasopressin 20 units/Sodium Chloride 100 ml @ 9 mls/hr Q11H7M IV 09/06/24 09:45 09/11/24 01:58 9 MLS/HR Meropenem 50 ml @ 17 mls/hr Q12HR IV 09/06/24 22:00 09/11/24 08:59 17 MLS/HR Pantoprazole Sodium 40 mg BID IV 09/06/24 22:00 09/11/24 09:52 40 MG Phenylephrine HCl 80 mg/Sodium Chloride 250 ml @ 7.5 mls/hr Q24H IV 09/07/24 19:30 09/11/24 03:46 10.313 MLS/HR Norepinephrine Bitartrate 32 mg/ Sodium Chloride 250 ml @ 0.938 mls/ hr Q24H IV 09/07/24 19:30 09/11/24 03:33 14.063 MLS/HR Epinephrine HCl 16 mg/Dextrose 250 ml @ 1.875 mls/ hr Q24H IV 09/07/24 19:30 09/11/24 08:56 9.375 MLS/HR Dobutamine HCl/ Dextrose 250 ml @ 9.465 mls/ hr Q24H IV 09/08/24 08:00 09/11/24 08:05 9.465 MLS/HR Albuterol 2.5 mg Q6HR NEB 09/08/24 12:00 09/11/24 00:00 2.5 MG Ipratropium [place] 0.5 mg Q6HR NEB 09/08/24 12:00 09/11/24 00:00 0.5 MG Bumetanide 25 mg/ Miscellaneous 100 ml @ 4 mls/hr Q24H IV 09/08/24 09:00 09/11/24 04:17 4 MLS/HR Enteral Nutritional Formula 1,000 ml 30ML/HR GT 09/09/24 09:30 09/09/24 15:14 1,000 ML Multivitamins 1 tab DAILY PO 09/09/24 10:00 09/11/24 09:52 1 TAB Thiamine HCl 100 mg DAILY PO 09/09/24 10:00 09/11/24 09:52 100 MG Micafungin Sodium 100 mg/Sodium Chloride 100 ml @ 100 mls/hr DAILY IV 09/10/24 10:00 09/10/24 11:20 100 MLS/HR Metoclopramide HCl 5 mg Q8HR GT 09/10/24 14:00 09/11/24 06:15 5 MG Laboratory Results Laboratory Tests 09/11/24 03:20 Chemistry Test 09/11/24 03:20 Albumin 2.1 g/dL (3.2-4.8) L Calcium Level 6.7 mg/dL (8.7-10.4) L Total Protein 3.5 g/dL (5.7-8.2) L LFT Test 09/11/24 03:20 Alanine Aminotransferase (ALT) 35 U/L (7-40) Alkaline Phosphatase 670 U/L (46-116) H Aspartate Amino Transferase (AST) 60 U/L (13-40) H Total Bilirubin 1.6 mg/dL (0.2-1.0) H Urinalysis Test 09/08/24 05:05 Urine Color Yellow (Yellow) Urine Clarity Turbid (Clear) H Urine pH 6.0 (5.0-9.0) Urine Specific [place] 1.009 (1.001-1.035) Urine Protein 1+ (Negative) H Urine Ketones Negative (Negative) Urine Blood 1+ /uL (Negative) H Urine Nitrite Negative (Negative) Urine Bilirubin Negative (Negative) Urine Urobilinogen Normal mg/dL (Negative) Urine Leukocyte Esterase 3+ /uL (Negative) Urine RBC 17 /hpf (0 - 4) Urine WBC 25 /hpf (0 - 5) Urine Squamous Epithelial Cells Few /hpf (<5) Urine Bacteria Few /hpf (None Seen) H Urine Mucus Few (None Seen) Urine Yeast (Budding) Many /hpf (None Seen) Urine Glucose Normal mg/dL (Normal) Blood Gas Results Test 09/11/24 07:48 Arterial Blood pH 7.308 (7.350-7.450) FiO2 % 40.0 Microbiology Microbiology Date/Time Source Procedure Growth Status 09/08/24 05:05 Urine - Catheterized Urine Culture - Preliminary Citrobacter koseri Resulted 09/07/24 07:00 Nose MRSA Screen - Final Complete 09/06/24 09:55 Sputum Gram Stain - Final Resulted 09/06/24 09:55 Respiratory Culture - Preliminary Klebsiella oxytoca Stenotrophomonas maltophilia Resulted Assessment/Plan Assessment/Plan -metabolic encephalopathy -history of alcoholism -? Dementia -bilateral DVTs -liver cirrhosis -probable GI bleed with worsening anemia -hypoalbuminemia -acute kidney injury, hemodynamically mediated,? V MN -acute hypoxic respiratory failure -rule out aspiration pneumonia -shock, probable septic and hemorrhagic etiology -hypothermia Plan: Cont Vasopressors Cont Abx Critical care time 50 mins Plan discussed with: Spouse Date of Service: Sep 11, 2024 Billing Provider: JUANJO BAEZ MD Common Visit Codes: [id number] CARE 30-74 MIN JUANJO BAEZ MD Sep 11, 2024 12:03
--- NOTE | 2024-09-11 17:13 | DVHPN2 ---
Progress Note Date Seen: Sep 11, 2024 Medical Necessity Reason Pt with a Central, PICC or Fol: Yes The following are medically ne: Central Line, Camacho Catheter Subjective Patient reports: Other (daughter bedside) Review of Systems: Deferred Objective vital signs Vital Sign Date Time Temp Pulse Resp B/P (MAP) Pulse Ox O2 Delivery O2 Flow Rate FiO2 09/11/24 17:00 105 20 107/72 (84) 99 113/62 (79) 09/11/24 16:42 30 09/11/24 16:00 98.5 98.5 09/11/24 08:00 Mechanical Ventilator+ Total Intake and Output 09/10/24 09/10/24 09/11/24 15:00 23:00 07:00 Intake Total 610.2 ml 691.715 ml 562.880 ml Output Total 100 ml 75 ml Balance 610.2 ml 591.715 ml 487.880 ml medications Current Medications Medications Dose Ordered Sig/Abebe Route Start Time Stop Time Status Last Admin Dose Admin Albuterol 2.5 mg Q2HPRN PRN NEB 09/05/24 11:00 Ondansetron HCl 4 mg Q4HP PRN IV 09/05/24 11:30 Acetaminophen 650 mg Q6HP PRN PO 09/05/24 11:30 Nitroglycerin 0.4 mg Q5MINP PRN SL 09/05/24 11:30 Morphine Sulfate 2 mg Q30M PRN IV 09/05/24 11:30 Magnesium Oxide 400 mg DAILY PO 09/06/24 10:00 Hold Midazolam HCl 50 ml @ 1 mls/hr Q24H IV 09/06/24 09:45 09/07/24 18:54 5 MLS/HR Vasopressin 20 units/Sodium Chloride 100 ml @ 9 mls/hr Q11H7M IV 09/06/24 09:45 09/11/24 12:50 9 MLS/HR Meropenem 50 ml @ 17 mls/hr Q12HR IV 09/06/24 22:00 09/11/24 08:59 17 MLS/HR Pantoprazole Sodium 40 mg BID IV 09/06/24 22:00 09/11/24 09:52 40 MG Phenylephrine HCl 80 mg/Sodium Chloride 250 ml @ 7.5 mls/hr Q24H IV 09/07/24 19:30 09/11/24 13:06 5.625 MLS/HR Norepinephrine Bitartrate 32 mg/ Sodium Chloride 250 ml @ 0.938 mls/ hr Q24H IV 09/07/24 19:30 09/11/24 13:00 14.063 MLS/HR Epinephrine HCl 16 mg/Dextrose 250 ml @ 1.875 mls/ hr Q24H IV 09/07/24 19:30 09/11/24 12:56 9.375 MLS/HR Dobutamine HCl/ Dextrose 250 ml @ 9.465 mls/ hr Q24H IV 09/08/24 08:00 09/11/24 08:05 9.465 MLS/HR Albuterol 2.5 mg Q6HR NEB 09/08/24 12:00 09/11/24 00:00 2.5 MG Ipratropium [place] 0.5 mg Q6HR NEB 09/08/24 12:00 09/11/24 00:00 0.5 MG Bumetanide 25 mg/ Miscellaneous 100 ml @ 4 mls/hr Q24H IV 09/08/24 09:00 09/11/24 04:17 4 MLS/HR Enteral Nutritional Formula 1,000 ml 30ML/HR GT 09/09/24 09:30 09/09/24 15:14 1,000 ML Multivitamins 1 tab DAILY PO 09/09/24 10:00 09/11/24 09:52 1 TAB Thiamine HCl 100 mg DAILY PO 09/09/24 10:00 09/11/24 09:52 100 MG Micafungin Sodium 100 mg/Sodium Chloride 100 ml @ 100 mls/hr DAILY IV 09/10/24 10:00 09/11/24 13:14 100 MLS/HR Metoclopramide HCl 5 mg Q8HR GT 09/10/24 14:00 09/11/24 13:14 5 MG Examination: GENERAL:Abnormal, LUNGS:Abnormal, MSK:Abnormal, SKIN:Abnormal, NEURO:Abnormal laboratory and microbiology Laboratory Tests 09/11/24 03:20 Test 09/11/24 03:20 Range/Units Serum Glucose 145 H 74-106 mg/dL Microbiology Date/Time Source Procedure Growth Status 09/08/24 05:05 Urine - Catheterized Urine Culture - Final Citrobacter koseri Yeast, not Basia albicans Complete 09/07/24 07:00 Nose MRSA Screen - Final Complete 09/06/24 09:55 Sputum Gram Stain - Final Resulted 09/06/24 09:55 Respiratory Culture - Preliminary Klebsiella oxytoca Stenotrophomonas maltophilia Resulted Problem List/Assessment/Plan Problem List/Assessment/Plan Acute kidney injury hemodynamically mediated in setting of shock Cirrhosis with ascites History of CHF ef 25% Nonobstructing kidney stone Acute bilateral DVT Acute respiratory failure Anemia due to blood loss multiorgan failure shock hypocalcemia recs bumex drip to continue max on 5 pressors on multiple pressors with low BP will f/u d/w daughter not stable for HD Plan discussed with: Other Dietary Evaluation Review Comments: 1) If GI is accessible consider Jevity 1.2 @ 35 ml/hr x 24hr goal rate as tolerated 2) If pt remains NPO >7 days consider TPN to meet at least 75% of estimated needs 3) Advance pt diet when medically feasible to a 2gm Sodium diet modified per [employer] recommendations Expected Outcomes/Goals: 1) Pt to receive nutrition support within 7 days of NPO status 2) Pt diet to advance 3) F/U in 2-3 days CC Plasma Assessment Blood Product Administration S: [id number] EDEN DELEON MD Sep 11, 2024 17:13
[2024-09-12] VITALS (64 sets, daily range): BP systolic 6–130; BP diastolic 2–81; PULSE 46–110; RESP 4–26; TEMP 96.3–98.3; O2SAT 84–100
[2024-09-12 03:49] LABS: Basophils # (auto) 0 10 ^3/uL (0-0.2); Basophils % (auto) 0.2 % (0.0-2.0); Eosinophils # (auto) 0 10 ^3/uL (0-0.8); Hematocrit 29.8 % (36.0-46.0); Hemoglobin 9.8 g/dL (12.2-16.2); Mean Corpuscular Hgb Conc. 32.9 g/dL (32.0-36.0); Monocytes # (auto) 0.4 10 ^3/uL (0-1.3); Neutrophils # (auto) 11.7 10 ^3/uL (1.6-8.6); Nucleated Red Blood Cells % 1.5 %
[2024-09-12 03:55] LABS: Lymphocytes # (auto) 1.3 10 ^3/uL (0.4-5.4); Lymphocytes % (auto) 9.7 % (10.0-50.0); Mean Corpuscular Hemoglobin 32.6 pg (28.0-32.0); Mean Corpuscular Volume 98.9 fL (80.0-100.0); Monocytes % (auto) 3.3 % (0.0-12.0); Neutrophils % (auto) 86.8 % (37.0-80.0); Red Blood Cells 3.01 10^6/uL (4.0-5.20); White Blood Cell 13.5 10^3/uL (4.4-10.8)
[2024-09-12 04:18] LABS: Anion Gap 8 (5-15); BUN/Creatinine Ratio 12.8 (10.0-20.0); Potassium 3.8 mmol/L (3.5-5.1); Sodium 136 mmol/L (136-145)
[2024-09-12 04:20] LABS: Alanine Aminotransferase 40 U/L (7-40); Alkaline Phosphatase 895 U/L (46-116); Aspartate Aminotransferase 56 U/L (13-40); Bilirubin, Total 1.9 mg/dL (0.2-1.0); Blood Urea Nitrogen 28 mg/dL (9-23); Calcium 7.4 mg/dL (8.7-10.4); Carbon Dioxide 19 mmol/L (20-31); Chloride 109 mmol/L (98-107); Glucose 164 mg/dL (74-106); Magnesium 1.4 mg/dL (1.6-2.6); Total Protein 3.5 g/dL (5.7-8.2)
[2024-09-12 05:18] LABS: Red Cell Distribution Width 20.5 % (11.8-14.3)
[2024-09-12 05:19] LABS: Platelet Count (auto) 22 10^3/uL (140-450)
[2024-09-12] MEDS: MAGNESIUM SULFATE 1GM/100ML 100 ML IV ONE (05:23)
[2024-09-12 05:25] LABS: Anisocytosis Slight; Large Platelets FEW; Platelet Estimate Marked
--- NOTE | 2024-09-12 05:39 | DVH ---
CHEST RADIOGRAPH Indication: pna Technique: Single frontal view of the chest was obtained COMPARISON: XY CHEST PORTABLE on DOS: 09/11/24, XY CHEST PORTABLE on DOS: 09/10/24, XY CHEST PORTABLE o n DOS: 09/09/24, XY CHEST PORTABLE on DOS: 09/08/24, XY CHEST PORTABLE on DOS: 09/07/24 FINDINGS: Lines and Tubes: Interval retraction of the endotracheal tube with improved aeration in the left lung . Lungs: Unchanged airspace disease in the right lower lung. Pleura: No effusion. No pneumothorax. Cardiomediastinal contours: Unremarkable Bones: Unremarkable IMPRESSION: 1. Satisfactory position of endotracheal tube with improved aeration of the left lung.
[2024-09-12 07:21] LABS: Base Excess -8.4 mmol/L (-2.0-3.0)
--- NOTE | 2024-09-12 08:51 | MEDREC ---
[facility] Intervention Section I [facility] Intervention: Review courses of therapy (PLEASE CONSIDER ADDING COVERAGE FOR STENOTROPHOMONAS MALTOPHILIA IF CLINICALLY RELEVANT) DEISI CORNELIUS PHARMACIST Sep 12, 2024 08:51
--- NOTE | 2024-09-12 12:15 | DVHDS2 ---
Discharge Summary Date of Admission Sep 05, 2024 at 11:30 Date of Discharge: Sep 12, 2024 Labs/Diagnostic Data: Laboratory Results Test 09/12/24 07:08 09/12/24 03:39 09/11/24 03:20 09/10/24 07:37 Blood Gas Specimen Type Arterial Blood Gas Sample Site Arterial line Blood Gas Patient Temperature 37.0 Arterial Blood Date Drawn [id number] Arterial Blood pH 7.293 (7.350-7.450) Arterial Blood Partial Pressure CO2 36.8 mmHg (32.0-45.0) Arterial Blood Partial Pressure O2 88.9 mmHg (83.0-108.0) Arterial Blood HCO3 17.4 mmol/L (21.0-28.0) Arterial Blood Oxygen Saturation 95.6 % (94.0-98.0) Arterial Blood Base Excess -8.4 mmol/L (-2.0-3.0) Arterial Blood Oxyhemoglobin 93.1 % (94.0-98.0) Arterial Blood Carboxyhemoglobin 1.8 % (0.5-1.5) Arterial Blood Methemoglobin 0.8 % (0.0-1.5) Damián Test N/a Blood Gas Total Hemoglobin 8.30 g/dL (12.0-16.0) Blood Gas Set Respiration Rate 20.0 Blood Gas Modality Vent - ac FiO2 % 30.0 Blood Gas Tidal Volume 400.0 Blood Gas PEEP or CPAP 5.0 White Blood Count 13.5 10^3/uL (4.4-10.8) Red Blood Count 3.01 10^6/uL (4.0-5.20) Hemoglobin 9.8 g/dL (12.2-16.2) Hematocrit 29.8 % (36.0-46.0) Mean Corpuscular Volume 98.9 fL (80.0-100.0) Mean Corpuscular Hemoglobin 32.6 pg (28.0-32.0) Mean Corpuscular Hemoglobin Concent 32.9 g/dL (32.0-36.0) Red Cell Distribution Width 20.5 % (11.8-14.3) Platelet Count 22 10^3/uL (140-450) Mean Platelet Volume 11.1 fL (6.9-10.8) Neutrophils (%) (Auto) 86.8 % (37.0-80.0) Lymphocytes (%) (Auto) 9.7 % (10.0-50.0) Monocytes (%) (Auto) 3.3 % (0.0-12.0) Eosinophils (%) (Auto) 0.0 % (0.0-7.0) Basophils (%) (Auto) 0.2 % (0.0-2.0) Neutrophils # (Auto) 11.7 10 ^3/uL (1.6-8.6) Lymphocytes # (Auto) 1.3 10 ^3/uL (0.4-5.4) Monocytes # (Auto) 0.4 10 ^3/uL (0-1.3) Eosinophils # (Auto) 0 10 ^3/uL (0-0.8) Basophils # (Auto) 0 10 ^3/uL (0-0.2) Nucleated Red Blood Cells 1.5 % Platelet Estimate Marked Large Platelets Few Anisocytosis (manual) Slight Sodium Level 136 mmol/L (136-145) Potassium Level 3.8 mmol/L (3.5-5.1) Chloride Level 109 mmol/L (98-107) Carbon Dioxide Level 19 mmol/L (20-31) Anion Gap 8 (5-15) Blood Urea Nitrogen 28 mg/dL (9-23) Creatinine 2.18 mg/dL (0.550-1.02) Glomerular Filtration Rate Calc 24 mL/min (>90) BUN/Creatinine Ratio 12.8 (10.0-20.0) Serum Glucose 164 mg/dL (74-106) Calcium Level 7.4 mg/dL (8.7-10.4) Magnesium Level 1.4 mg/dL (1.6-2.6) Total Bilirubin 1.9 mg/dL (0.2-1.0) Aspartate Amino Transferase (AST) 56 U/L (13-40) Alanine Aminotransferase (ALT) 40 U/L (7-40) Alkaline Phosphatase 895 U/L (46-116) Total Protein 3.5 g/dL (5.7-8.2) Albumin 2.0 g/dL (3.2-4.8) Giant Platelets Few Blood Gas Critical Value Read Back yes Blood Gas Notified Whom trisha Nova np Blood Gas Notified Time [id number] Blood Gas Notified By Test 09/09/24 03:50 09/08/24 05:05 09/08/24 03:10 09/07/24 08:39 Differential Total Cells Counted 100.0 (100) Neutrophils % (Manual) 66 (37.0-80.0) Band Neutrophils % (Manual) 22 Lymphocytes % (Manual) 4 (10.0-50.0) Monocytes % (Manual) 7 (0-12) Eosinophils % (Manual) 0 (0-7) Basophils % (Manual) 0 (0.0-2.0) Metamyelocytes % (manual) 1 Myelocytes % (Manual) 0 Promyelocytes % (Manual) 0 Blast Cells % (Manual) 0 Reactive Lymphocytes 0 Macrocytosis Slight Target Cells Few Stomatocytes Few Trey Cells Moderate Schistocytes Few Ammonia 27 umol/L (11-32) Urine Color Yellow (Yellow) Urine Clarity Turbid (Clear) Urine pH 6.0 (5.0-9.0) Urine Specific [place] 1.009 (1.001-1.035) Urine Protein 1+ (Negative) Urine Ketones Negative (Negative) Urine Blood 1+ /uL (Negative) Urine Nitrite Negative (Negative) Urine Bilirubin Negative (Negative) Urine Urobilinogen Normal mg/dL (Negative) Urine Leukocyte Esterase 3+ /uL (Negative) Urine RBC 17 /hpf (0 - 4) Urine WBC 25 /hpf (0 - 5) Urine Squamous Epithelial Cells Few /hpf (<5) Urine Bacteria Few /hpf (None Seen) Urine Mucus Few (None Seen) Urine Yeast (Budding) Many /hpf (None Seen) Urine Glucose Normal mg/dL (Normal) Ovalocytes Few Prothrombin Time 17.9 sec (9.3-11.8) Prothrombin Time INR 1.79 (0.9-1.15) Activated Partial Thromboplast Time 69.4 SEC (24.5-34.5) Test 09/07/24 04:07 09/06/24 22:11 09/06/24 05:40 09/05/24 11:59 Clumped Platelets None Troponin I High Sensitivity 113 ng/L (</=34) Blood Gas Spontaneous Rate 18 Specimen Drawn By Gilda araiza rt Carcinoembryonic Antigen 18.56 ng/mL (<=5.0) Thyroid Stimulating Hormone (TSH) 1.84 uIU/mL (0.55-4.78) Serum Osmolality 304 mOsm/kg (278-298) Iron Level 66 ug/dL (50-170) Total Iron Binding Capacity 115 ug/dL (250-425) Percent Iron Saturation 57.4 % (15-50) Direct Bilirubin 1.3 mg/dL (<0.3) Test 09/05/24 03:47 09/05/24 03:30 Creatine Kinase 416 U/L (34-145) B-Type Natriuretic Peptide 87.08 pg/mL (0-100) Other Laboratory Tests 09/12/24 03:39 Brief Hx & Hospital Course: This is a 69-year-old emaciated female with history of hypertension, hyperlipidemia, Alzheimer and dementia presents to ED via EMS due to bilateral lower extremity swelling associated with lethargy and progressive generalized weakness. On scene patient found to be hypotensive at 75/50 mmHg. Upon evaluation of patient, bilateral lower extremity with 3+ pitting edema along with existing large bruise to the left leg. When asked about bruise to her leg she states , "my grabbed my leg. When asked about overall care at home she states I am hungry, I used to drink alcohol every day last drank one five days ago. The patient will be admitted under hospitalist care to the telemetry unit for continuous monitoring. The patient will be started on heparin drip per protocol for bilateral lower extremity DVTs that were found on imaging. Patient developed respiratory failure therefore patient was intubated. Patient was in septic shock patient was on multiple vasopressors and antibiotics. I had a family meeting with the patient's spouse and children at bedside collectively family decided for the patient to be DNR DNI and terminal extubation as the patient did not want to be dependent on artificial life support. Patient at 12:07 p.m.. Patient's spouse, daughters and son at bedside. Condition at Discharge: Undetermined Final Diagnosis/Problems List -metabolic encephalopathy -history of alcoholism -? Dementia -bilateral DVTs -liver cirrhosis -probable GI bleed with worsening anemia -hypoalbuminemia -acute kidney injury, hemodynamically mediated,? V MN -acute hypoxic respiratory failure -rule out aspiration pneumonia -shock, probable septic and hemorrhagic etiology -hypothermia Discharge Disposition: at Hospital Discharge Statement: This discharge took greater then 30 minutes in planning, reviewing documentation, counseling the patient, and discussing with other team members." ASSESSMENT ASSESSMENT Assessment Date of Service: Sep 12, 2024 Billing Provider: JUANJO BAEZ MD Common Visit Codes: 18871-GPB/OBS DISCH DAY >30min JUANJO BAEZ MD Sep 12, 2024 12:15
--- NOTE | 2024-09-12 12:27 | DVHPN2 ---
Progress Note Date Seen: Sep 12, 2024 Medical Necessity Reason Pt with a Central, PICC or Fol: Yes The following are medically ne: Central Line, Camacho Catheter Subjective Patient reports: Other Review of Systems: Deferred Objective vital signs Vital Sign Date Time Temp Pulse Resp B/P (MAP) Pulse Ox O2 Delivery O2 Flow Rate FiO2 09/12/24 11:28 106/58 09/12/24 11:19 104 20 99 30 09/12/24 08:00 96.3 96.3 09/11/24 20:00 Mechanical Ventilator+ Total Intake and Output 09/11/24 09/11/24 09/12/24 15:00 23:00 07:00 Intake Total 562.035 ml 871.650 ml 824.224 ml Output Total 100 ml 100 ml Balance 562.035 ml 771.650 ml 724.224 ml medications Current Medications Medications Dose Ordered Sig/Abebe Route Start Time Stop Time Status Last Admin Dose Admin Albuterol 2.5 mg Q2HPRN PRN NEB 09/05/24 11:00 Ondansetron HCl 4 mg Q4HP PRN IV 09/05/24 11:30 Acetaminophen 650 mg Q6HP PRN PO 09/05/24 11:30 Nitroglycerin 0.4 mg Q5MINP PRN SL 09/05/24 11:30 Morphine Sulfate 2 mg Q30M PRN IV 09/05/24 11:30 Magnesium Oxide 400 mg DAILY PO 09/06/24 10:00 Hold Midazolam HCl 50 ml @ 1 mls/hr Q24H IV 09/06/24 09:45 09/07/24 18:54 5 MLS/HR Vasopressin 20 units/Sodium Chloride 100 ml @ 9 mls/hr Q11H7M IV 09/06/24 09:45 09/12/24 11:28 9 MLS/HR Meropenem 50 ml @ 17 mls/hr Q12HR IV 09/06/24 22:00 09/11/24 22:48 17 MLS/HR Pantoprazole Sodium 40 mg BID IV 09/06/24 22:00 09/11/24 22:48 40 MG Phenylephrine HCl 80 mg/Sodium Chloride 250 ml @ 7.5 mls/hr Q24H IV 09/07/24 19:30 09/11/24 13:06 5.625 MLS/HR Norepinephrine Bitartrate 32 mg/ Sodium Chloride 250 ml @ 0.938 mls/ hr Q24H IV 09/07/24 19:30 09/12/24 06:49 14.063 MLS/HR Epinephrine HCl 16 mg/Dextrose 250 ml @ 1.875 mls/ hr Q24H IV 09/07/24 19:30 09/11/24 12:56 9.375 MLS/HR Dobutamine HCl/ Dextrose 250 ml @ 9.465 mls/ hr Q24H IV 09/08/24 08:00 09/12/24 08:41 9.465 MLS/HR Albuterol 2.5 mg Q6HR NEB 09/08/24 12:00 09/12/24 11:19 2.5 MG Ipratropium [place] 0.5 mg Q6HR NEB 09/08/24 12:00 09/12/24 11:19 0.5 MG Bumetanide 25 mg/ Miscellaneous 100 ml @ 4 mls/hr Q24H IV 09/08/24 09:00 09/12/24 05:24 4 MLS/HR Enteral Nutritional Formula 1,000 ml 30ML/HR GT 09/09/24 09:30 09/09/24 15:14 1,000 ML Multivitamins 1 tab DAILY PO 09/09/24 10:00 09/11/24 09:52 1 TAB Thiamine HCl 100 mg DAILY PO 09/09/24 10:00 09/11/24 09:52 100 MG Micafungin Sodium 100 mg/Sodium Chloride 100 ml @ 100 mls/hr DAILY IV 09/10/24 10:00 09/11/24 13:14 100 MLS/HR Metoclopramide HCl 5 mg Q8HR GT 09/10/24 14:00 09/12/24 05:23 5 MG laboratory and microbiology Laboratory Tests 09/12/24 03:39 Test 09/12/24 03:39 Range/Units Serum Glucose 164 H 74-106 mg/dL Microbiology Date/Time Source Procedure Growth Status 09/08/24 05:05 Urine - Catheterized Urine Culture - Final Citrobacter koseri Yeast, not Basia albicans Complete 09/07/24 07:00 Nose MRSA Screen - Final Complete 09/06/24 09:55 Sputum Gram Stain - Final Resulted 09/06/24 09:55 Respiratory Culture - Preliminary Klebsiella oxytoca Stenotrophomonas maltophilia Resulted Problem List/Assessment/Plan Problem List/Assessment/Plan Acute kidney injury hemodynamically mediated in setting of shock Cirrhosis with ascites History of CHF ef 25% Nonobstructing kidney stone Acute bilateral DVT Acute respiratory failure Anemia due to blood loss multiorgan failure shock hypocalcemia recs bumex drip to continue max on 5 pressors on multiple pressors with low BP will f/u d/w daughter not stable for HD Hospitalist discussion with family regarding goals of care ongoing currently and possible comfort measures today Plan discussed with: Other Dietary Evaluation Review Comments: 1) If GI is accessible consider Jevity 1.2 @ 35 ml/hr x 24hr goal rate as tolerated 2) If pt remains NPO >7 days consider TPN to meet at least 75% of estimated needs 3) Advance pt diet when medically feasible to a 2gm Sodium diet modified per [employer] recommendations Expected Outcomes/Goals: 1) Pt to receive nutrition support within 7 days of NPO status 2) Pt diet to advance 3) F/U in 2-3 days CC Plasma Assessment Blood Product Administration S: [id number] EDEN DELEON MD Sep 12, 2024 12:27
== END 2024-09-12 16:50 | DRG 870 ==
LOC: EDBD 02:47 → EDUNIT# 02:47 → ER 02:47 → EEVIPCON 11:30 → TELE 11:30 → ER 11:35 → ICU WEST 09-07 05:23
PROVIDERS: ADMIT Internal Medicine; ATTEND Internal Medicine
PROC: 30233N1 Transfusion of Nonautologous Red Blood Cells into Peripheral Vein, Percutaneous Approach (ICD-10-PCS; 2024-09-06)
PROC: 5A1955Z Respiratory Ventilation, Greater than 96 Consecutive Hours (ICD-10-PCS; principal; 2024-09-07)
PROC: 0BH17EZ Insertion of Endotracheal Airway into Trachea, Via Natural or Artificial Opening (ICD-10-PCS; 2024-09-07)
PROC: 04HY32Z Insertion of Monitoring Device into Lower Artery, Percutaneous Approach (ICD-10-PCS; 2024-09-07)
DX: A41.9 Sepsis, unspecified organism (principal); G93.41 Metabolic encephalopathy; J96.01 Acute respiratory failure with hypoxia; N17.0 Acute kidney failure with tubular necrosis; R65.21 Severe sepsis with septic shock; J69.0 Pneumonitis due to inhalation of food and vomit; K92.2 Gastrointestinal hemorrhage, unspecified; R18.8 Other ascites; R64 Cachexia; D50.0 Iron deficiency anemia secondary to blood loss (chronic); E78.5 Hyperlipidemia, unspecified; E87.6 Hypokalemia; E88.09 Other disorders of plasma-protein metabolism, not elsewhere classified; F02.80 Dementia in other diseases classified elsewhere, unspecified severity, without behavioral disturbance, psychotic disturbance, mood disturbance, and anxiety; F10.10 Alcohol abuse, uncomplicated; F17.200 Nicotine dependence, unspecified, uncomplicated; G30.9 Alzheimer's disease, unspecified; K72.90 Hepatic failure, unspecified without coma; K74.60 Unspecified cirrhosis of liver; K76.0 Fatty (change of) liver, not elsewhere classified; N20.0 Calculus of kidney; S80.12XA Contusion of left lower leg, initial encounter; I11.0 Hypertensive heart disease with heart failure; Y90.9 Presence of alcohol in blood, level not specified; I50.9 Heart failure, unspecified; E83.51 Hypocalcemia; X58.XXXA Exposure to other specified factors, initial encounter; Y93.89 Activity, other specified; Y92.89 Other specified places as the place of occurrence of the external cause; Y99.8 Other external cause status
CPT/HCPCS: 31500; 36415; 36600; 36620; 70450; 71045; 71250; 73590; 74176; 76700; 80048; 80053; 81001; 82140; 82248; 82378; 82550; 82805; 83540; 83550; 83735; 83880; 83930; 84443; 84484; 85007; 85014; 85018; 85025; 85027; 85610; 85730; 86850; 86900; 86901; 86922; 87070; 87077; 87081; 87086; 87088; 87186; 87205; 93306; 93970; 94003; 94640; 96365; 99291; G0378; J0171; J0330; J2185; J2248; J2470; J3480; J7060; P9047